=== PATIENT | female | born 1955 | race Hispanic/Latino ===

== ENCOUNTER 2017-05-17 13:32 | Inpatient (IN) | payer MEDICARE, MEDICAID ==
--- NOTE | 2017-05-17 15:26 | HP ---
DATE OF ADMISSION: 05/17/2017 PRIMARY CARE PHYSICIAN: Roman Melendez M.D. CODE STATUS: FULL CODE. PRIMARY RETANNER: Reinaldo Downey M.D. CHIEF COMPLAINT: Shortness of breath. HISTORY OF PRESENT ILLNESS: Patient is a 61-year-old female with morbid obesity , chronic respiratory failure, on home oxygen, status post tracheostomy, COPD, hypertension, obstructive sleep apnea, presented to the emergency room at [place] with worsening shortness of breath of 2 weeks' duration. Shortness of breath is worse on lying down. She also noticed worsening bilateral lower extremity swelling. She also had some cough that was productive of thick whitish phlegm. She also had intermittent wheezing. Due to her progressive worsening symptoms along with weight gain of 18 pounds over the last 2 weeks, she was sent to the emergency room for evaluation. In the emergency room, her initial vital signs showed temperature 98.3, respirations 18, pulse rate of 65 with blood pressure of 155/68. Her x-ray showed pulmonary vascular congestion with questionable infiltrate. Her EKG showed sinus rhythm without significant ST-T wave changes. She received Levaquin 750 mg along with 80 mg of Lasix and DuoNebs and was transferred to this facility. Blood cultures were drawn at [place]. PAST MEDICAL HISTORY: 1. Chronic respiratory failure, status post tracheostomy and home oxygen. 2. Diabetes mellitus type 2. 3. Dyslipidemia. 4. Hypertension. 5. Chronic lymphedema. 6. Morbid obesity. 7. Obstructive sleep apnea. 8. Restless leg syndrome. 9. Anxiety and depression. 10. GERD. 11. Degenerative joint disease. 12. Chronic pain syndrome. 13. Chronic venous insufficiency. PAST SURGICAL HISTORY: Tracheostomy, cholecystectomy in 1995, hysterectomy in 1990. ALLERGIES: The patient is allergic to TYLENOL, IODINE, PENICILLIN-G, and IBUPROFEN. CURRENT MEDICATIONS AT [facility]F: According to the list provided from the retirement, ferrous sulfate 325 mg daily; simvastatin 10 mg daily; Zaroxolyn 5 mg on Tuesday, Tuesday and Tuesday; Xanax as needed; carvedilol 3.125 mg twice a day; Lasix 40 mg b.i.d.; Mucinex 600 mg b.i.d.; Protonix 40 mg twice a day; potassium chloride 40 mEq 3 times a day; DuoNebs as needed. Oxygen through trach mask; Nystatin powder as needed, tramadol as needed. SOCIAL HISTORY: Patient currently lives at [facility] under the care of Dr. Melendez. She is more or less wheelchair bound. Denies current use of smoking, alcohol or drug use. FAMILY HISTORY: Significant for diabetes and coronary artery disease in her mother. REVIEW OF SYSTEMS: The following complete review of systems was negative, unless otherwise mentioned in the HPI or below: Constitutional: Weight loss or gain, ability to conduct usual activities. Skin: Rash, itching. Eyes: Double vision, pain. ENT/Mouth: Nose bleeding, neck stiffness, pain, tenderness. Cardiovascular: Palpitations, dyspnea on exertion, orthopnea. Respiratory: Shortness of breath, wheezing, cough, hemoptysis, fever or night sweats. Gastrointestinal: Poor appetite, abdominal pain, heartburn, nausea, vomiting, constipation, or diarrhea. Genitourinary: Urgency, frequency, dysuria, nocturia. Musculoskeletal: Pain, swelling. Neurologic/Psychiatric: Anxiety, depression. Allergy/Immunologic: Skin rash, bleeding tendency. PHYSICAL EXAMINATION: VITAL SIGNS: As discussed above. Her O2 sat here was 90% on room air. Improved with O2 supplementation. HEENT: Head is atraumatic, normocephalic. Sclerae are anicteric. Moist mucous membranes. No oral lesion. Trach mask in place. NECK: Supple, no JVD, no carotid bruit. LUNGS: Showed bibasilar crackles with scattered rhonchi and wheezing. Lungs were symmetrical. HEART: S1 and S2 present. Regular rate and rhythm. No significant murmur, rubs or gallops are appreciated. ABDOMEN: Soft, obese, bowel sounds present. EXTREMITIES: Bilateral lower extremity swelling. There was 2+ edema, no calf tenderness. SKIN: Warm and dry. LYMPH NODES: No palpable lymph nodes in the neck. PERIPHERAL VASCULAR: Radial pulses palpable bilaterally. MUSCULOSKELETAL: No joint swelling or tenderness. SKIN: Warm and dry. LYMPH NODES: No palpable lymph nodes in the neck. PERIPHERAL VASCULAR: Radial pulses palpable bilaterally. LABORATORY DATA AND IMAGIN. CBC showed WBC 6.9 with hemoglobin 12.2, hematocrit 37.2, and platelet of 228. 2. D-dimer was 0.97. 3. PT, INR, PTT normal range. 4. BNP was 57.7. 5. Cardiac enzymes were negative. Lactic acid was 2.2. Potassium was 3.4. Sodium was 141 with chloride of 99 and bicarbonate of 29. 6. EKG and chest x-ray by my review as discussed above. IMPRESSION: 1. Acute on chronic diastolic heart failure exacerbation. 2. Acute on chronic hypoxic respiratory failure. 3. Obstructive sleep apnea. 4. Morbid obesity. 5. Chronic obstructive pulmonary disease. 6. Chronic lymphedema with chronic venous stasis. 7. Hypertension. 8. Hypokalemia. 9. Gastroesophageal reflux disease. 10. Chronic pain syndrome. 11. Hyperlipidemia. PLAN: The patient will be monitored on the telemetry unit. We will continue O2 supplementation through tracheostomy mask. Pulmonary will be consulted in a.m. We will continue gentle diuretics. Nebulizer treatments will be added. We will hold steroids for now. We will resume selected home medications. We will replace potassium. Plan of care was discussed with the patient. She stated understanding. The patient was extensively counseled on heart failure. Plan of care was discussed with the patient. She stated understanding. The patient will require 2-3 days for stabilization. MTDD
[2017-05-17] MEDS ORDERED: Ondansetron HCl/PF 4 MG/2 ML Vial IVP PRN ×2 (17:26→17:42)
[2017-05-17] MEDS ORDERED: Ondansetron ODT 4 MG TAB SL PRN (17:26)
[2017-05-17] MEDS ORDERED: hydrALAZINE 20 MG/ML VIAL SLOW IVP PRN (17:42)
[2017-05-17] MEDS ORDERED: Ondansetron ODT 4 MG TAB PO PRN (17:42)
[2017-05-17] MEDS ORDERED: Calcium Carbonate 500 MG ChewTAB PO PRN (17:42)
[2017-05-17] MEDS ORDERED: Nitroglycerin 0.4 MG TAB (25 Tab Bottle) PO PRN (17:42)
[2017-05-17] MEDS ORDERED: Senokot 8.6 MG TAB PO PRN (17:42)
[2017-05-17] MEDS ORDERED: Acetaminophen 325 MG TAB PO PRN (17:42)
[2017-05-17] MEDS ORDERED: Potassium Chloride 20 MEQ TAB PO SCH (18:45)
[2017-05-17] MEDS ORDERED: Furosemide 100 MG in Sodium Chloride 0.9% 100 ML IVPB SCH (19:00)
[2017-05-17] MEDS: traMADol HCl 50 MG TAB PO PRN (21:11)
[2017-05-17] MEDS: Carvedilol 3.125 MG TAB PO SCH (21:29)
[2017-05-17] MEDS: Simvastatin 5 MG TAB PO SCH (21:29)
[2017-05-17] MEDS: Enoxaparin Sodium 40 MG/0.4 ML SYRINGE SC SCH (21:29)
[2017-05-17] MEDS: Docusate 100 MG CAP PO SCH (21:29)
[2017-05-17] MEDS: Nystatin Powder 15 GM BOT TOP SCH (21:30)
[2017-05-17] MEDS: Famotidine 20 MG TAB PO SCH (21:52)
[2017-05-18 05:33] LABS: #Basophils 0.1 thou/uL (0.0-0.2); #Eosinphils 0.2 thou/uL (0.0-0.7); #Lymphocytes 1.8 thou/uL (1.20-3.40); #Monocytes 0.6 thou/uL (0.11-0.59); #Neutrophils 3.2 thou/uL (1.40-6.50); %Basophils 0.9 % (0.0-1.0); %Eosinophils 2.7 % (0.0-10.0); %Lymphocytes 31.6 % (21.0-51.0); %Monocytes 9.9 % (0.0-10.0); Hematocrit 34.2 % (36.0-47.0); Mean Platelet Volume 6.6 fL (7.4-10.4); Red Blood Cell (RBC) Count 3.72 mill/uL (4.20-5.40); White Blood Cell (WBC) Count 5.8 thou/uL (4.8-10.8)
[2017-05-18 06:03] LABS: Anion Gap 13 mmol/L (10-20); BUN (Urea Nitrogen) 14 mg/dL (9.8-20.1); Calc. Creatinine Clearance 229 mL/min (70-130); Calcium 8.9 mg/dL (7.8-10.44); Carbon Dioxide 29 mmol/L (23-31); Chloride 100 mmol/L (98-107); Estimated GFR-MDRD 74; Magnesium 1.7 mg/dL (1.6-2.6); Phosphorus 3.1 mg/dL (2.3-4.7)
[2017-05-18 06:04] LABS: Bilirubin Negative (Negative); Blood, Urine Trace (Negative); Glucose, Urine (Dipstick) Negative (Negative); Ketone, Urine Negative (Negative); Nitrite Negative (Negative); Protein, Urine (Dipstick) Negative (Neg-Trace); Urobilinogen 0.2 mg/dL (0.2-1.0)
[2017-05-18 06:07] LABS: Bacteria/HPF 4+ HPF (None Seen); Hyaline Casts/LPF 0-3 HYALINE CAST LPF (0-3 Hyaline); Squamous Epithelial None Seen HPF (0-3)
[2017-05-18] MEDS ORDERED: Potassium Chloride 20 MEQ TAB PO SCH (08:30)
[2017-05-18] MEDS ORDERED: FLU VACC QS2017-18 36 mo. & older 0.5 ML SYRINGE IM ONE (09:00)
[2017-05-18] MEDS: Carvedilol 3.125 MG TAB PO SCH ×2 (09:36→20:56)
[2017-05-18] MEDS: Famotidine 20 MG TAB PO SCH ×2 (09:36→20:57)
[2017-05-18] MEDS: Potassium Chloride 20 MEQ TAB PO SCH ×3 (09:36→16:17)
[2017-05-18] MEDS: Docusate 100 MG CAP PO SCH ×2 (09:36→20:58)
[2017-05-18] MEDS: Nystatin Powder 15 GM BOT TOP SCH ×2 (09:37→21:00)
--- NOTE | 2017-05-18 09:41 | ULT ---
BILATERAL LOWER EXTREMITY VENOUS ULTRASOUND WITH DOPPLER: History: Elevated D-Dimer. Comparison: 12-05-16 Technique: Grayscale, color flow, doppler imaging, and spectral waveform analysis performed of the ri ght and left lower extremity venous system. FINDINGS: Bilaterally, there is compressibility, presence of flow and augmentation in the common femoral vein, femoral vein, and popliteal veins. There is flow in bilateral greater saphenous veins, profunda veins , and posterior tibial veins. IMPRESSION: No evidence of thrombus in the bilateral lower extremity venous system. POS: DAVE
--- NOTE | 2017-05-18 10:01 | RAD ---
"PORTABLE UPRIGHT FRONTAL CHEST RADIOGRAPH: Date: 05-18-17 Comparison: 05-17-17 History: Shortness of breath. FINDINGS: | There is a tracheostomy tube in place. There is no pneumothorax. Cardiac silhouette is enlarged. Ther e is pulmonary vascular prominence and interstitial prominence in the perihilar regions in both lung bases, stable. No lobar consolidation or alveolar edema. IMPRESSION: Stable prominence of the cardiac silhouette is pulmonary vascular congestion and perihilar interstiti al prominence. No alveolar edema or focal consolidation. POS: DAVE"
--- NOTE | 2017-05-18 14:12 | PDOC.PN ---
- Subjective Encounter Start Date: 05/18/17 Encounter Start Time: 14:11 Patient seen and examined. No new complaints. No overnight events. SOB improving. Some cough - mostly dry. - Objective Resuscitation Status: Resuscitation Status FULL:Full Resuscitation MAR Reviewed: Yes Vital Signs & Weight: Vital Signs (12 hours) Temp Pulse Resp BP BP Pulse Ox 05/18/17 11:08 97.7 F 70 24 H 141/84 H 94 L 05/18/17 10:45 83 16 98 05/18/17 09:32 98.4 F 95 20 145/80 H 92 L 05/18/17 07:21 97 05/18/17 07:17 82 16 97 05/18/17 07:08 98.6 F 68 20 05/18/17 03:09 98.6 F 68 20 167/74 H 98 05/18/17 03:08 71 16 99 Weight Weight 437 lb 4 oz I&O: 05/17/17 05/18/17 05/19/17 06:59 06:59 06:59 Intake Total 750 Output Total 500 Balance 250 Result Diagrams: 05/19/17 05:30 05/19/17 06:16 EKG Reviewed by me: Yes (Tele SR) Phys Exam - Physical Examination Constitutional: NAD Neck: no nodes, no JVD Trach + Respiratory: no wheezing, no rhonchi Scat rales at bases, Symmetrical Cardiovascular: RRR, no significant murmur, no rub no heaves/pulsations Gastrointestinal: soft, non-tender, no distention, positive bowel sounds Musculoskeletal: edema present Neurological: non-focal, normal sensation, moves all 4 limbs Psychiatric: normal affect, A&O x 3 Dx/Plan - Plan cont current plan of care, continue antibiotics, PT/OT, family welfare social work professor, respiratory therapy, DVT proph w/SCDs IMPRESSION: 1. Acute on chronic diastolic heart failure exacerbation. 2. Acute on chronic hypoxic respiratory failure. 3. Obstructive sleep apnea. 4. Morbid obesity. 5. Chronic obstructive pulmonary disease. 6. Chronic lymphedema with chronic venous stasis. 7. Hypertension. 8. Hypokalemia. 9. Gastroesophageal reflux disease. 10. Chronic pain syndrome. 11. Hyperlipidemia. PLAN: * Change Lasix drip to 3 mg/hr * Cont fluid restriction * Counselled on heart failure * Cont current meds as below * AM labs * Replace Potassium * Monitor electrolytes closely Review of Systems - Review of Systems Constitutional: negative: Fever, Chills, Sweats, Weakness, Malaise Cardiovascular: negative: Chest Pain, Palpitations, Orthopnea, Paroxysmal Noc. Dyspnea, Edema, Light Headedness Gastrointestinal: negative: Nausea, Vomiting, Abdominal Pain, Diarrhea, Constipation, Melena, Hematochezia - Medications/Allergies Allergies/Adverse Reactions: Allergies Allergy/AdvReac Type Severity Reaction Status Date / Time acetaminophen [From Tylenol] Allergy Verified 12/06/16 01:19 alprazolam Allergy Verified 12/06/16 01:19 hydrocodone Allergy Verified 12/06/16 01:19 iodine Allergy Verified 12/06/16 01:19 latex Allergy Verified 12/06/16 01:19 NSAIDS (Non-Steroidal Allergy Verified 12/06/16 01:19 Anti-Inflamma Penicillins Allergy Verified 12/06/16 01:19 promethazine HCl Allergy Verified 12/06/16 01:19 [From Phenergan] ropinirole Allergy Verified 12/06/16 01:19 Medications: Current Medications Acetaminophen (Tylenol) 650 mg PO Q4H PRN PRN Reason: Headache/Fever or Pain Albuterol/Ipratropium (Duoneb) 3 ml NEB [id number] [facility] Last Admin: 05/18/17 10:45 Dose: 3 ml Albuterol/Ipratropium (Duoneb) 3 ml NEB [id number] PRN PRN Reason: SOB &/or Wheezing Calcium Carbonate (Tums) 1,000 mg PO Q4H PRN PRN Reason: Heartburn or Indigestion Carvedilol (Coreg) 3.125 mg PO BID [facility] Last Admin: 05/18/17 09:36 Dose: 3.125 mg Docusate Sodium (Colace) 100 mg PO BID [facility] Last Admin: 05/18/17 09:36 Dose: Not Given Enoxaparin Sodium (Lovenox) 40 mg SC 2100 [facility] Last Admin: 05/17/17 21:29 Dose: 40 mg Famotidine (Pepcid) 20 mg PO BID [facility] Last Admin: 05/18/17 09:36 Dose: 20 mg Hydralazine HCl (Apresoline) 10 mg SLOW IVP Q4H PRN PRN Reason: SBP Greater Than 180 Furosemide 100 mg/ Sodium (Chloride) 110 mls @ 5.5 mls/hr IVPB INF [facility] PRN Reason: 5 MG/HR Last Admin: 05/17/17 21:52 Dose: 110 mls Levofloxacin 500 mg/ Device 100 mls @ 100 mls/hr IVPB Q24HR [facility] Last Admin: 05/18/17 09:36 Dose: 100 mls Nitroglycerin (Nitrostat) 0.4 mg PO Q5MIN PRN PRN Reason: Chest Pain Nystatin (Mycostatin Powder) 0 gm TOP BID [facility] Last Admin: 05/18/17 09:37 Dose: 1 applic Ondansetron HCl (Zofran Odt) 4 mg PO Q6H PRN PRN Reason: Nausea/Vomiting Ondansetron HCl (Zofran) 4 mg IVP Q6H PRN PRN Reason: Nausea/Vomiting Potassium Chloride (K-Dur) 40 meq PO TID[facility] Last Admin: 05/18/17 12:29 Dose: 40 meq Senna (Senokot) 2 tab PO HSPRN PRN PRN Reason: Constipation Simvastatin (Zocor) 10 mg PO HS [facility] Last Admin: 05/17/17 21:29 Dose: 10 mg Sodium Chloride (Flush - Normal Saline) 10 ml IVF PRN PRN PRN Reason: Saline Flush Tramadol HCl (Ultram) 50 mg PO Q4H PRN PRN Reason: Moderate Pain (4-6) Last Admin: 05/17/17 21:11 Dose: 50 mg
[2017-05-18] MEDS ORDERED: Eucerin (Mineral Oil/Petrolatum,White) 30 gm Jar TOP PRN (14:28)
[2017-05-18] MEDS ORDERED: Polyethylene Glycol 3350 17 GM Packet PO PRN (14:28)
[2017-05-18 15:29] VITALS: BMI 85.3
[2017-05-18] MEDS: traMADol HCl 50 MG TAB PO PRN ×2 (16:15→20:57)
[2017-05-18] MEDS: Furosemide 100 MG in Sodium Chloride 0.9% 100 ML IVPB SCH (17:21)
[2017-05-18] MEDS: Simvastatin 5 MG TAB PO SCH (20:57)
[2017-05-18] MEDS: Enoxaparin Sodium 40 MG/0.4 ML SYRINGE SC SCH (20:58)
[2017-05-19 05:40] LABS: #Eosinphils 0.2 thou/uL (0.0-0.7); #Lymphocytes 2.2 thou/uL (1.20-3.40); #Monocytes 0.5 thou/uL (0.11-0.59); %Basophils 0.2 % (0.0-1.0); %Eosinophils 3.1 % (0.0-10.0); %Lymphocytes 37.8 % (21.0-51.0); %Monocytes 8.8 % (0.0-10.0); Hematocrit 34.1 % (36.0-47.0); Mean Platelet Volume 6.7 fL (7.4-10.4); Red Blood Cell (RBC) Count 3.69 mill/uL (4.20-5.40); White Blood Cell (WBC) Count 5.9 thou/uL (4.8-10.8)
[2017-05-19 06:46] LABS: Anion Gap 11 mmol/L (10-20); BUN (Urea Nitrogen) 14 mg/dL (9.8-20.1); Calc. Creatinine Clearance 188 mL/min (70-130); Calcium 8.9 mg/dL (7.8-10.44); Carbon Dioxide 30 mmol/L (23-31); Chloride 101 mmol/L (98-107); Estimated GFR-MDRD 59; Magnesium 1.7 mg/dL (1.6-2.6); Phosphorus 3.5 mg/dL (2.3-4.7)
[2017-05-19] MEDS: Carvedilol 3.125 MG TAB PO SCH ×2 (08:40→20:20)
[2017-05-19] MEDS: Potassium Chloride 20 MEQ TAB PO SCH ×3 (08:40→17:26)
[2017-05-19] MEDS: Docusate 100 MG CAP PO SCH ×2 (08:41→20:21)
[2017-05-19] MEDS: Nystatin Powder 15 GM BOT TOP SCH ×2 (08:41→20:25)
[2017-05-19] MEDS: Famotidine 20 MG TAB PO SCH ×2 (08:41→20:21)
[2017-05-19] MEDS: traMADol HCl 50 MG TAB PO PRN ×2 (15:12→20:23)
--- NOTE | 2017-05-19 15:12 | PDOC.PN ---
- Subjective Encounter Start Date: 05/19/17 Encounter Start Time: 11:30 Patient seen and examined. No new complaints. No overnight events. Some cough with scant production. No fever. - Objective Resuscitation Status: Resuscitation Status FULL:Full Resuscitation MAR Reviewed: Yes Vital Signs & Weight: Vital Signs (12 hours) Temp Pulse Pulse Pulse Resp BP BP 05/19/17 13:51 79 16 05/19/17 12:00 98.4 F 63 16 05/19/17 11:26 63 66 152/72 H 169/86 H 05/19/17 10:20 75 16 05/19/17 08:35 97.6 F 70 19 05/19/17 07:31 89 18 05/19/17 04:00 98.0 F 91 20 BP BP Pulse Ox Pulse Ox Pulse Ox 05/19/17 13:51 05/19/17 12:00 144/70 H 95 05/19/17 11:26 94 L 94 L 05/19/17 10:20 95 05/19/17 08:35 144/81 H 94 L 05/19/17 07:31 93 L 05/19/17 04:00 146/70 H 94 L Weight Admit Weight 438 lb 1.6 oz Weight 433 lb I&O: 05/18/17 05/19/17 05/20/17 06:59 06:59 06:59 Intake Total 750 1126 Output Total 500 2250 Balance 250 -1124 Result Diagrams: 05/19/17 05:30 05/19/17 06:16 EKG Reviewed by me: Yes (Tele SR) Phys Exam - Physical Examination Constitutional: NAD Respiratory: no wheezing, no rhonchi Scat rales at bases Cardiovascular: RRR, no rub Gastrointestinal: soft, non-tender, positive bowel sounds Neurological: non-focal, moves all 4 limbs Dx/Plan - Plan cont current plan of care, continue antibiotics, PT/OT, respiratory therapy, DVT proph w/lovenox, DVT proph w/SCDs IMPRESSION: 1. Acute on chronic diastolic heart failure exacerbation. on Lasix drip 2. Acute on chronic hypoxic respiratory failure. s/p trach 3. Obstructive sleep apnea. 4. Morbid obesity. 5. Chronic obstructive pulmonary disease. 6. Chronic lymphedema with chronic venous stasis. 7. Hypertension. 8. Hypokalemia. 9. Gastroesophageal reflux disease. 10. Chronic pain syndrome. 11. Hyperlipidemia. 12. UTI - GNR PLAN: * Cont Lasix drip @ 3 mg/hr * Potassium chloride 40 meq extra today * Cont fluid restriction * Cont current meds as below * AM labs * Monitor electrolytes closely * DC planning Review of Systems - Review of Systems Cardiovascular: negative: Chest Pain, Palpitations, Orthopnea, Paroxysmal Noc. Dyspnea, Edema, Light Headedness Gastrointestinal: negative: Nausea, Vomiting, Abdominal Pain, Diarrhea, Constipation, Melena, Hematochezia - Medications/Allergies Allergies/Adverse Reactions: Allergies Allergy/AdvReac Type Severity Reaction Status Date / Time acetaminophen [From Tylenol] Allergy Verified 12/06/16 01:19 alprazolam Allergy Verified 12/06/16 01:19 hydrocodone Allergy Verified 12/06/16 01:19 iodine Allergy Verified 12/06/16 01:19 latex Allergy Verified 12/06/16 01:19 NSAIDS (Non-Steroidal Allergy Verified 12/06/16 01:19 Anti-Inflamma Penicillins Allergy Verified 12/06/16 01:19 promethazine HCl Allergy Verified 12/06/16 01:19 [From Phenergan] ropinirole Allergy Verified 12/06/16 01:19 Medications: Current Medications Acetaminophen (Tylenol) 650 mg PO Q4H PRN PRN Reason: Headache/Fever or Pain Albuterol/Ipratropium (Duoneb) 3 ml NEB [id number] [facility] Last Admin: 05/19/17 13:51 Dose: 3 ml Albuterol/Ipratropium (Duoneb) 3 ml NEB [id number] PRN PRN Reason: SOB &/or Wheezing Calcium Carbonate (Tums) 1,000 mg PO Q4H PRN PRN Reason: Heartburn or Indigestion Carvedilol (Coreg) 3.125 mg PO BID [facility] Last Admin: 05/19/17 08:40 Dose: 3.125 mg Docusate Sodium (Colace) 100 mg PO BID [facility] Last Admin: 05/19/17 08:41 Dose: Not Given Enoxaparin Sodium (Lovenox) 40 mg SC 2100 [facility] Last Admin: 05/18/17 20:58 Dose: 40 mg Famotidine (Pepcid) 20 mg PO BID [facility] Last Admin: 05/19/17 08:41 Dose: 20 mg Guaifenesin (Mucinex) 600 mg PO Q12HR [facility] Hydralazine HCl (Apresoline) 10 mg SLOW IVP Q4H PRN PRN Reason: SBP Greater Than 180 Furosemide 100 mg/ Sodium (Chloride) 110 mls @ 3.3 mls/hr IVPB INF [facility] PRN Reason: 3 MG/HR Last Admin: 05/18/17 17:21 Dose: 110 mls Levofloxacin (Levaquin) 500 mg PO 0600 [facility] Mineral Oil/White Petrolatum (Eucerin Cream) 0 gm TOP BIDPRN PRN PRN Reason: Dry Skin Nitroglycerin (Nitrostat) 0.4 mg PO Q5MIN PRN PRN Reason: Chest Pain Nystatin (Mycostatin Powder) 0 gm TOP BID [facility] Last Admin: 05/19/17 08:41 Dose: 1 applic Ondansetron HCl (Zofran Odt) 4 mg PO Q6H PRN PRN Reason: Nausea/Vomiting Ondansetron HCl (Zofran) 4 mg IVP Q6H PRN PRN Reason: Nausea/Vomiting Polyethylene Glycol (Miralax) 17 gm PO DAILY PRN PRN Reason: Constipation Potassium Chloride (K-Dur) 40 meq PO TID-WM [facility] Last Admin: 05/19/17 12:43 Dose: 40 meq Potassium Chloride (K-Dur) 40 meq PO 2100 [facility] Stop: 05/19/17 21:01 Senna (Senokot) 2 tab PO HSPRN PRN PRN Reason: Constipation Simvastatin (Zocor) 10 mg PO HS [facility] Last Admin: 05/18/17 20:57 Dose: 10 mg Sodium Chloride (Flush - Normal Saline) 10 ml IVF PRN PRN PRN Reason: Saline Flush Tramadol HCl (Ultram) 50 mg PO Q4H PRN PRN Reason: Moderate Pain (4-6) Last Admin: 05/19/17 15:12 Dose: 50 mg
[2017-05-19] MEDS: Enoxaparin Sodium 40 MG/0.4 ML SYRINGE SC SCH (20:23)
[2017-05-19] MEDS: Simvastatin 5 MG TAB PO SCH (20:23)
[2017-05-19] MEDS: guaiFENesin ER 600 MG TAB PO SCH (20:24)
[2017-05-19] MEDS ORDERED: Potassium Chloride 20 MEQ TAB PO SCH (21:00)
[2017-05-20] MEDS: traMADol HCl 50 MG TAB PO PRN ×2 (05:31→20:49)
[2017-05-20] MEDS: Furosemide 100 MG in Sodium Chloride 0.9% 100 ML IVPB SCH (05:32)
[2017-05-20 06:02] LABS: Anion Gap 12 mmol/L (10-20); BUN (Urea Nitrogen) 19 mg/dL (9.8-20.1); Calc. Creatinine Clearance 167 mL/min (70-130); Calcium 9.1 mg/dL (7.8-10.44); Carbon Dioxide 26 mmol/L (23-31); Chloride 105 mmol/L (98-107); Estimated GFR-MDRD 52
[2017-05-20] MEDS: guaiFENesin ER 600 MG TAB PO SCH ×2 (08:20→20:49)
[2017-05-20] MEDS: Carvedilol 3.125 MG TAB PO SCH ×2 (08:20→20:49)
[2017-05-20] MEDS: Potassium Chloride 20 MEQ TAB PO SCH ×3 (08:20→17:51)
[2017-05-20] MEDS: Docusate 100 MG CAP PO SCH ×2 (08:20→20:49)
[2017-05-20] MEDS: Famotidine 20 MG TAB PO SCH ×2 (08:20→20:48)
[2017-05-20] MEDS: Nystatin Powder 15 GM BOT TOP SCH ×2 (08:20→20:47)
--- NOTE | 2017-05-20 12:08 | PRG ---
DATE OF SERVICE: 05/20/2017 SUBJECTIVE: The patient was seen and examined at the bedside. She is able to answer all my question s. She feels somewhat better. OBJECTIVE: VITAL SIGNS: Blood pressure is 158/79, pulse is 63, respiratory rate is 16, O2 saturation is 93%, an d temperature is 97.7. GENERAL: She is a very obese lady with a BMI calculated at 83.8. HEENT: Eyes; PERRLA. Sclerae nonicteric. Conjunctivae pinkish. Oral mucosa is moist. She has a tr acheostomy in place. LUNGS: Clear, although breath sounds, somewhat diminished at both bases. HEART: S1, S2 normal, no S3, no S4, no murmur. ABDOMEN: Very obese. Bowel sounds are present, no organomegaly. EXTREMITIES: Lymphedema present bilaterally, approximately 3-4+ similar bilaterally. NEUROLOGIC: She is alert and oriented x4. There is not any motor deficits. Cranial nerves are inta ct. LABORATORY DATA: Showed a normal BMP with creatinine of 1.06. Microbiology; urinalysis showed E. co li resistant to levofloxacin, sensitive to nitrofurantoin and cephalosporins. IMPRESSION: 1. Acute on chronic diastolic heart failure exacerbation. Lasix drip will be stopped. She will be started on 80 mg of Lasix IV push given twice a day. 2. Acute on chronic hypoxic respiratory failure, status post tracheostomy, which is functioning well . 3. Obstructive sleep apnea. 4. Morbid obesity. 5. Chronic obstructive pulmonary disease. 6. Chronic lymphedema with chronic venous stasis. 7. Morbid obesity with very high BMI. 8. Hypertension. 9. Gastroesophageal reflux disease. 10. Hyperlipidemia. 11. Urinary tract infection with Escherichia coli which is resistant to Levaquin. PLAN: Switch her to Lasix IV push 80 mg twice a day, stop levofloxacin, start Macrodantin 50 mg 4 ti mes a day for her urinary tract infection. Follow up with a.m. labs tomorrow and continue fluid rest riction and most likely she would be able to go back to [facility] tomorrow.
[2017-05-20] MEDS: Nitrofurantoin Macrocrystal 50 MG CAP PO SCH ×3 (13:42→20:48)
[2017-05-20] MEDS: Furosemide 100 MG/10 ML VIAL SLOW IVP SCH (13:42)
[2017-05-20] MEDS: Simvastatin 5 MG TAB PO SCH (20:48)
[2017-05-20] MEDS: Enoxaparin Sodium 40 MG/0.4 ML SYRINGE SC SCH (20:50)
[2017-05-21] MEDS: Furosemide 100 MG/10 ML VIAL SLOW IVP SCH ×2 (05:45→14:12)
[2017-05-21 06:24] LABS: Anion Gap 10 mmol/L (10-20); BUN (Urea Nitrogen) 19 mg/dL (9.8-20.1); Calc. Creatinine Clearance 193 mL/min (70-130); Calcium 9.2 mg/dL (7.8-10.44); Carbon Dioxide 29 mmol/L (23-31); Chloride 106 mmol/L (98-107); Estimated GFR-MDRD 62
[2017-05-21] MEDS: Potassium Chloride 20 MEQ TAB PO SCH ×3 (07:52→17:59)
[2017-05-21] MEDS: Nystatin Powder 15 GM BOT TOP SCH ×2 (07:53→20:30)
[2017-05-21] MEDS: guaiFENesin ER 600 MG TAB PO SCH ×2 (07:53→20:26)
[2017-05-21] MEDS: Famotidine 20 MG TAB PO SCH ×2 (07:53→20:26)
[2017-05-21] MEDS: Nitrofurantoin Macrocrystal 50 MG CAP PO SCH ×4 (07:53→20:26)
[2017-05-21] MEDS: Docusate 100 MG CAP PO SCH ×2 (07:53→20:26)
[2017-05-21] MEDS: Carvedilol 3.125 MG TAB PO SCH ×2 (07:53→20:29)
[2017-05-21] MEDS ORDERED: Senokot 8.6 MG TAB PO PRN ×2 (12:44→12:50)
[2017-05-21] MEDS ORDERED: Bisacodyl 5 MG TAB PO PRN (12:44)
[2017-05-21] MEDS ORDERED: traMADol HCl 50 MG TAB PO PRN (12:44)
[2017-05-21] MEDS: traMADol HCl 50 MG TAB PO PRN ×2 (14:13→20:26)
--- NOTE | 2017-05-21 18:24 | PRG ---
DATE OF SERVICE: 05/21/2017 SUBJECTIVE: The patient seen and examined at the bedside. She is definitely feeling better. She is getting diuresed with IV Lasix. She is able to ambulate in the room with some assistance with a wal ker. Her weight is down to 430 pounds and 12 ounces. OBJECTIVE: VITAL SIGNS: Blood pressure is 141/76, pulse is 70, respiratory rate is 18, and O2 saturation is 95% . She is on 5 liters of O2 through her tracheostomy tube. HEENT: Eyes, PERRLA. Conjunctivae pinkish. Oral mucosa is moist. Tracheostomy tube is in place, f unctioning well. LUNGS: Breath sounds diminished at both bases. No rales or wheezing, no crackles. HEART: S1, S2 distant, no S3, no S4. ABDOMEN: Very obese. Bowel sounds are present, no organomegaly. EXTREMITIES: Lymphedema bilaterally on both lower extremities with some venous stasis above her both ankles. No ulcerations though. NEUROLOGIC: She is alert and oriented x4. There is no any memory or focal deficits. LABORATORY DATA: Showed a normal CMP. IMPRESSION: 1. Acute on chronic diastolic heart failure exacerbation. The patient was switched to Lasix 80 mg I V push q.12 hours. I's and O's showed balance of 1510 negative. 2. Morbid obesity. 3. Obstructive sleep apnea. 4. Acute on chronic respiratory failure, status post tracheostomy, which is functioning well. 5. Chronic obstructive pulmonary disease, stable. 6. Chronic lymphedema with chronic venous stasis, stable. 7. Hypertension. 8. Hyperlipidemia. 9. Urinary tract infection with E. coli. The patient was started on Macrodantin yesterday since the E. coli was resistant to levofloxacin, the previous antibiotic she was getting. PLAN: My plan is to continue her diuretic and had Zaroxolyn and she should be able to go back to the [facility] tomorrow.
[2017-05-21] MEDS: Enoxaparin Sodium 40 MG/0.4 ML SYRINGE SC SCH (20:25)
[2017-05-21] MEDS ORDERED: Simvastatin 20 MG TAB PO SCH (21:00)
[2017-05-22] MEDS: traMADol HCl 50 MG TAB PO PRN ×2 (01:11→11:40)
[2017-05-22] MEDS: Furosemide 100 MG/10 ML VIAL SLOW IVP SCH ×2 (07:35→14:19)
[2017-05-22] MEDS: Nitrofurantoin Macrocrystal 50 MG CAP PO SCH ×2 (08:56→11:41)
[2017-05-22] MEDS: Potassium Chloride 20 MEQ TAB PO SCH ×2 (08:56→11:41)
[2017-05-22] MEDS: Famotidine 20 MG TAB PO SCH (08:57)
[2017-05-22] MEDS: Nystatin Powder 15 GM BOT TOP SCH (08:57)
[2017-05-22] MEDS: guaiFENesin ER 600 MG TAB PO SCH (08:57)
[2017-05-22] MEDS: Carvedilol 3.125 MG TAB PO SCH (08:58)
[2017-05-22] MEDS: Docusate 100 MG CAP PO SCH (08:58)
[2017-05-22] MEDS ORDERED: Metolazone 5 MG TAB PO SCH (09:00)
[2017-05-22 13:32] VITALS: BP 168/80; TEMP 97.4
--- NOTE | 2017-05-22 17:36 | DIS ---
DATE OF SERVICE: 05/22/2017 DIAGNOSES AT THE TIME OF DISCHARGE: 1. Acute on chronic diastolic heart failure exacerbation. 2. Chronic obstructive pulmonary disease, stable. 3. Acute on chronic respiratory failure, status post tracheostomy in the past. 4. Morbid obesity. 5. Obstructive sleep apnea. 6. Hypertension. 7. Chronic lymphedema with chronic venous stasis, stable. 8. Hyperlipidemia. 9. Urinary tract infection with Escherichia coli. HOSPITAL COURSE: The patient is a 61-year-old morbidly obese patient with history of chronic respira tory failure on home oxygen, status post tracheostomy, COPD, hypertension, obstructive sleep apnea wh o presented to the emergency room at [facility] with worsening shortness of breath of 2 weeks' dura tion. She has shortness of breath which was going on for approximately 2 weeks prior to this emergen cy room visit, it was worse on lying down. She also noticed more bilateral lower extremity swelling. Also, she complained about some cough that was productive of thick whitish phlegm. She gained appr oximately 18 pounds over the last 2 weeks prior to this hospitalization, so she was sent to the emerg ency room for further evaluation. The chest x-ray showed pulmonary vascular congestion with question able infiltrate. Electrocardiogram shows sinus rhythm with no significant ST-T wave changes. She re ceived 1 dose of levofloxacin 750 mg IV piggyback along with 80 mg of Lasix IV push and DuoNebs and w as transferred to [facility] for further hospitalization. The patient got admitted to the ospital. During this admission, her white count was 6.9, hemoglobin 12.2, hematocrit 37.2, and plate let count was 228. D-dimers were 0.97. BNP was 57.7. Cardiac enzymes were negative. Lactic acid w as 2.2, potassium was 3.4, sodium 141, chloride 99, and bicarbonate of 29. The patient got admitted to telemetry unit. Pulmonary was consulted and she was placed on Lasix drip on fluid restriction. S he was counseled on heart failure. Her potassium was replaced because she had some hypokalemia with the level of 3.1 at the time of admission. Subsequently, she was switched to 80 of Lasix q.12h. She started putting out more urine. She diuresed average around 1500 mL per 24 hours and her weight chase t down from 437 to 421, so she lost approximately 16 pounds. She feels better and her urine culture came back positive for E. coli. Originally she was on levofloxacin antibiotic, then she was switched to nitrofurantoin since levofloxacin was resistant. The patient is doing well. She is able to ambu late with some assistance with PT. Her blood pressure is 138/67, pulse is 72, temperature is 98.2, r espiratory rate is 16, and O2 saturation is 96% and she has been using her tracheostomy tube with add itional O2 supplementation. Her blood cultures /2 was growing micrococcus which is most likely cont amination, so she is seen and examined before she is discharged back to the assisted. She is fro [facility]. She will stay on low salt diet. I consulted her about limiting fluids. She said that she drinks not more than 2 jars a day, which is adequate what we wanted to be. Her m edications at the time of discharge, nitrofurantoin 50 mg 4 times a day for the next 7 days along wit h her other home medications which are potassium 20 mEq 3 times a day, pantoprazole 40 mg twice a day , nystatin powder twice a day, Zaroxolyn she would take 1 tablet every Tuesday, Tuesday, Tuesday, , and Tuesday and she will skip Saturdays and Sundays. Also, she will take DuoNebs 4 times a da y, furosemide 40 mg twice a day, tramadol 50 mg 1 tablet every 4 hours p.r.n. as needed, simvastatin 10 mg at bedtime, sennosides which is Senokot 8.6 mg 2 tablets p.r.n., carvedilol 3.125 mg twice a da y, and guaifenesin 600 mg q.12 h. She will need weekly BMP with magnesium levels until she gets stab ilized on this new regimen. She will need to follow up with her primary care physician in 1 week and the time spent on this discharge is more than 30 minutes.
== END 2017-05-22 16:22 | DRG 291 ==
LOC: ERS 13:32 → 2NO 14:49
PROVIDERS: ADMIT Internal Medicine; ATTEND Internal Medicine
DX: I11.0 Hypertensive heart disease with heart failure (principal); J96.21 Acute and chronic respiratory failure with hypoxia; Z93.0 Tracheostomy status; Z99.81 Dependence on supplemental oxygen; Z68.45 Body mass index [BMI] 70 or greater, adult; N39.0 Urinary tract infection, site not specified; I50.33 Acute on chronic diastolic (congestive) heart failure; J44.9 Chronic obstructive pulmonary disease, unspecified; E66.01 Morbid (severe) obesity due to excess calories; Z99.3 Dependence on wheelchair; E87.6 Hypokalemia; B96.20 Unspecified Escherichia coli [E. coli] as the cause of diseases classified elsewhere; E78.5 Hyperlipidemia, unspecified; G25.81 Restless legs syndrome; G47.33 Obstructive sleep apnea (adult) (pediatric); K21.9 Gastro-esophageal reflux disease without esophagitis; M19.90 Unspecified osteoarthritis, unspecified site; G89.4 Chronic pain syndrome; I87.8 Other specified disorders of veins; I89.0 Lymphedema, not elsewhere classified; F41.9 Anxiety disorder, unspecified; F32.9 Major depressive disorder, single episode, unspecified; Z16.29 Resistance to other single specified antibiotic; Z88.0 Allergy status to penicillin; Z88.8 Allergy status to other drugs, medicaments and biological substances; Z91.041 Radiographic dye allergy status; Z91.040 Latex allergy status
CPT/HCPCS: 36415; 71010; 80048; 81003; 81015; 83735; 84100; 85025; 87077; 87086; 87186; 93970; 94640; 94760; G8978-GP-CJ; G8979-GP-CI; G8987-GO-CL; G8988-GO-CJ; J1650; J1940; J1956; J7050; J7620

== ENCOUNTER 2019-04-30 21:24 | Inpatient (IN) | payer MEDICARE, MEDICAID ==
--- NOTE | 2019-04-30 22:11 | RAD ---
EXAM: Single view of the chest HISTORY: Shortness of breath COMPARISON: 05/18/2017 FINDINGS: Single view of the chest shows an enlarged but stable cardiomediastinal silhouette. The tr acheostomy is unchanged in position. There may be airspace opacity in the right lung base. The bones are unremarkable. IMPRESSION: Possible right lower lobe infiltrate.
[2019-04-30 22:20] LABS: Hemoglobin 12.5 g/dL (12.0-16.0); Mean Corpuscular HGB CONC 32.1 g/dL (32.0-36.0); Mean Corpuscular Hemoglobin 28.8 pg (27.0-31.0); Mean Corpuscular Volume 89.9 fL (78.0-98.0); Mean Platelet Volume 7.4 fL (7.4-10.4); Platelet Count 209 thou/uL (130-400); RBC Distribution Width 14.4 % (11.5-14.5); Red Blood Cell (RBC) Count 4.32 mill/uL (4.20-5.40); White Blood Cell (WBC) Count 13.9 thou/uL (4.8-10.8)
[2019-04-30 22:41] LABS: Band 4 % (5-11); MDiff Complete? YES; Monocytes 3 % (0-10); Neutrophil 93 % (42-75); Platelet Morphology Comment Appears Adequate; RBC Morphology Normal
[2019-04-30 23:14] LABS: ALT (SGPT) 9 U/L (8-55); AST (SGOT) 10 U/L (5-34); Albumin 3.4 g/dL (3.4-4.8); Alkaline Phosphatase 91 U/L (40-110); Anion Gap 16 mmol/L (10-20); BUN (Urea Nitrogen) 16 mg/dL (9.8-20.1); Bilirubin, Total 0.7 mg/dL (0.2-1.2); CK (CPK) 87 U/L (29-168); Calc. Creatinine Clearance 0 mL/min (70-130); Calcium 8.2 mg/dL (7.8-10.44); Carbon Dioxide 25 mmol/L (23-31); Chloride 99 mmol/L (98-107); Estimated GFR-MDRD 64; Globulin 3.8 g/dL (2.4-3.5); Glucose 144 mg/dL (80-115); Potassium 3.9 mmol/L (3.5-5.1); Protein, Total 7.2 g/dL (6.0-8.3); Sodium 136 mmol/L (136-145)
[2019-05-01] MEDS ORDERED: Cefepime 2 GM VIAL ONE (00:44)
[2019-05-01] MEDS ORDERED: traMADol HCl 50 MG TAB ONE (00:55)
[2019-05-01] MEDS ORDERED: Sodium Chloride 0.9% 1,000 ML IV SCH (01:57)
[2019-05-01] MEDS ORDERED: Ondansetron PF 4 MG/2 ML Vial IVP PRN ×2 (01:57→04:45)
[2019-05-01] MEDS ORDERED: Ondansetron ODT 4 MG TAB SL PRN (01:57)
[2019-05-01 02:14] VITALS: BMI 78.0
[2019-05-01] MEDS ORDERED: Ondansetron ODT 4 MG TAB PO PRN (04:45)
[2019-05-01] MEDS ORDERED: hydrALAZINE 20 MG/ML VIAL SLOW IVP PRN (04:45)
[2019-05-01] MEDS ORDERED: Benzonatate 100 MG CAP PO PRN (04:45)
[2019-05-01] MEDS ORDERED: Senokot 8.6 MG TAB PO PRN (04:45)
[2019-05-01] MEDS ORDERED: Diabetic Tussin 200 MG/10 ML UDCUP PO PRN (04:45)
[2019-05-01 06:10] LABS: Band 1 % (5-11); Eosinophils 4 % (0-10); Hypochromia SLIGHT = 6-15 cells (100X) (0-5/hpf); Lymphocytes 12 % (21-51); MDiff Complete? YES; Mean Corpuscular HGB CONC 31.9 g/dL (32.0-36.0); Mean Corpuscular Hemoglobin 28.8 pg (27.0-31.0); Mean Corpuscular Volume 90.4 fL (78.0-98.0); Monocytes 2 % (0-10); Neutrophil 81 % (42-75); Platelet Count 200 thou/uL (130-400); Platelet Morphology Comment Appears Adequate; RBC Distribution Width 14.4 % (11.5-14.5); Red Blood Cell (RBC) Count 3.82 mill/uL (4.20-5.40); White Blood Cell (WBC) Count 11.3 thou/uL (4.8-10.8)
[2019-05-01 06:33] LABS: Bilirubin Negative (Negative); Blood, Urine Negative (Negative); Clarity Clear (Clear); Glucose, Urine (Dipstick) Normal (Negative); Leukocyte 500 Leu/uL (Negative); Nitrite 1+ (Negative); Protein, Urine (Dipstick) Negative (Neg-Trace); Squamous Epithelial None Seen HPF (0-3); Urobilinogen Normal mg/dL (Less than 2); WBC/HPF Greater than 50 HPF (0-3)
[2019-05-01 06:34] LABS: Bacteria/HPF 1+ HPF (None Seen)
--- NOTE | 2019-05-01 08:45 | HP ---
PRIMARY CARE PROVIDER: Roman Melendez MD CHIEF COMPLAINT: Shortness of breath and cough. HISTORY OF PRESENT ILLNESS: This is a 63-year-old female, who presented to [facility] Emergency Department in transfer from [facility], where the patient is a current resident x5 years. The patient admits to increasing cough and shortness of breath, mainly nonproductive in the context of chronic tracheostomy. The patient states she has noted several residence with cough, but states she has had one prior episode of pneumonia as far as she is aware of. The patient believes her immunizations are up to date including Pneumovax and influenza vaccines. The patient denied any documented fever, but states she has had a nonproductive cough with shortness of breath as stated previously. The patient states she uses nocturnal oxygen with a CPAP machine, but typically on no oxygen supplementation during the daytime. The patient denied any hemoptysis, change to bowel habits, but does admit to some mild dysuria. The patient continues to use DuoNeb 4 times daily. In the emergency room, the patient underwent general evaluation with chest imaging showing evidence of possible right lower lobe infiltrate. The patient received IV cefepime and Levaquin in addition to tramadol, DuoNeb, and intravenous normal saline x500 mL. PAST MEDICAL HISTORY: 1. Chronic hypoxic respiratory failure with tracheostomy. 2. Hyperlipidemia. 3. Chronic lymphedema. 4. History of CVA in 2001. 5. Morbid obesity. 6. Sleep apnea with current tracheostomy since 2011. 7. Restless legs syndrome. 8. Anxiety/depression. 9. Gastroesophageal reflux disease. 10. Candidal intertrigo. 11. Chronic neuropathic pain. PAST SURGICAL HISTORY: 1. Status post cholecystectomy. 2. Status post hernia repair. 3. Status post hysterectomy. 4. Status post left ankle repair. 5. Status post tracheostomy placement in 2011. CURRENT MEDICATIONS: 1. Coreg 3.125 mg p.o. b.i.d. 2. Feosol 325 mg p.o. daily. 3. Lasix 40 mg p.o. b.i.d. 4. Mucinex 600 mg 2 tablets p.o. q.12 hours p.r.n. 5. Nystatin powder one application topically b.i.d. 6. K-Dur 20 mEq p.o. t.i.d. 7. Senna 8.6 mg p.o. b.i.d. 8. Zocor 10 mg p.o. at bedtime. 9. Tramadol 50 mg p.o. q.8 hours p.r.n. 10. DuoNeb 3 mL nebulized q.i.d. 11. Zaroxolyn 5 mg p.o. Tuesday, Tuesday, Tuesday, and Fridays only. ALLERGIES: ACETAMINOPHEN, ALPRAZOLAM, HYDROCODONE, IODINE, AND LATEX. FAMILY HISTORY: Positive for diabetes mellitus and coronary artery disease in her mother. SOCIAL HISTORY: The patient resides at [facility] x5 years. Short-distance ambulation with rolling walker with standby assistance. Wheelchair for long-distance mobilization. No alcohol, tobacco, or illicit drug use. REVIEW OF SYSTEMS: CONSTITUTIONAL: Negative for weight loss or gain, ability to conduct usual activities. SKIN: Negative for rash, itching. EYES: Negative for double vision, pain. ENT/MOUTH: Negative for nose bleeding, neck stiffness, pain, tenderness. CARDIOVASCULAR: Negative for palpitations, dyspnea on exertion, orthopnea. RESPIRATORY: Negative for shortness of breath, wheezing, cough, hemoptysis, fever or night sweats. GASTROINTESTINAL: Negative for poor appetite, abdominal pain, heartburn, nausea, vomiting, constipation, or diarrhea. GENITOURINARY: Negative for urgency, frequency, dysuria, nocturia. MUSCULOSKELETAL: Negative for pain, swelling. NEUROLOGIC/PSYCHIATRIC: Negative for anxiety, depression. ALLERGY/IMMUNOLOGIC: Negative for skin rash, bleeding tendency. Otherwise negative except as stated per HPI. PHYSICAL EXAMINATION: VITAL SIGNS: On admission, blood pressure 100/74, pulse 96, respiratory rate 20, temperature 100.6 degrees Fahrenheit, and O2 saturation 92% on room air. GENERAL APPEARANCE: This is a 63-year-old female, alert and oriented x3, pleasant, smiling, in no acute distress. HEENT: Pupils are equal, round, and reactive to light and accommodation. Extraocular muscles are intact. No scleral icterus. No conjunctival injection. Nares patent. OP is clear. Teeth in good repair. NECK: Supple. No cervical adenopathy. No thyromegaly. No carotid bruits. No JVD appreciated. Cervical spine with full active and passive range of motion. No meningeal signs noted. Tracheostomy in place. CHEST: Diminished breath sounds in the bases bilaterally. Occasional coarse breath sound. CARDIOVASCULAR: S1 and S2 without noted murmur, rub, or gallop. Heart sounds are distant. ABDOMEN: Obese, soft, nontender, and nondistended. Bowel sounds are positive in all 4 quadrants. Landmarks are difficult to palpate due to the patient's body habitus. EXTREMITIES: Warm and dry with fair turgor. Positive bilateral lower extremity edema noted. Pulses are palpable distally at the dorsalis pedis, posterior tibial, and popliteal arteries bilaterally. Capillary refill less than 2 seconds. NEUROLOGIC: Cranial nerves II through XII are grossly intact. No focal or lateralizing signs appreciated. PERTINENT LABORATORY AND X-RAY FINDINGS: Sodium 136, potassium 3.9, chloride 99, CO2 of 25, BUN 16, creatinine 0.89, estimated GFR 64, glucose 144, lactic acid level 1.9, and calcium 8.2. LFTs within normal limits. BNP 43. Albumin 3.4. CBC showed a white blood cell count of 13.9, hemoglobin 12.5, hematocrit 39, and platelet count 209 with 93% neutrophils. Urinalysis dated 05/01/2019, positive nitrite and leukocyte esterase with 4 to 6 rbc's per high-power field and greater than 50 to [id number]-count wbc's per high-power field. Influenza A and B antigen dated 05/01/2019, negative. Portable chest x-ray dated 04/30/2019, showed right lower lobe infiltrate. EKG dated 05/01/2019, by my interpretation shows sinus mechanism with heart rates in the 90s. Normal R-wave progression noted in the precordial leads. Normal axis. No acute ST-T wave changes appreciated. ASSESSMENT AND PLAN: 1. Sepsis secondary to bacterial pneumonia. The patient will be admitted to the medical floor. We will continue broad-spectrum IV antibiotic coverage with cefepime 2 g IV q.12 hours with additional Levaquin 750 mg IV daily. Await final blood culture results. Continue DuoNeb q.4 hours. 2. Chronic hypoxic respiratory failure with tracheostomy. We will continue general tracheostomy care. Oxygen nocturnally and p.r.n. Consult Pulmonology Service in the a.m. for any further recommendations and management. 3. Urinary tract infection, suspected. Await final urine culture results. Continue cefepime 2 g IV q.12 hours. 4. Morbid obesity. Consider dietitian counseling and evaluation. Heart healthy diet. 5. Prophylaxis. SCDs while in bed. Pepcid 20 mg p.o. b.i.d. PT evaluation for functional assessment. 6. Code status is full. Surrogate medical decision maker is the patient's daughter. Job ID: [id number]
[2019-05-01] MEDS ORDERED: Prevnar 13-Val Conj/PF 0.5 ML SYRINGE IM ONE (09:00)
[2019-05-01] MEDS: Potassium Chloride 20 MEQ TAB PO SCH ×3 (09:22→17:55)
[2019-05-01] MEDS: Ferrous Sulfate 325 MG TAB PO SCH (09:22)
[2019-05-01] MEDS: Metolazone 5 MG TAB PO SCH (09:23)
[2019-05-01] MEDS: Carvedilol 3.125 MG TAB PO SCH ×2 (09:23→20:39)
[2019-05-01] MEDS: Furosemide 40 MG TAB PO SCH ×2 (09:23→14:59)
[2019-05-01] MEDS: Nitrofurantoin Macrocrystal 50 MG CAP PO SCH ×4 (09:23→20:48)
[2019-05-01] MEDS: guaiFENesin ER 600 MG TAB PO SCH ×2 (09:23→20:39)
[2019-05-01] MEDS: Pantoprazole 40 MG GRANULES PACKET PO SCH ×2 (09:24→20:43)
[2019-05-01] MEDS: Nystatin Powder 15 GM BOT TOP SCH ×2 (09:25→20:46)
[2019-05-01] MEDS: Famotidine 20 MG TAB PO SCH ×2 (09:26→20:39)
[2019-05-01] MEDS: traMADol HCl 50 MG TAB PO PRN ×2 (09:34→17:56)
[2019-05-01] MEDS ORDERED: predniSONE 20 MG TAB PO SCH (11:00)
[2019-05-01] MEDS: Cefepime 2 GM in Sodium Chloride 0.9% 100 ML IVPB SCH (11:20)
--- NOTE | 2019-05-01 12:38 | CON ---
DATE OF CONSULTATION: HISTORY OF PRESENT ILLNESS: Wilda Faith is a 63-year-old morbidly obese female, respiratory failure, permanent trach #6 Bivona the last [address] Downey in our office. She presented with increasing shortness of breath, cough, chills and sweats and apparently fever, though the sputum that she is coughing up appears to be relatively clear. She says she has gained weight. She is from [facility]. She has severe limitation to activities. She can barely walk on a good day, 50 feet without getting markedly dyspneic. PAST MEDICAL HISTORY: Respiratory failure, permanent trach, COPD, asthma, diabetes, morbid obesity, chronic stasis, hypertension previous CVA, sleep apnea, restless legs, depression, reflux. PAST SURGICAL HISTORY: Cholecystectomy, hysterectomy, left ankle, trach since 2011. SOCIAL HISTORY: long term. No alcohol and tobacco abuse. ALLERGIES: MULTIPLE, XANAX, HYDROCODONE, IODINE, LATEX, PENICILLIN, ROPINIROLE. MEDICATIONS: Home medicines 1. Tramadol. 2. Guaifenesin. 3. Zocor. 4. Senna. 5. Potassium. 6. Protonix. 7. Nystatin. 8. Macrodantin. 9. Zaroxolyn. 10. DuoNeb. 11. Lasix. She is now started on Maxipime, Lasix, DuoNeb, Levaquin. She says she is feeling better. REVIEW OF SYSTEMS: 10-point negative. PHYSICAL EXAMINATION: GENERAL: On examination, morbidly obese female. #[address] Saturations are 93% on room air, pulse 101, temperature 98, blood pressure . CHEST: Decreased breath sounds without any wheezing. CARDIAC: Normal S1, S2. No gallops. ABDOMEN: No masses. LABORATORY DATA: Lytes are normal. White count 11,000, H and H 11 and 34, platelet count is normal. Chest x-ray in the ER shows questionable right-sided infiltrate. IMPRESSION: 1. Sleep apnea, permanent trach, morbid obesity. 2. Febrile illness, possibly pneumonia, severe deconditioning, stasis, edema. I agree with antibiotics, start p.o. prednisone for a few days. We will follow. Consultation note, 70 minutes, with 50% direct patient care. Job ID: [id number]
--- NOTE | 2019-05-01 14:18 | PDOC.HOSPP ---
- Subjective Encounter Date: 05/01/19 Encounter Time: 14:17 Subjective: minimal SOB - Objective Vital Signs & Weight: Vital Signs (12 hours) Temp Pulse Resp BP Pulse Ox 05/01/19 12:22 98.3 F 75 20 124/70 93 L 05/01/19 10:25 101 H 18 93 L 05/01/19 08:00 95 05/01/19 07:28 98.5 F 84 22 H 111/69 95 05/01/19 07:01 92 18 97 05/01/19 04:45 98.2 F 85 20 105/61 95 Weight Admit Weight 413 lb 5.868 oz Weight 413 lb 5.868 oz I&O: 04/30/19 05/01/19 05/02/19 06:59 06:59 06:59 Intake Total 300 300 Output Total 600 Balance -300 300 Result Diagrams: 05/01/19 05:31 04/30/19 22:45 Additional Labs: Accuchecks 05/01/19 12:27 POC Glucose 122 H Hospitalist ROS - Medication Medications: Active Medications Generic Name Dose Route Start Last Admin Trade Name Freq PRN Reason Stop Dose Admin Albuterol/Ipratropium 3 ml 05/01/19 07:00 05/01/19 10:25 Duoneb NEB 3 ml [id number] ORALIA Administration Carvedilol 3.125 mg 05/01/19 09:00 05/01/19 09:23 Coreg PO 3.125 mg BID ORALIA Administration Famotidine 20 mg 05/01/19 09:00 05/01/19 09:26 Pepcid PO Not Given BID ORALIA Ferrous Sulfate 325 mg 05/01/19 08:00 05/01/19 09:22 Feosol PO 325 mg QAM-WM ORALIA Administration Furosemide 40 mg 05/01/19 09:00 05/01/19 09:23 Lasix PO 40 mg 0900,1400 ORALIA Administration Guaifenesin 1,200 mg 05/01/19 09:00 05/01/19 09:23 Mucinex PO 1,200 mg Q12HR ORALIA Administration Cefepime HCl 2 gm/ Sodium 100 mls @ 200 mls/hr 05/01/19 13:00 05/01/19 11:20 Chloride IVPB 100 mls 0100,1300 ORALIA Administration Metolazone 5 mg 05/01/19 08:30 05/01/19 09:23 Zaroxolyn PO 5 mg [id number] ORALIA Administration Nitrofurantoin Macrocrystals 50 mg 05/01/19 09:00 05/01/19 09:23 Macrodantin PO 50 mg QID ORALIA Administration Nystatin 0 gm 05/01/19 09:00 05/01/19 09:25 Mycostatin Powder TOP 1 applic BID ORALIA Administration Pantoprazole Sodium 40 mg 05/01/19 09:00 05/01/19 09:24 Protonix PO 40 mg BID ORALIA Administration Potassium Chloride 20 meq 05/01/19 08:00 05/01/19 11:20 K-Dur PO 20 meq TID-WM ORALIA Administration Sodium Chloride 10 ml 05/01/19 09:00 05/01/19 09:25 Flush - Normal Saline IVF 10 ml Q12HR ORALIA Administration Tramadol HCl 50 mg 05/01/19 04:45 05/01/19 09:34 Ultram PO 50 mg Q8H PRN Administration Pain - Exam General - other findings: morbidly obese ENT - other findings: tracheostomy Heart: RRR, no murmur Respiratory - other findings: distant BS, non-focal exam Gastrointestinal: soft, normal bowel sounds Extremities - other findings: lymphedema Hosp A/P (1) PNA (pneumonia) Code(s): J18.9 - PNEUMONIA, UNSPECIFIED ORGANISM Status: Acute Qualifiers: Pneumonia type: due to Pneumococcus Laterality: right Lung location: lower lobe of lung Qualified Code(s): J13 - Pneumonia due to Streptococcus pneumoniae (2) Chronic respiratory failure with hypoxia Code(s): J96.11 - CHRONIC RESPIRATORY FAILURE WITH HYPOXIA Status: Chronic (3) CHUCHO (obstructive sleep apnea) Code(s): G47.33 - OBSTRUCTIVE SLEEP APNEA (ADULT) (PEDIATRIC) Status: Chronic (4) Obesities, morbid Code(s): E66.01 - MORBID (SEVERE) OBESITY DUE TO EXCESS CALORIES Status: Chronic - Plan blood C&S pending cont.antibx, iv cont O2
[2019-05-01] MEDS: Simvastatin 5 MG TAB PO SCH (20:40)
[2019-05-02] MEDS: Cefepime 2 GM in Sodium Chloride 0.9% 100 ML IVPB SCH ×2 (01:20→11:57)
[2019-05-02 06:20] LABS: Band 1 % (5-11); Eosinophils 1 % (0-10); Hemoglobin 11.4 g/dL (12.0-16.0); Lymphocytes 22 % (21-51); MDiff Complete? YES; Mean Corpuscular HGB CONC 33.1 g/dL (32.0-36.0); Mean Corpuscular Hemoglobin 29.7 pg (27.0-31.0); Mean Corpuscular Volume 89.8 fL (78.0-98.0); Monocytes 9 % (0-10); Neutrophil 66 % (42-75); Platelet Count 201 thou/uL (130-400); Platelet Morphology Comment Appears Adequate; RBC Distribution Width 14.2 % (11.5-14.5); Red Blood Cell (RBC) Count 3.85 mill/uL (4.20-5.40); White Blood Cell (WBC) Count 9.7 thou/uL (4.8-10.8)
[2019-05-02 06:32] LABS: Anion Gap 13 mmol/L (10-20); BUN (Urea Nitrogen) 19 mg/dL (9.8-20.1); Calc. Creatinine Clearance 177 mL/min (70-130); Calcium 8.7 mg/dL (7.8-10.44); Carbon Dioxide 31 mmol/L (23-31); Chloride 97 mmol/L (98-107); Estimated GFR-MDRD 60; Glucose 99 mg/dL (80-115); Sodium 138 mmol/L (136-145)
[2019-05-02] MEDS: guaiFENesin ER 600 MG TAB PO SCH ×2 (08:00→21:05)
[2019-05-02] MEDS: Nitrofurantoin Macrocrystal 50 MG CAP PO SCH ×4 (08:00→21:05)
[2019-05-02] MEDS: Potassium Chloride 20 MEQ TAB PO SCH ×3 (08:00→16:22)
[2019-05-02] MEDS: Ferrous Sulfate 325 MG TAB PO SCH (08:00)
[2019-05-02] MEDS: Metolazone 5 MG TAB PO SCH (08:00)
[2019-05-02] MEDS: Pantoprazole 40 MG GRANULES PACKET PO SCH ×2 (08:00→21:05)
[2019-05-02] MEDS ORDERED: predniSONE 20 MG TAB PO SCH (08:00)
[2019-05-02] MEDS: Furosemide 40 MG TAB PO SCH ×2 (08:00→14:49)
[2019-05-02] MEDS: Famotidine 20 MG TAB PO SCH ×2 (08:01→21:05)
[2019-05-02] MEDS: predniSONE 20 MG TAB PO SCH (08:01)
[2019-05-02] MEDS: Carvedilol 3.125 MG TAB PO SCH ×2 (08:01→21:05)
[2019-05-02] MEDS: Nystatin Powder 15 GM BOT TOP SCH ×2 (08:01→21:06)
--- NOTE | 2019-05-02 09:58 | PDOC.HOSPP ---
- Subjective Encounter Date: 05/02/19 Encounter Time: 09:55 Subjective: still has cough, less sob - Objective Vital Signs & Weight: Vital Signs (12 hours) Temp Pulse Resp BP Pulse Ox 05/02/19 08:00 97 05/02/19 07:54 97.9 F 60 22 H 127/72 97 05/02/19 07:14 95 05/02/19 07:03 64 20 95 05/02/19 04:31 97.9 F 74 20 124/75 93 L 05/02/19 00:24 98.2 F 76 20 118/68 96 Weight Admit Weight 413 lb 5.868 oz Weight 413 lb 5.868 oz I&O: 05/01/19 05/02/19 05/03/19 06:59 06:59 06:59 Intake Total 300 600 240 Output Total 600 Balance -300 600 240 Result Diagrams: 05/02/19 05:32 05/02/19 05:32 Additional Labs: Accuchecks 05/01/19 12:27 POC Glucose 122 H Hospitalist ROS - Medication Medications: Active Medications Generic Name Dose Route Start Last Admin Trade Name Freq PRN Reason Stop Dose Admin Albuterol/Ipratropium 3 ml 05/01/19 07:00 05/02/19 07:03 Duoneb NEB 3 ml [id number] ORALIA Administration Carvedilol 3.125 mg 05/01/19 09:00 05/02/19 08:01 Coreg PO 3.125 mg BID ORALIA Administration Famotidine 20 mg 05/01/19 09:00 05/02/19 08:01 Pepcid PO 20 mg BID ORALIA Administration Ferrous Sulfate 325 mg 05/01/19 08:00 05/02/19 08:00 Feosol PO 325 mg QAM-WM ORALIA Administration Furosemide 40 mg 05/01/19 09:00 05/02/19 08:00 Lasix PO 40 mg 0900,1400 ORALIA Administration Guaifenesin 1,200 mg 05/01/19 09:00 05/02/19 08:00 Mucinex PO 1,200 mg Q12HR ORALIA Administration Cefepime HCl 2 gm/ Sodium 100 mls @ 200 mls/hr 05/01/19 13:00 05/02/19 01:20 Chloride IVPB 100 mls 0100,1300 ORALIA Administration Levofloxacin 750 mg/ Device 150 mls @ 100 mls/hr 05/01/19 23:00 05/01/19 23: 44 IVPB 150 mls Q24HR@2300 ORALIA Administration Metolazone 5 mg 05/01/19 08:30 05/02/19 08:00 Zaroxolyn PO 5 mg [id number] ORALIA Administration Nitrofurantoin Macrocrystals 50 mg 05/01/19 09:00 05/02/19 08:00 Macrodantin PO 50 mg QID ORALIA Administration Nystatin 0 gm 05/01/19 09:00 05/02/19 08:01 Mycostatin Powder TOP 1 applic BID ORALIA Administration Pantoprazole Sodium 40 mg 05/01/19 09:00 05/02/19 08:00 Protonix PO 40 mg BID ORALIA Administration Potassium Chloride 20 meq 05/01/19 08:00 05/02/19 08:00 K-Dur PO 20 meq TID-WM ORALIA Administration Prednisone 20 mg 05/02/19 08:00 05/02/19 08:01 Prednisone PO 20 mg QAM-WM ORALIA Administration Simvastatin 10 mg 05/01/19 21:00 05/01/19 20:40 Zocor PO 10 mg HS ORALIA Administration Sodium Chloride 10 ml 05/01/19 09:00 05/02/19 08:01 Flush - Normal Saline IVF 10 ml Q12HR ORALIA Administration Tramadol HCl 50 mg 05/01/19 04:45 05/01/19 17:56 Ultram PO 50 mg Q8H PRN Administration Pain - Exam General Appearance: NAD ENT - other findings: tracheostomy Heart: RRR, no murmur Respiratory: CTAB, no wheezes Gastrointestinal: soft, normal bowel sounds Extremities - other findings: lymphedema Hosp A/P (1) PNA (pneumonia) Code(s): J18.9 - PNEUMONIA, UNSPECIFIED ORGANISM Status: Acute Qualifiers: Pneumonia type: due to Pneumococcus Laterality: right Lung location: lower lobe of lung Qualified Code(s): J13 - Pneumonia due to Streptococcus pneumoniae (2) Chronic respiratory failure with hypoxia Code(s): J96.11 - CHRONIC RESPIRATORY FAILURE WITH HYPOXIA Status: Chronic (3) CHUCHO (obstructive sleep apnea) Code(s): G47.33 - OBSTRUCTIVE SLEEP APNEA (ADULT) (PEDIATRIC) Status: Chronic (4) Obesities, morbid Code(s): E66.01 - MORBID (SEVERE) OBESITY DUE TO EXCESS CALORIES Status: Chronic - Plan blood C&S 1/2 coag neg staph- considered contaminant cont IV antibx 72 hrs, then home on po antibx if doing well
--- NOTE | 2019-05-02 10:16 | PRG ---
DATE OF SERVICE: 05/02/2019 SUBJECTIVE: Wilda Faith is a morbidly obese patient with a trach. Her sleep apnea is better. OBJECTIVE: VITAL SIGNS: Saturations are 97% on trach collar, temperature 97, pulse 60, respiratory rate 22, blood pressure 122/72. CHEST: No wheezing or crackles. CARDIAC: Normal S1 and S2. No gallops. ABDOMEN: No masses. LABORATORY DATA: Blood culture negative. White count 9,000, no left shift. X-ray shows a questionable right-sided pneumonia. ASSESSMENT AND PLAN: Sleep apnea, diastolic dysfunction, morbid obesity, chronic obstructive pulmonary disease, questionable pneumonia. She is better. I will switch over to oral antibiotics. Disposition is to home in the next several days if she remains afebrile. Job ID: [id number]
[2019-05-02] MEDS: traMADol HCl 50 MG TAB PO PRN ×2 (13:05→21:10)
[2019-05-02] MEDS: Simvastatin 5 MG TAB PO SCH (21:05)
[2019-05-03] MEDS: Cefepime 2 GM in Sodium Chloride 0.9% 100 ML IVPB SCH (01:16)
[2019-05-03] MEDS: traMADol HCl 50 MG TAB PO PRN ×3 (04:29→20:51)
[2019-05-03] MEDS: guaiFENesin ER 600 MG TAB PO SCH ×2 (08:21→20:45)
[2019-05-03] MEDS: Metolazone 5 MG TAB PO SCH (08:21)
[2019-05-03] MEDS: Famotidine 20 MG TAB PO SCH ×2 (08:22→20:46)
[2019-05-03] MEDS: Potassium Chloride 20 MEQ TAB PO SCH ×3 (08:22→16:30)
[2019-05-03] MEDS: Furosemide 40 MG TAB PO SCH ×2 (08:22→14:42)
[2019-05-03] MEDS: Nitrofurantoin Macrocrystal 50 MG CAP PO SCH ×4 (08:22→20:46)
[2019-05-03] MEDS: Carvedilol 3.125 MG TAB PO SCH ×2 (08:22→20:46)
[2019-05-03] MEDS: Pantoprazole 40 MG GRANULES PACKET PO SCH ×2 (08:22→20:46)
[2019-05-03] MEDS: Ferrous Sulfate 325 MG TAB PO SCH (08:22)
[2019-05-03] MEDS: Nystatin Powder 15 GM BOT TOP SCH ×2 (08:23→20:49)
[2019-05-03] MEDS: predniSONE 20 MG TAB PO SCH (08:29)
--- NOTE | 2019-05-03 09:42 | PRG ---
DATE OF SERVICE: 05/03/2019 SUBJECTIVE: This morning, she is better, less short of breath. OBJECTIVE: VITAL SIGNS: Temperature 98.6, pulse 89, and blood pressure 130/85. CHEST: Mild crackles. CARDIAC: Normal S1 and S2. No gallops. ABDOMEN: No masses. LABORATORY DATA: White count 14,000, H and H 7 and 24, and platelet count is normal. Lytes are normal. ASSESSMENT AND PLAN: Bilateral bronchopneumonia probably atypical, switch over to oral antibiotics. PT and supportive care. Hopefully, home in the next 24 to 48 hours, if all cultures are negative. Job ID: [id number]
--- NOTE | 2019-05-03 10:28 | PDOC.HOSPP ---
- Subjective Encounter Date: 05/03/19 Encounter Time: 10:27 Subjective: nocturnal leg cramps is only complaint - Objective Vital Signs & Weight: Vital Signs (12 hours) Temp Pulse Resp BP BP Pulse Ox 05/03/19 10:05 56 L 18 94 L 05/03/19 08:00 98.4 F 56 L 22 H 117/67 94 L 05/03/19 07:22 97 05/03/19 07:20 61 20 98 05/03/19 05:00 98.1 F 81 16 164/92 H 92 L 05/03/19 00:43 98.4 F 61 16 128/75 96 Weight Admit Weight 413 lb 5.868 oz Weight 413 lb 5.868 oz I&O: 05/02/19 05/03/19 05/04/19 06:59 06:59 06:59 Intake Total 600 840 240 Balance 600 840 240 Result Diagrams: 05/02/19 05:32 05/02/19 05:32 Hospitalist ROS - Medication Medications: Active Medications Generic Name Dose Route Start Last Admin Trade Name Julio PRN Reason Stop Dose Admin Albuterol/Ipratropium 3 ml 05/01/19 07:00 05/03/19 10:05 Duoneb NEB 3 ml [id number] ORALIA Administration Carvedilol 3.125 mg 05/01/19 09:00 05/03/19 08:22 Coreg PO 3.125 mg BID ORALIA Administration Famotidine 20 mg 05/01/19 09:00 05/03/19 08:22 Pepcid PO 20 mg BID ORALIA Administration Ferrous Sulfate 325 mg 05/01/19 08:00 05/03/19 08:22 Feosol PO 325 mg QAM-WM ORALIA Administration Furosemide 40 mg 05/01/19 09:00 05/03/19 08:22 Lasix PO 40 mg 0900,1400 ORALIA Administration Guaifenesin 1,200 mg 05/01/19 09:00 05/03/19 08:21 Mucinex PO 1,200 mg Q12HR ORALIA Administration Metolazone 5 mg 05/01/19 08:30 05/03/19 08:21 Zaroxolyn PO 5 mg [id number] ORALIA Administration Nitrofurantoin Macrocrystals 50 mg 05/01/19 09:00 05/03/19 08:22 Macrodantin PO 50 mg QID ORALIA Administration Nystatin 0 gm 05/01/19 09:00 05/03/19 08:23 Mycostatin Powder TOP 1 applic BID ORALIA Administration Pantoprazole Sodium 40 mg 05/01/19 09:00 05/03/19 08:22 Protonix PO 40 mg BID ORALIA Administration Potassium Chloride 20 meq 05/01/19 08:00 05/03/19 08:22 K-Dur PO 20 meq TID-WM ORALIA Administration Prednisone 20 mg 05/02/19 08:00 05/03/19 08:29 Prednisone PO 20 mg QAM-WM ORALIA Administration Simvastatin 10 mg 05/01/19 21:00 05/02/19 21:05 Zocor PO 10 mg HS ORALIA Administration Sodium Chloride 10 ml 05/01/19 09:00 05/03/19 08:29 Flush - Normal Saline IVF 10 ml Q12HR ORALIA Administration Tramadol HCl 50 mg 05/01/19 04:45 05/03/19 04:29 Ultram PO 50 mg Q8H PRN Administration Pain - Exam Neck: no JVD Heart: RRR Respiratory - other findings: scant post rales, OW clear BS Gastrointestinal: soft, non-tender, normal bowel sounds Extremities - other findings: lymphedema Hosp A/P (1) PNA (pneumonia) Code(s): J18.9 - PNEUMONIA, UNSPECIFIED ORGANISM Status: Acute Qualifiers: Pneumonia type: due to Pneumococcus Laterality: right Lung location: lower lobe of lung Qualified Code(s): J13 - Pneumonia due to Streptococcus pneumoniae (2) Chronic respiratory failure with hypoxia Code(s): J96.11 - CHRONIC RESPIRATORY FAILURE WITH HYPOXIA Status: Chronic (3) CHUCHO (obstructive sleep apnea) Code(s): G47.33 - OBSTRUCTIVE SLEEP APNEA (ADULT) (PEDIATRIC) Status: Chronic (4) Obesities, morbid Code(s): E66.01 - MORBID (SEVERE) OBESITY DUE TO EXCESS CALORIES Status: Chronic - Plan blood C&S 1/2 coag neg staph- considered contaminant cont IV antibx 72 hrs, then home on po antibx if doing well
--- NOTE | 2019-05-03 11:15 | RAD ---
EXAM: Chest one view: HISTORY: Pneumonia COMPARISON: 04/30/2019 FINDINGS: Less inspiration. Tracheostomy tube in place. Stable appearing vascular congestion. Heart size: Stable cardiomegaly. Lungs: Clear of acute process. No evidence for confluent pneumonia, pleural effusion, acute edema, or pneumothorax, or other signifi cant acute process. IMPRESSION: Stable cardiomegaly and vascular congestion with less inspiratory effort. No significant new process.
[2019-05-03] MEDS: Simvastatin 5 MG TAB PO SCH (20:46)
[2019-05-04] MEDS: traMADol HCl 50 MG TAB PO PRN (05:47)
--- NOTE | 2019-05-04 09:06 | PRG ---
DATE OF SERVICE: 05/04/2019 SUBJECTIVE: Wilda Faith doing better, less cough, less shortness of breath. OBJECTIVE: VITAL SIGNS: Saturations are 97% on trach collar, pulse 54, temperature 97, blood pressure 120/66. CHEST: No wheezing or crackles. CARDIAC: Normal S1 and S2. No gallops. ABDOMEN: No masses. ASSESSMENT: Morbid obesity, trach, stasis edema, severe deconditioning, questionable right-sided pneumonia. PLAN: She is much improved. She can be discharged back to the long term. She can follow up with Dr. Downey at a later time for trach related issues. Job ID: [id number]
[2019-05-04] MEDS: Metolazone 5 MG TAB PO SCH (09:40)
[2019-05-04] MEDS: Potassium Chloride 20 MEQ TAB PO SCH ×2 (09:40→11:49)
[2019-05-04] MEDS: Nitrofurantoin Macrocrystal 50 MG CAP PO SCH ×2 (09:40→11:49)
[2019-05-04] MEDS: Furosemide 40 MG TAB PO SCH (09:41)
[2019-05-04] MEDS: Ferrous Sulfate 325 MG TAB PO SCH (09:41)
[2019-05-04] MEDS: Famotidine 20 MG TAB PO SCH (09:41)
[2019-05-04] MEDS: Carvedilol 3.125 MG TAB PO SCH (09:42)
[2019-05-04] MEDS: guaiFENesin ER 600 MG TAB PO SCH (09:42)
[2019-05-04] MEDS: predniSONE 20 MG TAB PO SCH (09:42)
[2019-05-04] MEDS: Nystatin Powder 15 GM BOT TOP SCH (09:43)
[2019-05-04] MEDS: Pantoprazole 40 MG GRANULES PACKET PO SCH (09:44)
[2019-05-04 12:30] VITALS: BP 115/69; TEMP 97.5
--- NOTE | 2019-05-05 03:05 | DIS ---
DATE OF ADMISSION: 05/01/2019 DATE OF DISCHARGE: 05/04/2019 REASON FOR HOSPITALIZATION: Shortness of breath. SIGNIFICANT FINDINGS: The patient diagnosed with sepsis with pulmonary source. The patient was placed on appropriate medical therapy per Pulmonology and Internal Medicine physician-please see full consultation and history and physical in addition to progress notes for details. PROCEDURES PERFORMED AND TREATMENTS RENDERED: The patient was admitted to medical unit for close management. The patient was seen and evaluated by Pulmonology-please see full consultation and progress notes for details. The patient initially placed on broad-spectrum antibiotic coverage and IV steroids. The patient was later deescalated on antibiotics to an oral regimen and also the patient was transitioned from IV steroids to oral steroids. The patient was recommended safe for discharge by Pulmonology with close followup in the outpatient setting with Pulmonology, Shayan Feliciano. CONDITION ON DISCHARGE: Stable. SPECIFIC INSTRUCTIONS FOR THE PATIENT/FAMILY: 1. The patient is recommended to complete a full course of oral antibiotics for resolution of pulmonary infection. 2. The patient is recommended to complete oral steroids with a tapering dose. 3. The patient is recommended to follow up with Pulmonology in the next 1 to 2 weeks. 4. The patient is recommended to have all other medications adjusted appropriately by admitting physician at [facility], where she is a chronic resident. 5. The patient is recommended to return to acute care hospital immediately if signs or symptoms return, worsen, or any other new symptoms occur. DISCHARGE MEDICATIONS: 1. Ferrous sulfate 325 one tablet p.o. daily. 2. Mucinex 2 tabs q.12 hours. 3. Tramadol 1 tablet p.o. q.8 hours p.r.n. pain. 4. Simvastatin 10 mg one tablet p.o. at bedtime. 5. Senna 8.6 mg one tablet p.o. b.i.d. p.r.n. constipation. 6. Potassium chloride 20 mEq one tablet p.o. t.i.d. 7. Protonix 40 mg one tablet p.o. b.i.d. 8. Nystatin powder apply topically b.i.d. 9. Metolazone 5 mg p.o. as directed for edema. 10. DuoNeb q.3 hours p.r.n. shortness of breath. 11. Furosemide 40 mg one tablet p.o. b.i.d. 12. Carvedilol 3.125 mg one tablet p.o. b.i.d. 13. Prednisone 20 mg one tablet p.o. daily, with tapering dose. 14. Levofloxacin 500 mg one tablet p.o. daily for an additional 5 days. 15. Tessalon Perles 100 mg one tablet p.o. q.6 hours p.r.n. cough. HOSPITAL COURSE: Ms. Faith is a very pleasant 63-year-old female, who presents to [facility] on 05/01/2019 with worsening shortness of breath. The patient was diagnosed with sepsis secondary to bacterial pneumonia and was started on broad-spectrum IV antibiotics. 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 Please see full consultation and progress notes from Pulmonology for full details. Please see full history and physical in addition to progress notes for full details on this patient. The patient also with urinary tract infection upon admission and antibiotics also will cover for urinary bugs. The patient had blood cultures, which were found to be negative for growth. Of significance, the patient did have a contaminate with coagulase-negative Staphylococcus aureus consistent with normal skin joe such as Staphylococcus epidermidis. The patient was transitioned to oral antibiotics and oral steroids by Pulmonology and recommended safe for discharge on 05/04/2019 with close followup in the outpatient setting. The patient recommended to complete a full course of oral antibiotics for resolution of symptoms. The patient recommended to complete a full tapering dose of steroids. The patient is recommended to follow up with Pulmonology in the outpatient setting in the next 1 to 2 weeks. The patient is recommended to have all other medications adjusted appropriately by admitting physician at subacute facility. The patient is recommended to return to acute care hospital immediately if signs or symptoms return, worsen, or any other new symptoms occur. Greater than 33 minutes spent coordinating care and discharge process for this patient. Job ID: [id number]
== END 2019-05-04 14:41 | DRG 871 ==
LOC: ERS 21:24 → T4-B 05-01 01:55
PROVIDERS: ADMIT Family Medicine; ATTEND Family Medicine
DX: A41.9 Sepsis, unspecified organism (principal); J13 Pneumonia due to Streptococcus pneumoniae; N39.0 Urinary tract infection, site not specified; J44.0 Chronic obstructive pulmonary disease with (acute) lower respiratory infection; J96.11 Chronic respiratory failure with hypoxia; E78.5 Hyperlipidemia, unspecified; I89.0 Lymphedema, not elsewhere classified; E66.01 Morbid (severe) obesity due to excess calories; G47.33 Obstructive sleep apnea (adult) (pediatric); G25.81 Restless legs syndrome; F41.9 Anxiety disorder, unspecified; F32.9 Major depressive disorder, single episode, unspecified; K21.9 Gastro-esophageal reflux disease without esophagitis; L30.4 Erythema intertrigo; Z93.0 Tracheostomy status; Z86.73 Personal history of transient ischemic attack (TIA), and cerebral infarction without residual deficits; Z90.49 Acquired absence of other specified parts of digestive tract; Z90.710 Acquired absence of both cervix and uterus; Z88.8 Allergy status to other drugs, medicaments and biological substances; Z91.040 Latex allergy status
CPT/HCPCS: 36415; 36416; 71045; 80048; 80053; 81001; 82550; 83605; 83880; 84484; 85007; 85025; 85027; 87040; 87149; 87804; 93005; 94640; 96361; 96365; 96366; 96375; A4353; J0692; J1956; J3490; J7512; J7620

== ENCOUNTER 2021-07-14 15:16 | Inpatient (IN) | payer MEDICARE, MEDICAID ==
[2021-07-14 16:14] LABS: #Eosinphils 0.1 thou/uL (0.0-0.7); #Lymphocytes 1.3 thou/uL (1.20-3.40); #Monocytes 0.7 thou/uL (0.11-0.59); #Neutrophils 2.9 thou/uL (1.40-6.50); %Basophils 0.2 % (0.0-1.0); %Eosinophils 1.1 % (0.0-10.0); %Lymphocytes 25.9 % (21.0-51.0); %Monocytes 14.4 % (0.0-10.0); %Neutrophils 58.5 % (42.0-75.0); Hemoglobin 11.5 g/dL (12.0-16.0); Mean Corpuscular HGB CONC 32.2 g/dL (32.0-36.0); Mean Corpuscular Hemoglobin 31.3 pg (27.0-31.0); Mean Corpuscular Volume 97.3 fL (78.0-98.0); Mean Platelet Volume 6.8 fL (7.4-10.4); Platelet Count 144 thou/uL (130-400); RBC Distribution Width 15.3 % (11.5-14.5); Red Blood Cell (RBC) Count 3.68 mill/uL (4.20-5.40)
[2021-07-14 16:34] LABS: ALT (SGPT) 10 U/L (8-55); AST (SGOT) 22 U/L (5-34); Albumin 3.4 g/dL (3.4-4.8); Alkaline Phosphatase 70 U/L (40-110); Anion Gap 16 mmol/L (10-20); BUN (Urea Nitrogen) 24 mg/dL (9.8-20.1); Bilirubin, Total 0.5 mg/dL (0.2-1.2); Calc. Creatinine Clearance 0 mL/min (70-130); Calcium 8.3 mg/dL (7.8-10.44); Carbon Dioxide 33 mmol/L (23-31); Chloride 93 mmol/L (98-107); Globulin 3.7 g/dL (2.4-3.5); Glucose 111 mg/dL (80-115); Potassium 3.4 mmol/L (3.5-5.1); Protein, Total 7.1 g/dL (5.8-8.1); Sodium 139 mmol/L (136-145)
[2021-07-14 16:57] LABS: CKMB 1.4 ng/mL (0-6.6)
[2021-07-14] MEDS ORDERED: Ondansetron ODT 4 MG TAB PO PRN (19:04)
[2021-07-14] MEDS ORDERED: Ondansetron PF 4 MG/2 ML Vial IVP PRN (19:04)
[2021-07-14] MEDS ORDERED: guaiFENesin 200 MG TAB PO PRN (19:11)
[2021-07-14] MEDS ORDERED: Pharmacy to Dose REMDESIVIR IVPB PRN (19:15)
[2021-07-14] MEDS ORDERED: Potassium Chloride 20 MEQ TAB PO SCH (19:30)
[2021-07-14 19:58] LABS: Magnesium 1.6 mg/dL (1.6-2.6)
[2021-07-14 20:04] LABS: Troponin I 0.103 ng/mL (< 0.028)
[2021-07-14] MEDS ORDERED: Albuterol 200 PUFF (6.7GM INHALER) INH PRN (20:19)
[2021-07-14] MEDS ORDERED: traMADol HCl 50 MG TAB PO PRN (22:34)
[2021-07-14] MEDS ORDERED: Dexamethasone 10 MG/ML VIAL SLOW IVP SCH (22:54)
[2021-07-14] MEDS ORDERED: Enoxaparin Sodium 40 MG/0.4 ML SYRINGE SC SCH (23:15)
[2021-07-15 01:21] LABS: Troponin I 0.076 ng/mL (< 0.028)
[2021-07-15 07:03] LABS: #Lymphocytes 0.6 thou/uL (1.20-3.40); #Monocytes 0.1 thou/uL (0.11-0.59); #Neutrophils 3.8 thou/uL (1.40-6.50); %Basophils 0.4 % (0.0-1.0); %Eosinophils 0.1 % (0.0-10.0); %Lymphocytes 13.5 % (21.0-51.0); %Monocytes 2.2 % (0.0-10.0); %Neutrophils 83.8 % (42.0-75.0); Hemoglobin 11.4 g/dL (12.0-16.0); Mean Corpuscular HGB CONC 31.8 g/dL (32.0-36.0); Mean Corpuscular Hemoglobin 31.3 pg (27.0-31.0); Mean Corpuscular Volume 98.2 fL (78.0-98.0); Mean Platelet Volume 6.9 fL (7.4-10.4); Platelet Count 136 thou/uL (130-400); Red Blood Cell (RBC) Count 3.64 mill/uL (4.20-5.40); White Blood Cell (WBC) Count 4.5 thou/uL (4.8-10.8)
[2021-07-15 07:20] LABS: Anion Gap 17 mmol/L (10-20); BUN (Urea Nitrogen) 26 mg/dL (9.8-20.1); Calc. Creatinine Clearance 116 mL/min (70-130); Calcium 8.7 mg/dL (7.8-10.44); Carbon Dioxide 33 mmol/L (23-31); Chloride 92 mmol/L (98-107); Glucose 157 mg/dL (80-115); Potassium 3.6 mmol/L (3.5-5.1); Sodium 138 mmol/L (136-145)
[2021-07-15] MEDS: Enoxaparin Sodium 40 MG/0.4 ML SYRINGE SC SCH ×2 (09:14→20:33)
[2021-07-15] MEDS: Ascorbic Acid 500 mg Chewable Tablet PO SCH (09:14)
[2021-07-15] MEDS: Zinc Sulfate 220 MG CAP PO SCH (09:14)
[2021-07-15] MEDS: Dexamethasone 10 MG/ML VIAL SLOW IVP SCH (09:14)
[2021-07-15] MEDS: Carvedilol 3.125 MG TAB PO SCH ×2 (09:14→16:33)
[2021-07-15] MEDS: Simvastatin 10 MG TAB PO SCH (20:33)
[2021-07-15] MEDS ORDERED: Enoxaparin Sodium 40 MG/0.4 ML SYRINGE SC SCH (21:00)
[2021-07-15] MEDS ORDERED: REMDESIVIR 200 MG in Sodium Chloride 0.9% 250 ML 210 ML IV SCH (21:00)
[2021-07-15] MEDS ORDERED: traMADol HCl 50 MG TAB PO SCH (23:45)
[2021-07-16 06:58] LABS: #Lymphocytes 0.7 thou/uL (1.20-3.40); #Monocytes 0.4 thou/uL (0.11-0.59); #Neutrophils 4.6 thou/uL (1.40-6.50); %Eosinophils 0.1 % (0.0-10.0); %Lymphocytes 11.9 % (21.0-51.0); %Monocytes 7.7 % (0.0-10.0); %Neutrophils 80.3 % (42.0-75.0); Hemoglobin 11.4 g/dL (12.0-16.0); Mean Corpuscular Hemoglobin 31.6 pg (27.0-31.0); Mean Corpuscular Volume 98.8 fL (78.0-98.0); Mean Platelet Volume 7.5 fL (7.4-10.4); Platelet Count 147 thou/uL (130-400); RBC Distribution Width 14.7 % (11.5-14.5); White Blood Cell (WBC) Count 5.7 thou/uL (4.8-10.8)
[2021-07-16 07:20] LABS: Anion Gap 17 mmol/L (10-20); BUN (Urea Nitrogen) 35 mg/dL (9.8-20.1); Calc. Creatinine Clearance 127 mL/min (70-130); Calcium 8.6 mg/dL (7.8-10.44); Carbon Dioxide 32 mmol/L (23-31); Chloride 93 mmol/L (98-107); Glucose 162 mg/dL (80-115); Potassium 3.2 mmol/L (3.5-5.1); Sodium 139 mmol/L (136-145)
[2021-07-16] MEDS: Carvedilol 3.125 MG TAB PO SCH ×2 (10:51→17:43)
[2021-07-16] MEDS: Ascorbic Acid 500 mg Chewable Tablet PO SCH (10:51)
[2021-07-16] MEDS: Zinc Sulfate 220 MG CAP PO SCH (10:52)
[2021-07-16] MEDS: Dexamethasone 10 MG/ML VIAL SLOW IVP SCH (10:52)
[2021-07-16] MEDS: Enoxaparin Sodium 40 MG/0.4 ML SYRINGE SC SCH ×2 (10:52→20:52)
[2021-07-16] MEDS: traMADol HCl 50 MG TAB PO PRN ×2 (14:40→22:05)
[2021-07-16] MEDS: REMDESIVIR 100 MG in Sodium Chloride 0.9% 250 ML 230 ML IV SCH (20:52)
[2021-07-16] MEDS: Simvastatin 10 MG TAB PO SCH (20:53)
[2021-07-17 07:51] LABS: #Lymphocytes 0.6 thou/uL (1.20-3.40); #Monocytes 0.4 thou/uL (0.11-0.59); #Neutrophils 7.3 thou/uL (1.40-6.50); %Eosinophils 0.1 % (0.0-10.0); %Lymphocytes 7.3 % (21.0-51.0); %Monocytes 4.7 % (0.0-10.0); %Neutrophils 87.9 % (42.0-75.0); Mean Corpuscular HGB CONC 32.6 g/dL (32.0-36.0); Mean Corpuscular Hemoglobin 31.9 pg (27.0-31.0); Mean Corpuscular Volume 97.8 fL (78.0-98.0); Mean Platelet Volume 7.6 fL (7.4-10.4); Platelet Count 149 thou/uL (130-400); RBC Distribution Width 14.8 % (11.5-14.5); Red Blood Cell (RBC) Count 3.75 mill/uL (4.20-5.40); White Blood Cell (WBC) Count 8.3 thou/uL (4.8-10.8)
[2021-07-17 08:10] LABS: ALT (SGPT) 10 U/L (8-55); AST (SGOT) 23 U/L (5-34); Albumin 3.2 g/dL (3.4-4.8); Alkaline Phosphatase 63 U/L (40-110); Anion Gap 14 mmol/L (10-20); BUN (Urea Nitrogen) 29 mg/dL (9.8-20.1); Bilirubin, Total 0.4 mg/dL (0.2-1.2); Calc. Creatinine Clearance 168 mL/min (70-130); Calcium 8.7 mg/dL (7.8-10.44); Carbon Dioxide 37 mmol/L (23-31); Chloride 93 mmol/L (98-107); Globulin 4.3 g/dL (2.4-3.5); Glucose 139 mg/dL (80-115); Protein, Total 7.5 g/dL (5.8-8.1); Sodium 141 mmol/L (136-145)
[2021-07-17] MEDS: Carvedilol 3.125 MG TAB PO SCH ×2 (09:43→16:39)
[2021-07-17] MEDS: Zinc Sulfate 220 MG CAP PO SCH (09:43)
[2021-07-17] MEDS: Ascorbic Acid 500 mg Chewable Tablet PO SCH (09:43)
[2021-07-17] MEDS: Dexamethasone 10 MG/ML VIAL SLOW IVP SCH ×2 (09:43→20:56)
[2021-07-17] MEDS: Enoxaparin Sodium 40 MG/0.4 ML SYRINGE SC SCH ×2 (09:43→20:56)
[2021-07-17] MEDS: traMADol HCl 50 MG TAB PO PRN ×2 (12:12→20:55)
[2021-07-17] MEDS: Potassium Chloride 20 MEQ TAB PO SCH (16:39)
[2021-07-17] MEDS: Furosemide 40 MG TAB PO SCH (20:54)
[2021-07-17] MEDS: Simvastatin 10 MG TAB PO SCH (20:54)
[2021-07-17] MEDS: REMDESIVIR 100 MG in Sodium Chloride 0.9% 250 ML 230 ML IV SCH (20:56)
[2021-07-18 01:46] LABS: Bilirubin Negative (Negative); Blood, Urine Negative (Negative); Clarity Clear (Clear); Glucose, Urine (Dipstick) Negative (Negative); Ketone, Urine Negative (Negative); Leukocyte Negative (Negative); Nitrite Negative (Negative); Protein, Urine (Dipstick) Negative (Neg-Trace); Urobilinogen 0.2 mg/dL (Less than 2)
[2021-07-18 01:48] LABS: Specific Gravity, Urine 1.011 (1.002-1.036)
[2021-07-18 01:49] LABS: Urine Culture Reflex No No
[2021-07-18] MEDS: traMADol HCl 50 MG TAB PO PRN ×2 (04:32→20:19)
[2021-07-18] MEDS: Enoxaparin Sodium 40 MG/0.4 ML SYRINGE SC SCH ×2 (10:46→20:19)
[2021-07-18] MEDS: Zinc Sulfate 220 MG CAP PO SCH (10:47)
[2021-07-18] MEDS: Furosemide 40 MG TAB PO SCH ×2 (10:47→20:20)
[2021-07-18] MEDS: Ascorbic Acid 500 mg Chewable Tablet PO SCH (10:47)
[2021-07-18] MEDS: Potassium Chloride 20 MEQ TAB PO SCH ×2 (10:47→17:17)
[2021-07-18] MEDS: Carvedilol 3.125 MG TAB PO SCH ×2 (10:47→17:17)
[2021-07-18] MEDS: Dexamethasone 10 MG/ML VIAL SLOW IVP SCH ×2 (10:47→20:19)
[2021-07-18 11:59] LABS: #Lymphocytes 0.7 thou/uL (1.20-3.40); #Monocytes 0.3 thou/uL (0.11-0.59); #Neutrophils 4.7 thou/uL (1.40-6.50); %Basophils 0.2 % (0.0-1.0); %Eosinophils 0.2 % (0.0-10.0); %Lymphocytes 12.7 % (21.0-51.0); %Monocytes 5.9 % (0.0-10.0); %Neutrophils 81.1 % (42.0-75.0); Hemoglobin 12.1 g/dL (12.0-16.0); Mean Corpuscular HGB CONC 30.8 g/dL (32.0-36.0); Mean Corpuscular Hemoglobin 30.6 pg (27.0-31.0); Mean Corpuscular Volume 99.3 fL (78.0-98.0); Platelet Count 157 thou/uL (130-400); Red Blood Cell (RBC) Count 3.96 mill/uL (4.20-5.40); White Blood Cell (WBC) Count 5.8 thou/uL (4.8-10.8)
[2021-07-18 12:08] LABS: ALT (SGPT) 10 U/L (8-55); AST (SGOT) 20 U/L (5-34); Albumin 3.3 g/dL (3.4-4.8); Alkaline Phosphatase 65 U/L (40-110); Bilirubin, Direct 0.2 mg/dL (0.1-0.3); Bilirubin, Total 0.4 mg/dL (0.2-1.2); Protein, Total 7.7 g/dL (5.8-8.1)
[2021-07-18 12:11] LABS: Anion Gap 15 mmol/L (10-20); BUN (Urea Nitrogen) 26 mg/dL (9.8-20.1); Calc. Creatinine Clearance 173 mL/min (70-130); Carbon Dioxide 36 mmol/L (23-31); Chloride 93 mmol/L (98-107); Glucose 145 mg/dL (80-115); Potassium 3.1 mmol/L (3.5-5.1); Sodium 141 mmol/L (136-145)
[2021-07-18] MEDS: Simvastatin 10 MG TAB PO SCH (20:19)
[2021-07-18] MEDS: REMDESIVIR 100 MG in Sodium Chloride 0.9% 250 ML 230 ML IV SCH (20:41)
[2021-07-19] MEDS ORDERED: Labetalol HCl 100 MG/20 ML VIAL SLOW IVP PRN (00:31)
[2021-07-19] MEDS: Melatonin 3 MG TAB PO PRN (00:40)
[2021-07-19] MEDS: hydrALAZINE 20 MG/ML VIAL SLOW IVP PRN ×3 (00:40→18:27)
[2021-07-19] MEDS: traMADol HCl 50 MG TAB PO PRN ×3 (04:33→21:43)
[2021-07-19] MEDS: Zinc Sulfate 220 MG CAP PO SCH (08:47)
[2021-07-19] MEDS: Ascorbic Acid 500 mg Chewable Tablet PO SCH (08:47)
[2021-07-19] MEDS ORDERED: Aquaphor 85 GM TUBE TOP PRN (08:47)
[2021-07-19] MEDS: Potassium Chloride 20 MEQ TAB PO SCH ×2 (08:47→18:20)
[2021-07-19] MEDS: Carvedilol 3.125 MG TAB PO SCH ×2 (08:47→18:21)
[2021-07-19] MEDS: Dexamethasone 10 MG/ML VIAL SLOW IVP SCH ×2 (08:48→20:22)
[2021-07-19] MEDS: Enoxaparin Sodium 40 MG/0.4 ML SYRINGE SC SCH ×2 (08:48→20:23)
[2021-07-19] MEDS: Furosemide 40 MG TAB PO SCH ×2 (08:48→20:22)
[2021-07-19 12:08] LABS: Albumin 3.1 g/dL (3.4-4.8)
[2021-07-19 12:10] LABS: Bilirubin, Total 0.5 mg/dL (0.2-1.2)
[2021-07-19 12:11] LABS: Protein, Total 7.5 g/dL (5.8-8.1)
[2021-07-19 12:13] LABS: Alkaline Phosphatase 64 U/L (40-110)
[2021-07-19 12:16] LABS: AST (SGOT) 23 U/L (5-34); Bilirubin, Direct 0.2 mg/dL (0.1-0.3)
[2021-07-19 12:17] LABS: ALT (SGPT) 14 U/L (8-55)
[2021-07-19] MEDS: hydrOXYzine Pamoate 25 mg Capsule PO PRN (14:14)
[2021-07-19] MEDS: REMDESIVIR 100 MG in Sodium Chloride 0.9% 250 ML 230 ML IV SCH (20:22)
[2021-07-19] MEDS: Simvastatin 10 MG TAB PO SCH (21:40)
[2021-07-20 04:31] LABS: ALT (SGPT) 16 U/L (8-55); AST (SGOT) 21 U/L (5-34); Albumin 3.1 g/dL (3.4-4.8); Alkaline Phosphatase 66 U/L (40-110); Bilirubin, Direct 0.2 mg/dL (0.1-0.3); Bilirubin, Total 0.4 mg/dL (0.2-1.2); Protein, Total 7.2 g/dL (5.8-8.1)
[2021-07-20] MEDS: Zinc Sulfate 220 MG CAP PO SCH (08:02)
[2021-07-20] MEDS: Carvedilol 3.125 MG TAB PO SCH ×2 (08:02→18:42)
[2021-07-20] MEDS: Ascorbic Acid 500 mg Chewable Tablet PO SCH (08:02)
[2021-07-20] MEDS: Potassium Chloride 20 MEQ TAB PO SCH ×2 (08:02→18:42)
[2021-07-20] MEDS: Furosemide 40 MG TAB PO SCH ×2 (08:02→19:53)
[2021-07-20] MEDS: Dexamethasone 10 MG/ML VIAL SLOW IVP SCH ×2 (08:03→19:52)
[2021-07-20] MEDS: Enoxaparin Sodium 40 MG/0.4 ML SYRINGE SC SCH ×2 (08:03→19:52)
[2021-07-20] MEDS: Albuterol 200 PUFF (6.7GM INHALER) INH SCH ×3 (13:21→18:54)
[2021-07-20] MEDS: Simvastatin 10 MG TAB PO SCH (19:53)
[2021-07-21 04:03] LABS: #Lymphocytes 0.8 thou/uL (1.20-3.40); #Monocytes 0.4 thou/uL (0.11-0.59); %Basophils 0.1 % (0.0-1.0); %Eosinophils 0.1 % (0.0-10.0); %Lymphocytes 7.3 % (21.0-51.0); %Monocytes 3.8 % (0.0-10.0); %Neutrophils 88.7 % (42.0-75.0); Hemoglobin 14.4 g/dL (12.0-16.0); Mean Corpuscular HGB CONC 30.8 g/dL (32.0-36.0); Mean Corpuscular Hemoglobin 30.2 pg (27.0-31.0); Mean Corpuscular Volume 98.1 fL (78.0-98.0); Platelet Count 210 thou/uL (130-400); RBC Distribution Width 15.7 % (11.5-14.5); Red Blood Cell (RBC) Count 4.78 mill/uL (4.20-5.40); White Blood Cell (WBC) Count 11.3 thou/uL (4.8-10.8)
[2021-07-21 04:25] LABS: ALT (SGPT) 19 U/L (8-55); AST (SGOT) 25 U/L (5-34); Albumin 3.3 g/dL (3.4-4.8); Alkaline Phosphatase 72 U/L (40-110); Anion Gap 17 mmol/L (10-20); BUN (Urea Nitrogen) 30 mg/dL (9.8-20.1); Bilirubin, Direct 0.4 mg/dL (0.1-0.3); Bilirubin, Total 0.6 mg/dL (0.2-1.2); Calc. Creatinine Clearance 147 mL/min (70-130); Calcium 9.4 mg/dL (7.8-10.44); Carbon Dioxide 33 mmol/L (23-31); Chloride 98 mmol/L (98-107); Glucose 181 mg/dL (80-115); Potassium 3.8 mmol/L (3.5-5.1); Protein, Total 7.8 g/dL (5.8-8.1); Sodium 144 mmol/L (136-145)
[2021-07-21] MEDS ORDERED: Sodium Chloride For Inhalation 0.9% 3 ML NEB ONE (05:24)
[2021-07-21] MEDS: Albuterol 200 PUFF (6.7GM INHALER) INH SCH ×3 (06:41→15:51)
[2021-07-21 06:44] LABS: Actual Bicarbonate (HCO3a) 37.5 mEq/L (22-28); Base Excess (BEa) 12.7 mEq/L (-2.0 to +3.0); CO2 Tension 47.5 mmHg (35.0-45.0); Carboxyhemoglobin (COHb) 0.5 gm% (0.0-3.0); Hemoglobin (Hb) 14.3 g/dL (12.0-16.0); Potassium - ABG Lab 3.23 mmol/L (3.70-5.30); pH, Arterial 7.52 (7.35-7.45)
[2021-07-21] MEDS: Ascorbic Acid 500 mg Chewable Tablet PO SCH (07:38)
[2021-07-21] MEDS: Carvedilol 3.125 MG TAB PO SCH ×2 (07:38→15:50)
[2021-07-21] MEDS: Enoxaparin Sodium 40 MG/0.4 ML SYRINGE SC SCH ×2 (07:38→22:37)
[2021-07-21] MEDS: Furosemide 40 MG TAB PO SCH (07:38)
[2021-07-21] MEDS: Potassium Chloride 20 MEQ TAB PO SCH ×2 (07:38→15:50)
[2021-07-21] MEDS: Dexamethasone 10 MG/ML VIAL SLOW IVP SCH ×2 (07:38→22:38)
[2021-07-21] MEDS: Zinc Sulfate 220 MG CAP PO SCH (07:38)
[2021-07-21 08:42] LABS: ALV-art Gradient 478.885 mmHg (0-20); O2 Tension (PaO2), arterial 46.4 mmHg (> 80.0); Puncture Site LRA
[2021-07-21] MEDS ORDERED: Furosemide 100 MG/10 ML VIAL SLOW IVP SCH (09:30)
[2021-07-21] MEDS ORDERED: ALPRAZolam 0.5 MG TAB PO SCH (11:15)
[2021-07-21] MEDS ORDERED: Pharmacy to Dose BARICITINIB IVPB PRN (14:34)
[2021-07-21] MEDS: ALPRAZolam 0.5 MG TAB PO SCH ×2 (15:51→22:38)
[2021-07-21] MEDS: Furosemide 100 MG/10 ML VIAL SLOW IVP SCH (22:38)
[2021-07-21] MEDS: Simvastatin 10 MG TAB PO SCH (22:39)
[2021-07-21] MEDS: traMADol HCl 50 MG TAB PO PRN (22:49)
[2021-07-21] MEDS: Melatonin 3 MG TAB PO PRN (22:49)
[2021-07-22] MEDS: Albuterol 200 PUFF (6.7GM INHALER) INH SCH ×5 (00:37→19:09)
[2021-07-22 04:23] LABS: BUN (Urea Nitrogen) 33 mg/dL (9.8-20.1); Calc. Creatinine Clearance 140 mL/min (70-130); Calcium 8.8 mg/dL (7.8-10.44); Glucose 191 mg/dL (80-115); Magnesium 1.4 mg/dL (1.6-2.6)
[2021-07-22 04:35] LABS: Anion Gap 16 mmol/L (10-20); Carbon Dioxide 34 mmol/L (23-31); Chloride 95 mmol/L (98-107); Potassium 3.4 mmol/L (3.5-5.1); Sodium 142 mmol/L (136-145)
[2021-07-22] MEDS: Enoxaparin Sodium 40 MG/0.4 ML SYRINGE SC SCH ×2 (07:57→21:10)
[2021-07-22] MEDS: Dexamethasone 10 MG/ML VIAL SLOW IVP SCH ×2 (07:58→21:11)
[2021-07-22] MEDS: Zinc Sulfate 220 MG CAP PO SCH (07:58)
[2021-07-22] MEDS: Furosemide 100 MG/10 ML VIAL SLOW IVP SCH (07:58)
[2021-07-22] MEDS: Ascorbic Acid 500 mg Chewable Tablet PO SCH (07:58)
[2021-07-22] MEDS: Carvedilol 3.125 MG TAB PO SCH ×2 (07:58→19:09)
[2021-07-22] MEDS: Potassium Chloride 20 MEQ TAB PO SCH ×2 (07:59→19:09)
[2021-07-22] MEDS: ALPRAZolam 0.5 MG TAB PO SCH ×3 (07:59→21:11)
[2021-07-22] MEDS ORDERED: Potassium Chloride 20 MEQ TAB PO SCH (09:15)
[2021-07-22] MEDS: Simvastatin 10 MG TAB PO SCH (21:11)
[2021-07-22] MEDS: traMADol HCl 50 MG TAB PO PRN (23:13)
[2021-07-23 04:05] LABS: BUN (Urea Nitrogen) 32 mg/dL (9.8-20.1); Calc. Creatinine Clearance 160 mL/min (70-130); Calcium 8.6 mg/dL (7.8-10.44); Glucose 163 mg/dL (80-115); Magnesium 1.5 mg/dL (1.6-2.6)
[2021-07-23 04:14] LABS: Anion Gap 19 mmol/L (10-20); Carbon Dioxide 35 mmol/L (23-31); Chloride 96 mmol/L (98-107); Potassium 3.5 mmol/L (3.5-5.1); Sodium 146 mmol/L (136-145)
[2021-07-23] MEDS: Carvedilol 3.125 MG TAB PO SCH ×2 (08:47→17:30)
[2021-07-23] MEDS: Ascorbic Acid 500 mg Chewable Tablet PO SCH (08:47)
[2021-07-23] MEDS: Dexamethasone 10 MG/ML VIAL SLOW IVP SCH ×2 (08:47→20:30)
[2021-07-23] MEDS: Potassium Chloride 20 MEQ TAB PO SCH ×2 (08:47→17:30)
[2021-07-23] MEDS: Zinc Sulfate 220 MG CAP PO SCH (08:47)
[2021-07-23] MEDS: ALPRAZolam 0.5 MG TAB PO SCH ×3 (08:48→20:30)
[2021-07-23] MEDS: Enoxaparin Sodium 40 MG/0.4 ML SYRINGE SC SCH ×2 (08:48→20:31)
[2021-07-23] MEDS: Albuterol 200 PUFF (6.7GM INHALER) INH SCH ×3 (08:48→15:45)
[2021-07-23] MEDS: traMADol HCl 50 MG TAB PO PRN ×2 (09:56→20:31)
[2021-07-24] MEDS: Simvastatin 10 MG TAB PO SCH ×2 (03:28→21:51)
[2021-07-24] MEDS: Albuterol 200 PUFF (6.7GM INHALER) INH SCH ×4 (07:26→14:22)
[2021-07-24] MEDS: Ascorbic Acid 500 mg Chewable Tablet PO SCH (08:43)
[2021-07-24] MEDS: Potassium Chloride 20 MEQ TAB PO SCH ×2 (08:43→16:36)
[2021-07-24] MEDS: Carvedilol 3.125 MG TAB PO SCH ×2 (08:43→16:36)
[2021-07-24] MEDS: Zinc Sulfate 220 MG CAP PO SCH (08:43)
[2021-07-24] MEDS: ALPRAZolam 0.5 MG TAB PO SCH ×3 (08:43→21:51)
[2021-07-24] MEDS: Dexamethasone 10 MG/ML VIAL SLOW IVP SCH ×2 (08:43→21:51)
[2021-07-24] MEDS: Enoxaparin Sodium 40 MG/0.4 ML SYRINGE SC SCH ×2 (08:43→21:15)
[2021-07-24] MEDS: traMADol HCl 50 MG TAB PO PRN (12:32)
[2021-07-24] MEDS: hydrOXYzine Pamoate 25 mg Capsule PO PRN (22:07)
[2021-07-25 04:12] LABS: BUN (Urea Nitrogen) 26 mg/dL (9.8-20.1); Calc. Creatinine Clearance 187 mL/min (70-130); Calcium 8.7 mg/dL (7.8-10.44); Glucose 179 mg/dL (80-115)
[2021-07-25 04:23] LABS: Anion Gap 13 mmol/L (10-20); Carbon Dioxide 38 mmol/L (23-31); Chloride 96 mmol/L (98-107); Potassium 4.6 mmol/L (3.5-5.1); Sodium 142 mmol/L (136-145)
[2021-07-25] MEDS: Zinc Sulfate 220 MG CAP PO SCH (09:15)
[2021-07-25] MEDS: Potassium Chloride 20 MEQ TAB PO SCH ×2 (09:15→16:54)
[2021-07-25] MEDS: Carvedilol 3.125 MG TAB PO SCH ×2 (09:15→16:54)
[2021-07-25] MEDS: Ascorbic Acid 500 mg Chewable Tablet PO SCH (09:15)
[2021-07-25] MEDS: Enoxaparin Sodium 40 MG/0.4 ML SYRINGE SC SCH ×2 (09:16→21:19)
[2021-07-25] MEDS: Albuterol 200 PUFF (6.7GM INHALER) INH SCH ×3 (09:16→16:54)
[2021-07-25] MEDS: ALPRAZolam 0.5 MG TAB PO SCH ×3 (09:16→21:19)
[2021-07-25] MEDS: Dexamethasone 10 MG/ML VIAL SLOW IVP SCH ×2 (09:16→21:19)
[2021-07-25] MEDS: traMADol HCl 50 MG TAB PO PRN ×2 (09:31→21:19)
[2021-07-25] MEDS ORDERED: Furosemide 40 MG/4 ML VIAL SLOW IVP SCH (10:00)
[2021-07-25] MEDS: Simvastatin 10 MG TAB PO SCH (21:19)
[2021-07-25] MEDS: hydrOXYzine Pamoate 25 mg Capsule PO PRN (23:43)
[2021-07-26] MEDS: Ascorbic Acid 500 mg Chewable Tablet PO SCH (09:23)
[2021-07-26] MEDS: Enoxaparin Sodium 40 MG/0.4 ML SYRINGE SC SCH ×2 (09:24→20:33)
[2021-07-26] MEDS: Potassium Chloride 20 MEQ TAB PO SCH ×2 (09:24→17:44)
[2021-07-26] MEDS: Dexamethasone 10 MG/ML VIAL SLOW IVP SCH ×2 (09:24→20:33)
[2021-07-26] MEDS: Zinc Sulfate 220 MG CAP PO SCH (09:24)
[2021-07-26] MEDS: Carvedilol 3.125 MG TAB PO SCH ×2 (09:24→17:44)
[2021-07-26] MEDS: ALPRAZolam 0.5 MG TAB PO SCH ×3 (10:54→20:33)
[2021-07-26] MEDS: traMADol HCl 50 MG TAB PO PRN ×2 (12:23→21:36)
[2021-07-26] MEDS: Albuterol 200 PUFF (6.7GM INHALER) INH SCH ×3 (19:59→20:32)
[2021-07-26] MEDS: Simvastatin 10 MG TAB PO SCH (20:33)
[2021-07-27 04:02] LABS: #Lymphocytes 0.4 thou/uL (1.20-3.40); #Monocytes 0.2 thou/uL (0.11-0.59); #Neutrophils 8.2 thou/uL (1.40-6.50); %Basophils 0.2 % (0.0-1.0); %Eosinophils 0.2 % (0.0-10.0); %Lymphocytes 4.2 % (21.0-51.0); %Monocytes 1.9 % (0.0-10.0); %Neutrophils 93.6 % (42.0-75.0); Hemoglobin 12.3 g/dL (12.0-16.0); Mean Corpuscular Hemoglobin 30.8 pg (27.0-31.0); Mean Corpuscular Volume 99.4 fL (78.0-98.0); Mean Platelet Volume 8.5 fL (7.4-10.4); Platelet Count 138 thou/uL (130-400); RBC Distribution Width 15.1 % (11.5-14.5); Red Blood Cell (RBC) Count 3.98 mill/uL (4.20-5.40); White Blood Cell (WBC) Count 8.8 thou/uL (4.8-10.8)
[2021-07-27 04:30] LABS: Anion Gap 11 mmol/L (10-20); BUN (Urea Nitrogen) 24 mg/dL (9.8-20.1); Calc. Creatinine Clearance 177 mL/min (70-130); Calcium 8.8 mg/dL (7.8-10.44); Carbon Dioxide 36 mmol/L (23-31); Chloride 94 mmol/L (98-107); Glucose 192 mg/dL (80-115); Potassium 5.3 mmol/L (3.5-5.1); Sodium 136 mmol/L (136-145)
[2021-07-27] MEDS: Albuterol 200 PUFF (6.7GM INHALER) INH SCH ×4 (06:34→20:18)
[2021-07-27] MEDS: Potassium Chloride 20 MEQ TAB PO SCH ×3 (08:00→16:34)
[2021-07-27] MEDS: Zinc Sulfate 220 MG CAP PO SCH (09:07)
[2021-07-27] MEDS: Dexamethasone 10 MG/ML VIAL SLOW IVP SCH (09:07)
[2021-07-27] MEDS: ALPRAZolam 0.5 MG TAB PO SCH ×3 (09:08→20:18)
[2021-07-27] MEDS: Ascorbic Acid 500 mg Chewable Tablet PO SCH (09:08)
[2021-07-27] MEDS: Carvedilol 3.125 MG TAB PO SCH ×2 (09:08→17:13)
[2021-07-27] MEDS: Enoxaparin Sodium 40 MG/0.4 ML SYRINGE SC SCH ×2 (09:08→20:18)
[2021-07-27] MEDS: traMADol HCl 50 MG TAB PO PRN (20:17)
[2021-07-27] MEDS: Simvastatin 10 MG TAB PO SCH (20:18)
[2021-07-28] MEDS: Albuterol 200 PUFF (6.7GM INHALER) INH SCH ×4 (06:11→20:18)
[2021-07-28] MEDS: Ascorbic Acid 500 mg Chewable Tablet PO SCH (08:20)
[2021-07-28] MEDS: Carvedilol 3.125 MG TAB PO SCH ×2 (08:20→16:47)
[2021-07-28] MEDS: Dexamethasone 10 MG/ML VIAL SLOW IVP SCH (08:20)
[2021-07-28] MEDS: Zinc Sulfate 220 MG CAP PO SCH (08:20)
[2021-07-28] MEDS: ALPRAZolam 0.5 MG TAB PO SCH ×3 (08:20→20:17)
[2021-07-28] MEDS: Enoxaparin Sodium 40 MG/0.4 ML SYRINGE SC SCH ×2 (08:21→20:17)
[2021-07-28] MEDS: Potassium Chloride 20 MEQ TAB PO SCH ×2 (08:22→16:48)
[2021-07-28] MEDS: traMADol HCl 50 MG TAB PO PRN ×2 (14:22→20:17)
[2021-07-28] MEDS: Senokot S 8.6-50 MG TAB PO SCH (20:17)
[2021-07-28] MEDS: Simvastatin 10 MG TAB PO SCH (20:17)
[2021-07-28] MEDS: Nystatin Powder 15 GM BOT TOP SCH (20:19)
[2021-07-28] MEDS ORDERED: Electrolyte Replacement Protocol 1 EACH FS SCH (23:30)
[2021-07-29 03:57] LABS: #Lymphocytes 0.6 thou/uL (1.20-3.40); #Monocytes 0.7 thou/uL (0.11-0.59); #Neutrophils 7.9 thou/uL (1.40-6.50); %Eosinophils 0.3 % (0.0-10.0); %Lymphocytes 6.7 % (21.0-51.0); %Monocytes 7.3 % (0.0-10.0); %Neutrophils 85.8 % (42.0-75.0); Hemoglobin 12.3 g/dL (12.0-16.0); Mean Corpuscular HGB CONC 31.5 g/dL (32.0-36.0); Mean Corpuscular Hemoglobin 31.3 pg (27.0-31.0); Mean Corpuscular Volume 99.4 fL (78.0-98.0); Mean Platelet Volume 9.1 fL (7.4-10.4); Platelet Count 123 thou/uL (130-400); RBC Distribution Width 15.3 % (11.5-14.5); Red Blood Cell (RBC) Count 3.93 mill/uL (4.20-5.40); White Blood Cell (WBC) Count 9.2 thou/uL (4.8-10.8)
[2021-07-29 04:12] LABS: Anion Gap 12 mmol/L (10-20); BUN (Urea Nitrogen) 22 mg/dL (9.8-20.1); Calc. Creatinine Clearance 188 mL/min (70-130); Calcium 8.9 mg/dL (7.8-10.44); Carbon Dioxide 36 mmol/L (23-31); Chloride 96 mmol/L (98-107); Glucose 103 mg/dL (80-115); Magnesium 2.1 mg/dL (1.6-2.6); Phosphorus 3.9 mg/dL (2.3-4.7); Potassium 4.5 mmol/L (3.5-5.1); Sodium 139 mmol/L (136-145)
[2021-07-29] MEDS: Albuterol 200 PUFF (6.7GM INHALER) INH SCH ×4 (08:17→18:43)
[2021-07-29] MEDS: Zinc Sulfate 220 MG CAP PO SCH (08:18)
[2021-07-29] MEDS: ALPRAZolam 0.5 MG TAB PO SCH ×3 (08:18→20:44)
[2021-07-29] MEDS: Polyethylene Glycol 3350 17 GM Packet PER TUBE SCH (08:18)
[2021-07-29] MEDS: Senokot S 8.6-50 MG TAB PO SCH ×2 (08:18→20:42)
[2021-07-29] MEDS: Ascorbic Acid 500 mg Chewable Tablet PO SCH (08:18)
[2021-07-29] MEDS: Carvedilol 3.125 MG TAB PO SCH ×2 (08:18→17:58)
[2021-07-29] MEDS: Dexamethasone 10 MG/ML VIAL SLOW IVP SCH (08:18)
[2021-07-29] MEDS: Potassium Chloride 20 MEQ TAB PO SCH (08:18)
[2021-07-29] MEDS: Nystatin Powder 15 GM BOT TOP SCH ×2 (08:19→20:45)
[2021-07-29] MEDS: Enoxaparin Sodium 40 MG/0.4 ML SYRINGE SC SCH ×2 (08:19→20:44)
[2021-07-29] MEDS: traMADol HCl 50 MG TAB PO PRN (20:43)
[2021-07-29] MEDS: Simvastatin 10 MG TAB PO SCH (20:43)
[2021-07-30 08:52] LABS: #Eosinphils 0.1 thou/uL (0.0-0.7); #Monocytes 0.5 thou/uL (0.11-0.59); #Neutrophils 7.2 thou/uL (1.40-6.50); %Basophils 0.1 % (0.0-1.0); %Eosinophils 0.8 % (0.0-10.0); %Monocytes 6.1 % (0.0-10.0); Hemoglobin 11.7 g/dL (12.0-16.0); Mean Corpuscular HGB CONC 31.4 g/dL (32.0-36.0); Mean Corpuscular Hemoglobin 31.4 pg (27.0-31.0); Mean Platelet Volume 8.9 fL (7.4-10.4); Platelet Count 119 thou/uL (130-400); RBC Distribution Width 15.1 % (11.5-14.5); Red Blood Cell (RBC) Count 3.73 mill/uL (4.20-5.40); White Blood Cell (WBC) Count 8.8 thou/uL (4.8-10.8)
[2021-07-30 09:05] LABS: Anion Gap 10 mmol/L (10-20); BUN (Urea Nitrogen) 19 mg/dL (9.8-20.1); CRP (Inflammatory) 0.54 mg/dL (= or < 0.5); Calc. Creatinine Clearance 203 mL/min (70-130); Calcium 8.9 mg/dL (7.8-10.44); Carbon Dioxide 36 mmol/L (23-31); Chloride 99 mmol/L (98-107); Glucose 84 mg/dL (80-115); Potassium 4.4 mmol/L (3.5-5.1); Sodium 141 mmol/L (136-145)
[2021-07-30] MEDS: Potassium Chloride 10 MEQ TAB PO SCH (10:05)
[2021-07-30] MEDS: Carvedilol 3.125 MG TAB PO SCH ×2 (10:05→16:31)
[2021-07-30] MEDS: Zinc Sulfate 220 MG CAP PO SCH (10:06)
[2021-07-30] MEDS: traMADol HCl 50 MG TAB PO PRN ×2 (10:06→21:01)
[2021-07-30] MEDS: Senokot S 8.6-50 MG TAB PO SCH ×2 (10:08→21:01)
[2021-07-30] MEDS: Dexamethasone 10 MG/ML VIAL SLOW IVP SCH (10:08)
[2021-07-30] MEDS: Ascorbic Acid 500 mg Chewable Tablet PO SCH (10:08)
[2021-07-30] MEDS: ALPRAZolam 0.5 MG TAB PO SCH ×3 (10:08→21:02)
[2021-07-30] MEDS: Polyethylene Glycol 3350 17 GM Packet PER TUBE SCH (10:10)
[2021-07-30] MEDS: Enoxaparin Sodium 40 MG/0.4 ML SYRINGE SC SCH ×2 (10:10→21:01)
[2021-07-30] MEDS: Albuterol 200 PUFF (6.7GM INHALER) INH SCH ×4 (10:11→19:17)
[2021-07-30] MEDS: Nystatin Powder 15 GM BOT TOP SCH ×2 (10:12→21:03)
[2021-07-30] MEDS: Simvastatin 10 MG TAB PO SCH (21:02)
[2021-07-31 04:20] LABS: #Basophils 0.1 thou/uL (0.0-0.2); #Lymphocytes 0.3 thou/uL (1.20-3.40); #Monocytes 0.3 thou/uL (0.11-0.59); #Neutrophils 7.5 thou/uL (1.40-6.50); %Basophils 1.7 % (0.0-1.0); %Eosinophils 0.5 % (0.0-10.0); %Lymphocytes 3.7 % (21.0-51.0); %Monocytes 3.6 % (0.0-10.0); %Neutrophils 90.6 % (42.0-75.0); Hemoglobin 12.1 g/dL (12.0-16.0); Mean Corpuscular HGB CONC 31.1 g/dL (32.0-36.0); Mean Corpuscular Hemoglobin 31.2 pg (27.0-31.0); Mean Platelet Volume 8.7 fL (7.4-10.4); Platelet Count 107 thou/uL (130-400); RBC Distribution Width 15.1 % (11.5-14.5); Red Blood Cell (RBC) Count 3.87 mill/uL (4.20-5.40); White Blood Cell (WBC) Count 8.3 thou/uL (4.8-10.8)
[2021-07-31 04:27] LABS: Anion Gap 10 mmol/L (10-20); BUN (Urea Nitrogen) 19 mg/dL (9.8-20.1); Calc. Creatinine Clearance 198 mL/min (70-130); Carbon Dioxide 36 mmol/L (23-31); Chloride 98 mmol/L (98-107); Glucose 143 mg/dL (80-115); Sodium 139 mmol/L (136-145)
[2021-07-31] MEDS: Senokot S 8.6-50 MG TAB PO SCH ×2 (08:28→21:09)
[2021-07-31] MEDS: Dexamethasone 10 MG/ML VIAL SLOW IVP SCH (08:28)
[2021-07-31] MEDS: Ascorbic Acid 500 mg Chewable Tablet PO SCH (08:28)
[2021-07-31] MEDS: Potassium Chloride 10 MEQ TAB PO SCH (08:28)
[2021-07-31] MEDS: Zinc Sulfate 220 MG CAP PO SCH (08:29)
[2021-07-31] MEDS: Enoxaparin Sodium 40 MG/0.4 ML SYRINGE SC SCH ×2 (08:29→21:09)
[2021-07-31] MEDS: Polyethylene Glycol 3350 17 GM Packet PER TUBE SCH (08:29)
[2021-07-31] MEDS: Carvedilol 3.125 MG TAB PO SCH ×2 (08:30→17:11)
[2021-07-31] MEDS: ALPRAZolam 0.5 MG TAB PO SCH ×3 (08:30→21:09)
[2021-07-31] MEDS: Albuterol 200 PUFF (6.7GM INHALER) INH SCH ×3 (08:30→15:31)
[2021-07-31] MEDS: Nystatin Powder 15 GM BOT TOP SCH ×2 (08:30→21:15)
[2021-07-31] MEDS: traMADol HCl 50 MG TAB PO PRN (15:30)
[2021-07-31] MEDS: Simvastatin 10 MG TAB PO SCH (21:09)
[2021-08-01 03:55] LABS: #Basophils 0.1 thou/uL (0.0-0.2); #Lymphocytes 1.1 thou/uL (1.20-3.40); #Monocytes 0.7 thou/uL (0.11-0.59); #Neutrophils 8.1 thou/uL (1.40-6.50); %Basophils 0.7 % (0.0-1.0); %Eosinophils 0.5 % (0.0-10.0); %Lymphocytes 10.6 % (21.0-51.0); %Monocytes 6.9 % (0.0-10.0); %Neutrophils 81.3 % (42.0-75.0); Hemoglobin 12.3 g/dL (12.0-16.0); Mean Corpuscular Hemoglobin 31.6 pg (27.0-31.0); Mean Corpuscular Volume 98.8 fL (78.0-98.0); Platelet Count 108 thou/uL (130-400); RBC Distribution Width 15.2 % (11.5-14.5); Red Blood Cell (RBC) Count 3.88 mill/uL (4.20-5.40)
[2021-08-01 04:17] LABS: Anion Gap 11 mmol/L (10-20); BUN (Urea Nitrogen) 21 mg/dL (9.8-20.1); Calc. Creatinine Clearance 203 mL/min (70-130); Calcium 9.3 mg/dL (7.8-10.44); Carbon Dioxide 34 mmol/L (23-31); Chloride 99 mmol/L (98-107); Glucose 106 mg/dL (80-115); Potassium 4.7 mmol/L (3.5-5.1); Sodium 139 mmol/L (136-145)
[2021-08-01] MEDS: Albuterol 200 PUFF (6.7GM INHALER) INH SCH ×5 (07:11→21:36)
[2021-08-01] MEDS: Carvedilol 3.125 MG TAB PO SCH ×2 (08:05→17:00)
[2021-08-01] MEDS: Polyethylene Glycol 3350 17 GM Packet PER TUBE SCH (08:05)
[2021-08-01] MEDS: Zinc Sulfate 220 MG CAP PO SCH (08:08)
[2021-08-01] MEDS: Enoxaparin Sodium 40 MG/0.4 ML SYRINGE SC SCH ×2 (08:08→21:27)
[2021-08-01] MEDS: Dexamethasone 10 MG/ML VIAL SLOW IVP SCH (08:09)
[2021-08-01] MEDS: Ascorbic Acid 500 mg Chewable Tablet PO SCH (08:09)
[2021-08-01] MEDS: Senokot S 8.6-50 MG TAB PO SCH ×2 (08:09→21:26)
[2021-08-01] MEDS: Nystatin Powder 15 GM BOT TOP SCH ×2 (08:09→21:35)
[2021-08-01] MEDS: traMADol HCl 50 MG TAB PO PRN ×2 (08:11→21:25)
[2021-08-01] MEDS: ALPRAZolam 0.25 MG TAB PO PRN (21:26)
[2021-08-01] MEDS: Simvastatin 10 MG TAB PO SCH (21:26)
[2021-08-02] MEDS: Polyethylene Glycol 3350 17 GM Packet PER TUBE SCH (08:43)
[2021-08-02] MEDS: Dexamethasone 10 MG/ML VIAL SLOW IVP SCH (08:53)
[2021-08-02] MEDS: Ascorbic Acid 500 mg Chewable Tablet PO SCH (08:55)
[2021-08-02] MEDS: Enoxaparin Sodium 40 MG/0.4 ML SYRINGE SC SCH ×2 (08:55→20:44)
[2021-08-02] MEDS: Carvedilol 3.125 MG TAB PO SCH ×2 (08:55→17:55)
[2021-08-02] MEDS: Senokot S 8.6-50 MG TAB PO SCH ×2 (08:55→20:42)
[2021-08-02] MEDS: Zinc Sulfate 220 MG CAP PO SCH (08:55)
[2021-08-02] MEDS: Nystatin Powder 15 GM BOT TOP SCH ×2 (08:57→20:44)
[2021-08-02] MEDS: Albuterol 200 PUFF (6.7GM INHALER) INH SCH ×3 (08:59→17:56)
[2021-08-02] MEDS: traMADol HCl 50 MG TAB PO PRN ×2 (12:15→20:43)
[2021-08-02] MEDS: ALPRAZolam 0.25 MG TAB PO PRN (20:44)
[2021-08-02] MEDS: Simvastatin 10 MG TAB PO SCH (20:45)
[2021-08-03] MEDS: Albuterol 200 PUFF (6.7GM INHALER) INH SCH ×5 (02:59→19:00)
[2021-08-03] MEDS: Zinc Sulfate 220 MG CAP PO SCH (11:47)
[2021-08-03] MEDS: Ascorbic Acid 500 mg Chewable Tablet PO SCH (11:47)
[2021-08-03] MEDS: Carvedilol 3.125 MG TAB PO SCH ×2 (11:47→17:30)
[2021-08-03] MEDS: Enoxaparin Sodium 40 MG/0.4 ML SYRINGE SC SCH ×2 (11:47→20:14)
[2021-08-03] MEDS: ALPRAZolam 0.25 MG TAB PO PRN ×2 (11:47→20:24)
[2021-08-03] MEDS: Dexamethasone 10 MG/ML VIAL SLOW IVP SCH (11:48)
[2021-08-03] MEDS: Polyethylene Glycol 3350 17 GM Packet PER TUBE SCH (11:49)
[2021-08-03] MEDS: Senokot S 8.6-50 MG TAB PO SCH ×2 (11:49→20:14)
[2021-08-03] MEDS: Nystatin Powder 15 GM BOT TOP SCH ×2 (11:52→22:51)
[2021-08-03] MEDS: Simvastatin 10 MG TAB PO SCH (22:50)
[2021-08-04] MEDS: Albuterol 200 PUFF (6.7GM INHALER) INH SCH ×4 (06:13→21:52)
[2021-08-04] MEDS: Dexamethasone 10 MG/ML VIAL SLOW IVP SCH (09:21)
[2021-08-04] MEDS: Senokot S 8.6-50 MG TAB PO SCH ×2 (09:22→21:47)
[2021-08-04] MEDS: Carvedilol 3.125 MG TAB PO SCH ×2 (09:22→18:05)
[2021-08-04] MEDS: Enoxaparin Sodium 40 MG/0.4 ML SYRINGE SC SCH ×2 (09:22→21:48)
[2021-08-04] MEDS: Zinc Sulfate 220 MG CAP PO SCH (09:22)
[2021-08-04] MEDS: Ascorbic Acid 500 mg Chewable Tablet PO SCH (09:22)
[2021-08-04] MEDS: Nystatin Powder 15 GM BOT TOP SCH ×2 (09:23→21:47)
[2021-08-04] MEDS: Polyethylene Glycol 3350 17 GM Packet PER TUBE SCH (09:24)
[2021-08-04 10:33] VITALS: BMI 69.2
[2021-08-04] MEDS: traMADol HCl 50 MG TAB PO PRN ×2 (11:52→23:18)
[2021-08-04 16:13] LABS: SARS-CoV-2 NAA Rapid Test DETECTED (NotDetected)
[2021-08-04] MEDS: Simvastatin 10 MG TAB PO SCH (21:47)
[2021-08-05 06:59] LABS: #Eosinphils 0.3 thou/uL (0.0-0.7); #Lymphocytes 1.4 thou/uL (1.20-3.40); #Monocytes 0.5 thou/uL (0.11-0.59); #Neutrophils 4.8 thou/uL (1.40-6.50); %Basophils 0.3 % (0.0-1.0); %Eosinophils 4.6 % (0.0-10.0); %Lymphocytes 20.4 % (21.0-51.0); %Neutrophils 67.8 % (42.0-75.0); Hemoglobin 12.1 g/dL (12.0-16.0); Mean Corpuscular HGB CONC 31.4 g/dL (32.0-36.0); Mean Corpuscular Hemoglobin 31.7 pg (27.0-31.0); Mean Platelet Volume 8.9 fL (7.4-10.4); Platelet Count 90 thou/uL (130-400); RBC Distribution Width 15.3 % (11.5-14.5); Red Blood Cell (RBC) Count 3.83 mill/uL (4.20-5.40); White Blood Cell (WBC) Count 7.1 thou/uL (4.8-10.8)
[2021-08-05 07:19] LABS: Anion Gap 11 mmol/L (10-20); BUN (Urea Nitrogen) 18 mg/dL (9.8-20.1); Calc. Creatinine Clearance 215 mL/min (70-130); Carbon Dioxide 30 mmol/L (23-31); Glucose 82 mg/dL (80-115); Potassium 4.4 mmol/L (3.5-5.1)
[2021-08-05] MEDS ORDERED: hydrALAZINE 20 MG/ML VIAL SLOW IVP PRN (07:20)
[2021-08-05 08:03] LABS: Chloride 103 mmol/L (98-107); Sodium 140 mmol/L (136-145)
[2021-08-05] MEDS: Dexamethasone 10 MG/ML VIAL SLOW IVP SCH (08:38)
[2021-08-05] MEDS: Albuterol 200 PUFF (6.7GM INHALER) INH SCH ×4 (08:38→21:01)
[2021-08-05] MEDS: Senokot S 8.6-50 MG TAB PO SCH ×2 (08:39→20:54)
[2021-08-05] MEDS: Ascorbic Acid 500 mg Chewable Tablet PO SCH (08:39)
[2021-08-05] MEDS: Carvedilol 3.125 MG TAB PO SCH ×3 (08:39→17:19)
[2021-08-05] MEDS: Enoxaparin Sodium 40 MG/0.4 ML SYRINGE SC SCH ×2 (08:39→20:55)
[2021-08-05] MEDS: Polyethylene Glycol 3350 17 GM Packet PER TUBE SCH (08:40)
[2021-08-05] MEDS: Nystatin Powder 15 GM BOT TOP SCH ×2 (08:40→20:55)
[2021-08-05] MEDS: Zinc Sulfate 220 MG CAP PO SCH (08:40)
[2021-08-05] MEDS: Simvastatin 10 MG TAB PO SCH (20:54)
[2021-08-05] MEDS: ALPRAZolam 0.25 MG TAB PO PRN (22:56)
[2021-08-06] MEDS: Albuterol 200 PUFF (6.7GM INHALER) INH SCH ×4 (07:07→20:27)
[2021-08-06] MEDS: traMADol HCl 50 MG TAB PO PRN (08:49)
[2021-08-06] MEDS: Zinc Sulfate 220 MG CAP PO SCH (08:52)
[2021-08-06] MEDS: Carvedilol 3.125 MG TAB PO SCH ×2 (08:52→17:36)
[2021-08-06] MEDS: predniSONE 20 MG TAB PO SCH (08:52)
[2021-08-06] MEDS: Ascorbic Acid 500 mg Chewable Tablet PO SCH (08:52)
[2021-08-06] MEDS: Enoxaparin Sodium 40 MG/0.4 ML SYRINGE SC SCH ×2 (08:52→20:24)
[2021-08-06] MEDS: Nystatin Powder 15 GM BOT TOP SCH ×2 (08:54→20:26)
[2021-08-06] MEDS: Senokot S 8.6-50 MG TAB PO SCH ×2 (13:50→20:26)
[2021-08-06] MEDS: Polyethylene Glycol 3350 17 GM Packet PER TUBE SCH (13:51)
[2021-08-06] MEDS: Simvastatin 10 MG TAB PO SCH (20:24)
[2021-08-06] MEDS: ALPRAZolam 0.25 MG TAB PO PRN (22:37)
[2021-08-07] MEDS: Albuterol 200 PUFF (6.7GM INHALER) INH SCH ×4 (07:09→19:12)
[2021-08-07] MEDS: traMADol HCl 50 MG TAB PO PRN ×2 (08:09→17:50)
[2021-08-07] MEDS: Ascorbic Acid 500 mg Chewable Tablet PO SCH (08:09)
[2021-08-07] MEDS: Senokot S 8.6-50 MG TAB PO SCH ×2 (08:10→19:34)
[2021-08-07] MEDS: Zinc Sulfate 220 MG CAP PO SCH (08:10)
[2021-08-07] MEDS: Carvedilol 3.125 MG TAB PO SCH ×2 (08:10→17:50)
[2021-08-07] MEDS: Polyethylene Glycol 3350 17 GM Packet PER TUBE SCH (08:10)
[2021-08-07] MEDS: Enoxaparin Sodium 40 MG/0.4 ML SYRINGE SC SCH ×2 (08:10→19:34)
[2021-08-07] MEDS: predniSONE 20 MG TAB PO SCH (08:10)
[2021-08-07] MEDS: Nystatin Powder 15 GM BOT TOP SCH (08:11)
[2021-08-07] MEDS: ALPRAZolam 0.25 MG TAB PO PRN (19:29)
[2021-08-07] MEDS: Simvastatin 10 MG TAB PO SCH (19:29)
[2021-08-07 22:13] VITALS: BP 146/81; TEMP 98.4
== END 2021-08-07 20:09 | DRG 177 ==
LOC: ERS 15:16 → ERHOLD 17:39 → 2SE 21:39 → 2SW 07-17 17:41 → IMCU/EMU 07-19 03:50 → T4-A 08-03 20:42
PROVIDERS: ADMIT Internal Medicine; ATTEND Internal Medicine
PROC: 8E0ZXY6 Isolation (ICD-10-PCS; principal; 2021-07-14)
PROC: XW033E5 Introduction of Remdesivir Anti-infective into Peripheral Vein, Percutaneous Approach, New Technology Group 5 (ICD-10-PCS; 2021-07-15)
DX: U07.1 COVID-19 (principal); J12.82 Pneumonia due to coronavirus disease 2019; J96.21 Acute and chronic respiratory failure with hypoxia; J44.0 Chronic obstructive pulmonary disease with (acute) lower respiratory infection; J44.1 Chronic obstructive pulmonary disease with (acute) exacerbation; N17.9 Acute kidney failure, unspecified; Z68.44 Body mass index [BMI] 60.0-69.9, adult; E87.0 Hyperosmolality and hypernatremia; I10 Essential (primary) hypertension; E66.01 Morbid (severe) obesity due to excess calories; G25.81 Restless legs syndrome; F32.A Depression, unspecified; F41.9 Anxiety disorder, unspecified; E78.00 Pure hypercholesterolemia, unspecified; E87.6 Hypokalemia; D64.9 Anemia, unspecified; K21.9 Gastro-esophageal reflux disease without esophagitis; L89.159 Pressure ulcer of sacral region, unspecified stage; G47.33 Obstructive sleep apnea (adult) (pediatric); E11.9 Type 2 diabetes mellitus without complications; Z91.041 Radiographic dye allergy status; Z88.0 Allergy status to penicillin; Z88.8 Allergy status to other drugs, medicaments and biological substances; Z86.73 Personal history of transient ischemic attack (TIA), and cerebral infarction without residual deficits; Z90.49 Acquired absence of other specified parts of digestive tract; Z90.710 Acquired absence of both cervix and uterus; Z87.440 Personal history of urinary (tract) infections; Z99.3 Dependence on wheelchair; Z93.0 Tracheostomy status; E87.5 Hyperkalemia; E83.42 Hypomagnesemia
CPT/HCPCS: 36415; 36416; 36600; 71045; 80048; 80053; 80076; 81001; 82553; 82728; 82805; 83605; 83615; 83735; 83880; 84100; 84145; 84484; 85025; 86140; 93005; 94640; J0248; J0360; J1100; J1650; J1940; J1956; J7050; J7512; Q0177; U0002

== ENCOUNTER 2021-11-23 15:22 | Emergency (ER) | payer OTHER, MEDICARE ==
[2021-11-23] MEDS ORDERED: Morphine 4 MG/ML VIAL ONE (16:34)
[2021-11-23] MEDS ORDERED: Albuterol Sulfate 1.25 MG/3 ML NEB ONE (17:19)
== END 2021-11-23 19:54 | disposition home or self-care (01) ==
LOC: ERS 15:22
DX: M19.012 Primary osteoarthritis, left shoulder (principal); E11.9 Type 2 diabetes mellitus without complications; I10 Essential (primary) hypertension; E78.5 Hyperlipidemia, unspecified; E66.9 Obesity, unspecified; Z79.899 Other long term (current) drug therapy; Z86.73 Personal history of transient ischemic attack (TIA), and cerebral infarction without residual deficits; X58.XXXA Exposure to other specified factors, initial encounter
CPT/HCPCS: 96372; J2270

== ENCOUNTER 2021-11-25 15:53 | Emergency (ER) | payer OTHER, MEDICARE ==
[2021-11-25 17:28] LABS: #Eosinphils 0.4 thou/uL (0.0-0.7); #Lymphocytes 1.3 thou/uL (1.20-3.40); #Monocytes 0.6 thou/uL (0.11-0.59); #Neutrophils 6.5 thou/uL (1.40-6.50); %Basophils 0.1 % (0.0-1.0); %Eosinophils 4.1 % (0.0-10.0); %Lymphocytes 14.9 % (21.0-51.0); %Monocytes 6.7 % (0.0-10.0); %Neutrophils 74.2 % (42.0-75.0); Hemoglobin 10.8 g/dL (12.0-16.0); Mean Corpuscular HGB CONC 30.2 g/dL (32.0-36.0); Mean Corpuscular Hemoglobin 31.1 pg (27.0-31.0); Mean Platelet Volume 7.4 fL (7.4-10.4); Platelet Count 162 thou/uL (130-400); RBC Distribution Width 13.9 % (11.5-14.5); Red Blood Cell (RBC) Count 3.46 mill/uL (4.20-5.40); White Blood Cell (WBC) Count 8.8 thou/uL (4.8-10.8)
[2021-11-25 17:53] LABS: ALT (SGPT) 14 U/L (8-55); AST (SGOT) 16 U/L (5-34); Albumin 3.2 g/dL (3.4-4.8); Alkaline Phosphatase 80 U/L (40-110); Anion Gap 13 mmol/L (10-20); BUN (Urea Nitrogen) 14 mg/dL (9.8-20.1); Bilirubin, Total 0.8 mg/dL (0.2-1.2); Calc. Creatinine Clearance 0 mL/min (70-130); Calcium 9.1 mg/dL (7.8-10.44); Carbon Dioxide 35 mmol/L (23-31); Chloride 94 mmol/L (98-107); Globulin 4.5 g/dL (2.4-3.5); Glucose 101 mg/dL (80-115); Potassium 4.2 mmol/L (3.5-5.1); Protein, Total 7.7 g/dL (5.8-8.1); Sodium 138 mmol/L (136-145)
[2021-11-25] MEDS ORDERED: Furosemide 40 MG/4 ML VIAL ONE (20:48)
== END 2021-11-25 22:50 ==
LOC: ERS 15:53
DX: R06.00 Dyspnea, unspecified (principal); M79.602 Pain in left arm; E78.5 Hyperlipidemia, unspecified; Z86.73 Personal history of transient ischemic attack (TIA), and cerebral infarction without residual deficits; G47.30 Sleep apnea, unspecified; E66.9 Obesity, unspecified; K21.9 Gastro-esophageal reflux disease without esophagitis; E11.9 Type 2 diabetes mellitus without complications; I10 Essential (primary) hypertension; Z79.899 Other long term (current) drug therapy; Z79.52 Long term (current) use of systemic steroids
CPT/HCPCS: 36415; 71045; 80053; 84484; 85025; 93005; 96374; J1940; J7620

== ENCOUNTER 2022-05-16 06:11 | Emergency (ER) | payer MEDICARE, OTHER ==
[2022-05-16] MEDS ORDERED: Magnesium 2 GM/50 ML BAG (IN WATER) ONE (06:51)
[2022-05-16 08:36] LABS: SARS-CoV-2 NAA Rapid Test Not Detected (NotDetected)
[2022-05-16 08:43] LABS: #Eosinphils 0.2 thou/uL (0.0-0.7); #Monocytes 0.2 thou/uL (0.11-0.59); #Neutrophils 7.2 thou/uL (1.40-6.50); %Basophils 0.1 % (0.0-1.0); %Eosinophils 1.9 % (0.0-10.0); %Lymphocytes 11.2 % (21.0-51.0); %Monocytes 2.2 % (0.0-10.0); %Neutrophils 84.7 % (42.0-75.0); Hemoglobin 9.6 g/dL (12.0-16.0); Mean Corpuscular HGB CONC 30.5 g/dL (32.0-36.0); Mean Corpuscular Hemoglobin 29.6 pg (27.0-31.0); Mean Platelet Volume 6.6 fL (7.4-10.4); Platelet Count 187 10x3/uL (130-400); RBC Distribution Width 14.2 % (11.5-14.5); Red Blood Cell (RBC) Count 3.23 mill/uL (4.20-5.40); White Blood Cell (WBC) Count 8.5 10x3/uL (4.8-10.8)
[2022-05-16 09:04] LABS: ALT (SGPT) 7 U/L (8-55); AST (SGOT) 12 U/L (5-34); Albumin 3.5 g/dL (3.4-4.8); Alkaline Phosphatase 79 U/L (40-110); BUN (Urea Nitrogen) 11 mg/dL (9.8-20.1); Bilirubin, Total 0.6 mg/dL (0.2-1.2); Calc. Creatinine Clearance 0 mL/min (70-130); Estimated GFR 76; Globulin 4.4 g/dL (2.4-3.5); Glucose 117 mg/dL (80-115); Protein, Total 7.9 g/dL (5.8-8.1)
[2022-05-16 09:15] LABS: Anion Gap 16 mmol/L (10-20); Carbon Dioxide 38 mmol/L (23-31); Chloride 92 mmol/L (98-107); Potassium 3.9 mmol/L (3.5-5.1); Sodium 142 mmol/L (136-145)
== END 2022-05-16 10:25 ==
LOC: ERS 06:11
DX: J45.901 Unspecified asthma with (acute) exacerbation (principal); E11.9 Type 2 diabetes mellitus without complications; I11.0 Hypertensive heart disease with heart failure; I50.9 Heart failure, unspecified; Z79.899 Other long term (current) drug therapy; Z20.822 Contact with and (suspected) exposure to COVID-19
CPT/HCPCS: 0240U; 71045; 80053; 83735; 83880; 84484; 85025; 93005; 94640; 36415; 96374; J3475; J7620

== ENCOUNTER 2022-06-13 23:22 | Emergency (ER) | payer MEDICARE, OTHER ==
[2022-06-14 00:25] LABS: #Eosinphils 0.3 thou/uL (0.0-0.7); #Lymphocytes 1.6 thou/uL (1.20-3.40); #Monocytes 0.4 thou/uL (0.11-0.59); #Neutrophils 4.2 thou/uL (1.40-6.50); %Basophils 0.6 % (0.0-1.0); %Eosinophils 4.9 % (0.0-10.0); %Lymphocytes 23.5 % (21.0-51.0); %Monocytes 6.6 % (0.0-10.0); %Neutrophils 64.4 % (42.0-75.0); Hemoglobin 8.8 g/dL (12.0-16.0); Mean Corpuscular Volume 93.5 fl (78.0-98.0); Mean Platelet Volume 6.9 fL (7.4-10.4); Platelet Count 165 10x3/uL (130-400); RBC Distribution Width 14.3 % (11.5-14.5); Red Blood Cell (RBC) Count 3.04 mill/uL (4.20-5.40); White Blood Cell (WBC) Count 6.6 10x3/uL (4.8-10.8)
[2022-06-14 00:52] LABS: ALT (SGPT) Less than 7 U/L (8-55); AST (SGOT) 9 U/L (5-34); Albumin 3.2 g/dL (3.4-4.8); Alkaline Phosphatase 76 U/L (40-110); BUN (Urea Nitrogen) 12 mg/dL (9.8-20.1); Bilirubin, Total 0.3 mg/dL (0.2-1.2); Calc. Creatinine Clearance 0 mL/min (70-130); Calcium 8.8 mg/dL (7.8-10.44); Estimated GFR 88; Globulin 3.7 g/dL (2.4-3.5); Glucose 107 mg/dL (80-115); Protein, Total 6.9 g/dL (5.8-8.1)
[2022-06-14 01:17] LABS: Carbon Dioxide 32 mmol/L (23-31); Chloride 97 mmol/L (98-107); Potassium 3.6 mmol/L (3.5-5.1); Sodium 142 mmol/L (136-145)
[2022-06-14 02:26] LABS: Anion Gap 17 mmol/L (10-20)
== END 2022-06-14 02:40 | disposition home or self-care (01) ==
LOC: ERS 23:22
DX: N93.9 Abnormal uterine and vaginal bleeding, unspecified (principal); K43.9 Ventral hernia without obstruction or gangrene; D64.9 Anemia, unspecified; I10 Essential (primary) hypertension
CPT/HCPCS: 36415; 51702; 80053; 85025; 86850; 86900; 86901; 93005

== ENCOUNTER 2022-09-19 04:46 | Emergency (ER) | payer MEDICARE, MEDICAID ==
[2022-09-19 05:37] LABS: #Eosinphils 0.4 thou/uL (0.0-0.7); #Lymphocytes 1.5 thou/uL (1.20-3.40); #Monocytes 0.6 thou/uL (0.11-0.59); #Neutrophils 5.5 thou/uL (1.40-6.50); %Basophils 0.4 % (0.0-1.0); %Eosinophils 5.4 % (0.0-10.0); %Lymphocytes 18.9 % (21.0-51.0); %Neutrophils 67.4 % (42.0-75.0); Mean Corpuscular HGB CONC 30.9 g/dL (32.0-36.0); Mean Corpuscular Hemoglobin 27.6 pg (27.0-31.0); Mean Corpuscular Volume 89.4 fl (78.0-98.0); Platelet Count 171 10x3/uL (130-400); Red Blood Cell (RBC) Count 2.88 mill/uL (4.20-5.40); White Blood Cell (WBC) Count 8.1 10x3/uL (4.8-10.8)
[2022-09-19 06:01] LABS: ALT (SGPT) Less than 7 U/L (8-55); AST (SGOT) 9 U/L (5-34); Albumin 3.2 g/dL (3.4-4.8); Alkaline Phosphatase 78 U/L (40-110); BUN (Urea Nitrogen) 18 mg/dL (9.8-20.1); Bilirubin, Total 0.4 mg/dL (0.2-1.2); Calc. Creatinine Clearance 0 mL/min (70-130); Calcium 8.7 mg/dL (7.8-10.44); Estimated GFR 64; Globulin 4.9 g/dL (2.4-3.5); Glucose 102 mg/dL (80-115); Protein, Total 8.1 g/dL (5.8-8.1)
[2022-09-19 06:14] LABS: Anion Gap 14 mmol/L (10-20); Carbon Dioxide 34 mmol/L (23-31); Chloride 94 mmol/L (98-107); Sodium 138 mmol/L (136-145)
== END 2022-09-19 09:43 | disposition home or self-care (01) ==
LOC: ERS 04:46
DX: R06.00 Dyspnea, unspecified (principal); E11.9 Type 2 diabetes mellitus without complications; E78.5 Hyperlipidemia, unspecified; I10 Essential (primary) hypertension; K21.9 Gastro-esophageal reflux disease without esophagitis
CPT/HCPCS: 36415; 71045; 80053; 83880; 84484; 85025; 93005

== ENCOUNTER 2022-09-23 08:14 | Inpatient (IN) | payer MEDICARE, OTHER, MEDICAID ==
[2022-09-23 11:26] VITALS: BMI 79.2
[2022-09-23] MEDS ORDERED: Bisacodyl 10 MG SUPP PR PRN (13:36)
[2022-09-23] MEDS ORDERED: Nystatin Powder 15 GM BOT TOP PRN (13:46)
[2022-09-23] MEDS ORDERED: Furosemide 40 MG/4 ML VIAL SLOW IVP SCH (14:00)
[2022-09-23] MEDS ORDERED: HumaLOG 300 UNITS/3 ML VIAL SC PRN (14:06)
[2022-09-23] MEDS ORDERED: Dextrose 50% Abboject 50 ML SYRINGE SLOW IVP PRN (14:06)
[2022-09-23] MEDS ORDERED: Dextrose 5% in Water 1,000 ML IV PRN (14:06)
[2022-09-23] MEDS: cefTRIAXone\\ROCEPHIN 1 GM in Sodium Chloride 0.9% 100 ML IVPB SCH (14:30)
[2022-09-23 14:47] LABS: Troponin I 0.018 ng/mL (< 0.028)
[2022-09-23 14:57] LABS: Actual Bicarbonate (HCO3v) 39 mEq/L (22-28); Base Excess 12.1 mEq/L (-2.0 to +3.0); Chloride (VBG) 93 mmol/L (98-106); Hemoglobin (Hb) 9.2 g/dL (11.7-16.1); Potassium (VBG) 3.76 mmol/L (3.70-5.30); pH (venous) 7.37 (7.32-7.43)
[2022-09-23] MEDS: Ipratropium 200 Puff Oral Inhaler INH SCH ×2 (15:00→19:24)
[2022-09-23] MEDS: Azithromycin 500 MG in Sodium Chloride 0.9% 250 ML 250 ML IVPB SCH (15:29)
[2022-09-23 16:23] LABS: Actual Bicarbonate (HCO3a) 42.2 mEq/L (22-28); Base Excess (BEa) 15.1 mEq/L (-2.0 to +3.0); Calcium, Ionized (arterial) 1.09 mmol/L (1.12-1.30); Carboxyhemoglobin (COHb) 1.4 gm% (0.0-3.0); Hemoglobin (Hb) 8.8 g/dL (12.0-16.0); Potassium - ABG Lab 3.58 mmol/L (3.70-5.30); pH, Arterial 7.39 (7.35-7.45)
[2022-09-23] MEDS: Albuterol HFA (OR) 200 PUFF INH INH SCH ×2 (17:33→19:23)
[2022-09-23 18:06] LABS: Legionella Urinary Ag Negative (Negative); Strep pneumo Urine Ag NEGATIVE (NEGATIVE)
[2022-09-23] MEDS ORDERED: Ondansetron PF 4 MG/2 ML Vial IVP SCH (18:45)
[2022-09-23] MEDS: Mometasone 100 MCG/Formoterol 5 MCG 120 PUFF INHALER INH SCH (19:26)
[2022-09-23] MEDS ORDERED: Ipratropium/Albuterol 3 ML NEB NEB PRN (19:42)
[2022-09-23] MEDS: traMADol HCl 50 MG TAB PO PRN (20:23)
[2022-09-23 20:31] LABS: Troponin I 0.016 ng/mL (< 0.028)
[2022-09-23] MEDS ORDERED: Ondansetron PF 4 MG/2 ML Vial IVP PRN (23:59)
[2022-09-24 03:53] LABS: #Lymphocytes 0.9 thou/uL (1.20-3.40); #Monocytes 0.4 thou/uL (0.11-0.59); #Neutrophils 13.7 thou/uL (1.40-6.50); %Basophils 0.1 % (0.0-1.0); %Lymphocytes 6.2 % (21.0-51.0); %Monocytes 2.4 % (0.0-10.0); %Neutrophils 91.4 % (42.0-75.0); Hemoglobin 7.5 g/dL (12.0-16.0); Mean Corpuscular Hemoglobin 27.2 pg (27.0-31.0); Mean Corpuscular Volume 90.7 fl (78.0-98.0); Mean Platelet Volume 7.1 fL (7.4-10.4); Platelet Count 162 10x3/uL (130-400); RBC Distribution Width 15.9 % (11.5-14.5); Red Blood Cell (RBC) Count 2.76 mill/uL (4.20-5.40)
[2022-09-24 03:57] LABS: Hemoglobin A1c 5.3 % (4.0-6.0)
[2022-09-24 04:10] LABS: ALT (SGPT) 8 U/L (8-55); AST (SGOT) 14 U/L (5-34); Albumin 3.1 g/dL (3.4-4.8); Alkaline Phosphatase 75 U/L (40-110); BUN (Urea Nitrogen) 16 mg/dL (9.8-20.1); Bilirubin, Direct 0.1 mg/dL (0.1-0.3); Bilirubin, Total 0.2 mg/dL (0.2-1.2); Calc. Creatinine Clearance 178 mL/min (70-130); Calcium 8.7 mg/dL (7.8-10.44); Cardiac Risk 2.4 (Less than 4.5); Cholesterol 134 mg/dl (< 200 Desired); Estimated GFR 72; Glucose 127 mg/dL (80-115); HDL Cholesterol 57 mg/dL (>60 Neg Risk); LDL Cholesterol, Calculated 67 mg/dL; Magnesium 2.1 mg/dL (1.6-2.6); Triglycerides 49 mg/dL (Less than 150)
[2022-09-24 04:19] LABS: Anion Gap 13 mmol/L (10-20); Carbon Dioxide 37 mmol/L (23-31); Chloride 94 mmol/L (98-107); Potassium 3.8 mmol/L (3.5-5.1); Sodium 140 mmol/L (136-145)
[2022-09-24] MEDS ORDERED: Furosemide 40 MG/4 ML VIAL SLOW IVP SCH (06:00)
[2022-09-24] MEDS: Ipratropium 200 Puff Oral Inhaler INH SCH ×4 (07:43→18:28)
[2022-09-24] MEDS: Albuterol HFA (OR) 200 PUFF INH INH SCH ×4 (07:44→18:28)
[2022-09-24] MEDS: Mometasone 100 MCG/Formoterol 5 MCG 120 PUFF INHALER INH SCH ×2 (07:56→18:29)
[2022-09-24] MEDS: methylPREDNISolone Sod Succ 40 MG VIAL IVP SCH (08:10)
[2022-09-24] MEDS: guaiFENesin ER 600 MG TAB PO SCH ×2 (08:10→20:04)
[2022-09-24 12:39] LABS: Hemoglobin 8.3 g/dL (12.0-16.0)
[2022-09-24] MEDS: cefTRIAXone\\ROCEPHIN 1 GM in Sodium Chloride 0.9% 100 ML IVPB SCH (13:29)
[2022-09-24] MEDS: Azithromycin 500 MG in Sodium Chloride 0.9% 250 ML 250 ML IVPB SCH (14:43)
[2022-09-24] MEDS: traMADol HCl 50 MG TAB PO PRN (17:38)
[2022-09-24] MEDS: Famotidine 20 MG TAB PER TUBE SCH (20:04)
[2022-09-25 04:35] LABS: BUN (Urea Nitrogen) 23 mg/dL (9.8-20.1); Calc. Creatinine Clearance 176 mL/min (70-130); Calcium 9.1 mg/dL (7.8-10.44); Estimated GFR 71; Glucose 88 mg/dL (80-115); Magnesium 2.4 mg/dL (1.6-2.6)
[2022-09-25 04:43] LABS: Anion Gap 16 mmol/L (10-20); Carbon Dioxide 35 mmol/L (23-31); Chloride 95 mmol/L (98-107); Sodium 142 mmol/L (136-145)
[2022-09-25 05:06] LABS: Anisocytosis SLIGHT = 6-15 cells (100X) (0-5/hpf); Band 10 % (5-11); Hemoglobin 8.4 g/dL (12.0-16.0); Hypochromia SLIGHT = 6-15 cells (100X) (0-5/hpf); Lymphocytes 5 % (21-51); MDiff Complete? YES; Mean Corpuscular HGB CONC 29.7 g/dL (32.0-36.0); Mean Corpuscular Hemoglobin 27.1 pg (27.0-31.0); Mean Corpuscular Volume 91.1 fl (78.0-98.0); Mean Platelet Volume 7.4 fL (7.4-10.4); Monocytes 3 % (0-10); Neutrophil 82 % (42-75); Platelet Count 162 10x3/uL (130-400); Platelet Morphology Comment Appears Adequate; Polychromasia SLIGHT = 2-3 cells (100X) (0-2/hpf); RBC Distribution Width 15.6 % (11.5-14.5); Red Blood Cell (RBC) Count 3.09 mill/uL (4.20-5.40); Reflex for Review?? NO; Tear Drops SLIGHT = 2-5 cells (100X) (0-1/hpf); White Blood Cell (WBC) Count 13.3 10x3/uL (4.8-10.8)
[2022-09-25] MEDS: traMADol HCl 50 MG TAB PO PRN ×3 (05:39→22:22)
[2022-09-25] MEDS: Levothyroxine Sodium 75 MCG TAB PER TUBE SCH (05:40)
[2022-09-25] MEDS: Ipratropium 200 Puff Oral Inhaler INH SCH ×4 (08:48→19:02)
[2022-09-25] MEDS: Albuterol HFA (OR) 200 PUFF INH INH SCH ×4 (08:48→19:02)
[2022-09-25] MEDS: Mometasone 100 MCG/Formoterol 5 MCG 120 PUFF INHALER INH SCH ×2 (08:48→19:04)
[2022-09-25] MEDS: methylPREDNISolone Sod Succ 40 MG VIAL IVP SCH (09:59)
[2022-09-25] MEDS: guaiFENesin ER 600 MG TAB PO SCH ×2 (10:02→20:01)
[2022-09-25] MEDS: Furosemide 40 MG/4 ML VIAL SLOW IVP SCH (10:02)
[2022-09-25] MEDS: Famotidine 20 MG TAB PER TUBE SCH ×2 (10:03→20:01)
[2022-09-25] MEDS ORDERED: methylPREDNISolone Sod Succ 40 MG VIAL IVP SCH (11:45)
[2022-09-25] MEDS: ALPRAZolam 0.25 MG TAB PO PRN (14:01)
[2022-09-25] MEDS ORDERED: Non-Formulary Item 1 EACH (Albuterol Sulfate [Albuterol Sulfate Neb] 0.63 MG/3 ML Vial.Ne NEB SCH (18:00)
[2022-09-25] MEDS: Carvedilol 3.125 MG TAB PO SCH (20:01)
[2022-09-25] MEDS ORDERED: VITE AC PO SCH (21:00)
[2022-09-25] MEDS ORDERED: Simvastatin 20 MG TAB PO SCH (21:00)
[2022-09-25] MEDS ORDERED: ASCORBATE SOD PO SCH (21:00)
[2022-09-25] MEDS ORDERED: ARGININE PO SCH (21:00)
[2022-09-25] MEDS ORDERED: Non-Formulary Item 1 EACH (Amino Acids/Protein Hydrolys [Pro-Stat Awc Liquid] 887 ML Bott PO SCH (21:00)
[2022-09-25] MEDS ORDERED: [UNRECOGNIZED DRUG - OTHER] PO SCH (21:00)
[2022-09-26] MEDS: Methyl Salicylate/Menthol 85 GM TUBE TOP PRN ×2 (04:14→20:25)
[2022-09-26] MEDS ORDERED: Non-Formulary Item 1 EACH (Levothyroxine Sodium [Levothyroxine] 75 MCG Capsule) PO SCH (06:00)
[2022-09-26] MEDS ORDERED: Cyclobenzaprine 10 MG TAB PO SCH (06:00)
[2022-09-26] MEDS: traMADol HCl 50 MG TAB PO PRN ×3 (06:06→20:26)
[2022-09-26] MEDS: Levothyroxine Sodium 75 MCG TAB PER TUBE SCH (06:10)
[2022-09-26] MEDS: Mometasone 100 MCG/Formoterol 5 MCG 120 PUFF INHALER INH SCH ×2 (07:04→20:03)
[2022-09-26] MEDS: Ipratropium 200 Puff Oral Inhaler INH SCH ×4 (07:10→20:03)
[2022-09-26] MEDS: Albuterol HFA (OR) 200 PUFF INH INH SCH ×4 (07:11→20:02)
[2022-09-26] MEDS: guaiFENesin ER 600 MG TAB PO SCH ×2 (08:46→20:25)
[2022-09-26] MEDS: Aspirin Chewable 81 MG TAB PO SCH (08:46)
[2022-09-26] MEDS: Ferrous Sulfate 325 MG TAB PO SCH (08:46)
[2022-09-26] MEDS: Carvedilol 3.125 MG TAB PO SCH ×2 (08:46→20:25)
[2022-09-26] MEDS: Potassium Chloride 20 MEQ TAB PO SCH (08:46)
[2022-09-26] MEDS: Famotidine 20 MG TAB PER TUBE SCH ×2 (08:46→20:26)
[2022-09-26] MEDS: Furosemide 40 MG/4 ML VIAL SLOW IVP SCH (08:47)
[2022-09-26] MEDS: Polyethylene Glycol 3350 17 GM Packet PO SCH (08:49)
[2022-09-26] MEDS ORDERED: methylPREDNISolone Sod Succ 40 MG VIAL IVP SCH (09:00)
[2022-09-26] MEDS ORDERED: Losartan 25 MG TAB PO SCH (10:45)
[2022-09-26 11:19] LABS: BUN (Urea Nitrogen) 30 mg/dL (9.8-20.1); Calc. Creatinine Clearance 173 mL/min (70-130); Calcium 9.1 mg/dL (7.8-10.44); Estimated GFR 70; Glucose 63 mg/dL (80-115); Magnesium 2.4 mg/dL (1.6-2.6)
[2022-09-26 11:28] LABS: Anion Gap 18 mmol/L (10-20); Carbon Dioxide 36 mmol/L (23-31); Chloride 93 mmol/L (98-107); Potassium 3.9 mmol/L (3.5-5.1); Sodium 143 mmol/L (136-145)
[2022-09-26 11:49] LABS: #Lymphocytes 1.5 thou/uL (1.20-3.40); #Monocytes 0.5 thou/uL (0.11-0.59); #Neutrophils 6.2 thou/uL (1.40-6.50); %Basophils 0.1 % (0.0-1.0); %Eosinophils 0.4 % (0.0-10.0); %Lymphocytes 18.2 % (21.0-51.0); %Monocytes 5.9 % (0.0-10.0); %Neutrophils 75.4 % (42.0-75.0); Hemoglobin 8.1 g/dL (12.0-16.0); Mean Corpuscular Hemoglobin 26.6 pg (27.0-31.0); Mean Corpuscular Volume 88.6 fl (78.0-98.0); Mean Platelet Volume 7.8 fL (7.4-10.4); Platelet Count 183 10x3/uL (130-400); RBC Distribution Width 15.9 % (11.5-14.5); Red Blood Cell (RBC) Count 3.05 mill/uL (4.20-5.40); White Blood Cell (WBC) Count 8.2 10x3/uL (4.8-10.8)
[2022-09-26] MEDS ORDERED: Simvastatin 10 MG TAB PO SCH (21:00)
[2022-09-27] MEDS: Levothyroxine Sodium 75 MCG TAB PER TUBE SCH (06:04)
[2022-09-27 06:55] LABS: BUN (Urea Nitrogen) 30 mg/dL (9.8-20.1); Calc. Creatinine Clearance 162 mL/min (70-130); Estimated GFR 65; Glucose 82 mg/dL (80-115); Magnesium 2.2 mg/dL (1.6-2.6)
[2022-09-27 07:00] LABS: #Monocytes 0.8 thou/uL (0.11-0.59); %Eosinophils 0.3 % (0.0-10.0); %Lymphocytes 22.4 % (21.0-51.0); %Neutrophils 68.2 % (42.0-75.0); Hemoglobin 8.5 g/dL (12.0-16.0); Mean Corpuscular Hemoglobin 26.8 pg (27.0-31.0); Mean Corpuscular Volume 89.4 fl (78.0-98.0); Mean Platelet Volume 7.4 fL (7.4-10.4); Platelet Count 192 10x3/uL (130-400); Red Blood Cell (RBC) Count 3.18 mill/uL (4.20-5.40); White Blood Cell (WBC) Count 9.4 10x3/uL (4.8-10.8)
[2022-09-27 07:05] LABS: Anion Gap 15 mmol/L (10-20); Carbon Dioxide 39 mmol/L (23-31); Chloride 93 mmol/L (98-107); Potassium 3.8 mmol/L (3.5-5.1); Sodium 143 mmol/L (136-145)
[2022-09-27] MEDS ORDERED: Furosemide 80 MG TAB PO SCH (07:30)
[2022-09-27] MEDS: traMADol HCl 50 MG TAB PO PRN ×2 (07:55→16:30)
[2022-09-27] MEDS: Potassium Chloride 20 MEQ TAB PO SCH (07:56)
[2022-09-27] MEDS: Famotidine 20 MG TAB PER TUBE SCH (07:56)
[2022-09-27] MEDS: guaiFENesin ER 600 MG TAB PO SCH (07:56)
[2022-09-27] MEDS: Aspirin Chewable 81 MG TAB PO SCH (07:56)
[2022-09-27] MEDS: Carvedilol 3.125 MG TAB PO SCH (07:57)
[2022-09-27] MEDS: Ferrous Sulfate 325 MG TAB PO SCH (07:57)
[2022-09-27] MEDS: Polyethylene Glycol 3350 17 GM Packet PO SCH (07:58)
[2022-09-27] MEDS: Methyl Salicylate/Menthol 85 GM TUBE TOP PRN (07:59)
[2022-09-27] MEDS ORDERED: predniSONE 20 MG TAB PO SCH (08:00)
[2022-09-27] MEDS: Ipratropium 200 Puff Oral Inhaler INH SCH ×3 (08:20→16:50)
[2022-09-27] MEDS: Mometasone 100 MCG/Formoterol 5 MCG 120 PUFF INHALER INH SCH (08:21)
[2022-09-27] MEDS: Albuterol HFA (OR) 200 PUFF INH INH SCH ×3 (08:21→16:50)
[2022-09-27] MEDS ORDERED: Losartan 25 MG TAB PO SCH (09:00)
[2022-09-27] MEDS: ALPRAZolam 0.25 MG TAB PO PRN (14:29)
[2022-09-27 16:24] VITALS: BP 186/76; TEMP 98.4
[2022-09-30 10:36] LABS: O2 Tension (PaO2), arterial 59.2 mmHg (> 80.0)
== END 2022-09-27 18:05 | DRG 177 ==
LOC: NEURO 09:41 → CCU 16:11 → T4-A 09-25 13:19
PROVIDERS: ADMIT Family Medicine; ATTEND Family Medicine
PROC: 4A033R1 Measurement of Arterial Saturation, Peripheral, Percutaneous Approach (ICD-10-PCS; principal; 2022-09-23)
DX: J69.0 Pneumonitis due to inhalation of food and vomit (principal); I50.33 Acute on chronic diastolic (congestive) heart failure; J96.21 Acute and chronic respiratory failure with hypoxia; J96.22 Acute and chronic respiratory failure with hypercapnia; J44.1 Chronic obstructive pulmonary disease with (acute) exacerbation; Z68.45 Body mass index [BMI] 70 or greater, adult; E66.2 Morbid (severe) obesity with alveolar hypoventilation; J44.0 Chronic obstructive pulmonary disease with (acute) lower respiratory infection; I11.0 Hypertensive heart disease with heart failure; G47.33 Obstructive sleep apnea (adult) (pediatric); F41.9 Anxiety disorder, unspecified; E11.65 Type 2 diabetes mellitus with hyperglycemia; F32.A Depression, unspecified; Z93.0 Tracheostomy status; Z86.73 Personal history of transient ischemic attack (TIA), and cerebral infarction without residual deficits; Z88.0 Allergy status to penicillin; Z88.8 Allergy status to other drugs, medicaments and biological substances; Z88.5 Allergy status to narcotic agent; Z79.51 Long term (current) use of inhaled steroids; Z79.82 Long term (current) use of aspirin; Z79.899 Other long term (current) drug therapy; Z90.49 Acquired absence of other specified parts of digestive tract; Z90.710 Acquired absence of both cervix and uterus
CPT/HCPCS: 36415; 36416; 71045; 80048; 80061; 80076; 82805; 83036; 83735; 83880; 84145; 85025; 87081; 87449; 87899; 93306; 94640; 97139; J0456; J0696; J1650; J1940; J2405; J2920; J3490; J7050; J7512; J7620

== ENCOUNTER 2023-02-12 16:14 | Emergency (ER) | payer MEDICARE, OTHER ==
[2023-02-12 17:05] LABS: #Basophils 0.1 thou/uL (0.0-0.2); #Eosinphils 0.4 thou/uL (0.0-0.7); #Monocytes 0.7 thou/uL (0.11-0.59); #Neutrophils 5.7 thou/uL (1.40-6.50); %Basophils 0.7 % (0.0-1.0); %Eosinophils 4.3 % (0.0-10.0); %Lymphocytes 25.1 % (21.0-51.0); %Monocytes 7.7 % (0.0-10.0); Hematocrit 30.2 % (36.0-47.0); Mean Corpuscular HGB CONC 29.8 g/dL (32.0-36.0); Mean Corpuscular Hemoglobin 26.8 pg (27.0-31.0); Mean Corpuscular Volume 89.9 fl (78.0-98.0); Mean Platelet Volume 9.4 fL (7.4-10.4); Platelet Count 209 10x3/uL (130-400); RBC Distribution Width 16.4 % (11.5-14.5); Red Blood Cell (RBC) Count 3.36 mill/uL (4.20-5.40); White Blood Cell (WBC) Count 9.2 10x3/uL (4.8-10.8)
[2023-02-12 17:27] LABS: ALT (SGPT) Less than 7 U/L (8-55); AST (SGOT) 8 U/L (5-34); Albumin 3.4 g/dL (3.4-4.8); Alkaline Phosphatase 95 U/L (40-110); Anion Gap 12 mmol/L (10-20); BUN (Urea Nitrogen) 19 mg/dL (9.8-20.1); Bilirubin, Total 0.5 mg/dL (0.2-1.2); Calc. Creatinine Clearance 0 mL/min (70-130); Calcium 9.2 mg/dL (7.8-10.44); Carbon Dioxide 30 mmol/L (23-31); Chloride 100 mmol/L (98-107); Estimated GFR 66; Globulin 4.5 g/dL (2.4-3.5); Glucose 87 mg/dL (80-115); Potassium 3.4 mmol/L (3.5-5.1); Protein, Total 7.9 g/dL (5.8-8.1); Sodium 139 mmol/L (136-145)
== END 2023-02-12 20:32 ==
LOC: ERS 16:14
DX: M25.562 Pain in left knee (principal); E11.9 Type 2 diabetes mellitus without complications; E78.5 Hyperlipidemia, unspecified; E66.9 Obesity, unspecified; K21.9 Gastro-esophageal reflux disease without esophagitis; Z79.82 Long term (current) use of aspirin
CPT/HCPCS: 36415; 85025; 85379

== ENCOUNTER 2023-02-19 17:10 | Emergency (ER) | payer MEDICARE, OTHER ==
[2023-02-19] MEDS ORDERED: fentaNYL 50 mcg/mL 1 mL Vial ONE ×2 (18:17→19:06)
[2023-02-19 18:22] LABS: #Basophils 0.1 thou/uL (0.0-0.2); #Eosinphils 0.4 thou/uL (0.0-0.7); #Monocytes 0.6 thou/uL (0.11-0.59); #Neutrophils 5.5 thou/uL (1.40-6.50); %Basophils 0.6 % (0.0-1.0); %Eosinophils 4.4 % (0.0-10.0); %Lymphocytes 24.5 % (21.0-51.0); %Monocytes 6.6 % (0.0-10.0); %Neutrophils 63.6 % (42.0-75.0); Hematocrit 29.6 % (36.0-47.0); Mean Corpuscular HGB CONC 30.4 g/dL (32.0-36.0); Mean Corpuscular Hemoglobin 26.7 pg (27.0-31.0); Mean Corpuscular Volume 87.8 fl (78.0-98.0); Mean Platelet Volume 9.2 fL (7.4-10.4); Platelet Count 218 10x3/uL (130-400); Red Blood Cell (RBC) Count 3.37 mill/uL (4.20-5.40); White Blood Cell (WBC) Count 8.7 10x3/uL (4.8-10.8)
[2023-02-19 18:46] LABS: Anion Gap 13 mmol/L (10-20); BUN (Urea Nitrogen) 23 mg/dL (9.8-20.1); Calc. Creatinine Clearance 0 mL/min (70-130); Calcium 9.3 mg/dL (7.8-10.44); Carbon Dioxide 30 mmol/L (23-31); Chloride 98 mmol/L (98-107); Estimated GFR 62; Glucose 98 mg/dL (80-115); Potassium 3.3 mmol/L (3.5-5.1); Sodium 138 mmol/L (136-145)
== END 2023-02-19 21:40 | disposition home or self-care (01) ==
LOC: ERS 17:10
DX: I82.401 Acute embolism and thrombosis of unspecified deep veins of right lower extremity (principal); E11.9 Type 2 diabetes mellitus without complications; E78.5 Hyperlipidemia, unspecified; I10 Essential (primary) hypertension; E66.9 Obesity, unspecified; K21.9 Gastro-esophageal reflux disease without esophagitis
CPT/HCPCS: 72170; 73502 ×2; 80048; 85025; 93970; J3010; 36415; 96374; 96376

== ENCOUNTER 2023-04-22 18:43 | Inpatient (IN) | payer MEDICARE, MEDICAID ==
[2023-04-22 19:19] LABS: Bilirubin Negative (Negative); Blood, Urine 3+ (Negative); CAUTI Indications for Culture Acute Hematuria; Clarity Turbid (Clear); Glucose, Urine (Dipstick) Normal (Negative); Ketone, Urine Negative (Negative); Leukocyte 500 Leu/uL (Negative); Nitrite Negative (Negative); Protein, Urine (Dipstick) 30 mg/dL (Neg-Trace); RBC/HPF Greater than 50 HPF (0-3); Renal Epithelial 0-3 HPF (None Seen); Specific Gravity, Urine 1.009 (1.002-1.036); Squamous Epithelial 0-3 HPF (0-3); Urobilinogen Normal mg/dL (Less than 2); WBC/HPF Greater than 50 HPF (0-3); pH, Urine 6.5 (5.0-9.0)
[2023-04-22 19:25] LABS: Bacteria/HPF Rare-Few HPF (None Seen)
[2023-04-22 19:27] LABS: Urine Culture Reflex Yes Yes
[2023-04-22 20:50] LABS: #Basophils 0.1 thou/uL (0.0-0.2); #Eosinphils 0.4 thou/uL (0.0-0.7); #Monocytes 0.7 thou/uL (0.11-0.59); %Basophils 0.6 % (0.0-1.0); %Eosinophils 4.9 % (0.0-10.0); %Lymphocytes 24.1 % (21.0-51.0); %Monocytes 8.6 % (0.0-10.0); %Neutrophils 61.6 % (42.0-75.0); Hematocrit 27.6 % (36.0-47.0); Hemoglobin 8.4 g/dL (12.0-16.0); Mean Corpuscular HGB CONC 30.4 g/dL (32.0-36.0); Mean Corpuscular Hemoglobin 26.8 pg (27.0-31.0); Mean Corpuscular Volume 88.2 fl (78.0-98.0); Mean Platelet Volume 9.1 fL (7.4-10.4); Platelet Count 157 10x3/uL (130-400); RBC Distribution Width 16.8 % (11.5-14.5); Red Blood Cell (RBC) Count 3.13 mill/uL (4.20-5.40); White Blood Cell (WBC) Count 8.1 10x3/uL (4.8-10.8)
[2023-04-22 21:18] LABS: ALT (SGPT) Less than 7 U/L (8-55); AST (SGOT) 18 U/L (5-34); Albumin 3.5 g/dL (3.4-4.8); Alkaline Phosphatase 93 U/L (40-110); Anion Gap 16 mmol/L (10-20); BUN (Urea Nitrogen) 18 mg/dL (9.8-20.1); Bilirubin, Total 0.2 mg/dL (0.2-1.2); Calc. Creatinine Clearance 0 mL/min (70-130); Calcium 9.2 mg/dL (7.8-10.44); Carbon Dioxide 31 mmol/L (23-31); Chloride 96 mmol/L (98-107); Estimated GFR 44; Globulin 4.2 g/dL (2.4-3.5); Glucose 100 mg/dL (80-115); Potassium 3.6 mmol/L (3.5-5.1); Protein, Total 7.7 g/dL (5.8-8.1); Sodium 139 mmol/L (136-145)
[2023-04-22] MEDS ORDERED: Ondansetron PF 4 MG/2 ML Vial IVP PRN (22:46)
[2023-04-22] MEDS ORDERED: Acetaminophen 325 MG TAB PO PRN (22:46)
[2023-04-22] MEDS ORDERED: Ondansetron ODT 4 MG TAB PO PRN (22:46)
[2023-04-22] MEDS ORDERED: Cefepime 2 GM VIAL ONE (23:27)
[2023-04-22] MEDS ORDERED: Sodium Chloride 0.9% 100 ML ONE (23:27)
[2023-04-22] MEDS ORDERED: Vancomycin (BATCH) 2 GM in Premix 1 BAG IVPB SCH (23:45)
[2023-04-23 01:17] VITALS: BMI 67.6
[2023-04-23 04:57] LABS: #Basophils 0.1 thou/uL (0.0-0.2); #Eosinphils 0.4 thou/uL (0.0-0.7); #Monocytes 0.7 thou/uL (0.11-0.59); %Basophils 0.7 % (0.0-1.0); %Eosinophils 5.7 % (0.0-10.0); %Lymphocytes 27.8 % (21.0-51.0); %Monocytes 9.1 % (0.0-10.0); %Neutrophils 56.3 % (42.0-75.0); Hematocrit 24.4 % (36.0-47.0); Hemoglobin 7.3 g/dL (12.0-16.0); Mean Corpuscular HGB CONC 29.9 g/dL (32.0-36.0); Mean Corpuscular Hemoglobin 26.4 pg (27.0-31.0); Mean Corpuscular Volume 88.1 fl (78.0-98.0); Mean Platelet Volume 9.4 fL (7.4-10.4); Platelet Count 144 10x3/uL (130-400); RBC Distribution Width 16.8 % (11.5-14.5); Red Blood Cell (RBC) Count 2.77 mill/uL (4.20-5.40); White Blood Cell (WBC) Count 7.2 10x3/uL (4.8-10.8)
[2023-04-23 05:21] LABS: Anion Gap 14 mmol/L (10-20); BUN (Urea Nitrogen) 18 mg/dL (9.8-20.1); Calc. Creatinine Clearance 112 mL/min (70-130); Calcium 8.4 mg/dL (7.8-10.44); Carbon Dioxide 32 mmol/L (23-31); Chloride 99 mmol/L (98-107); Estimated GFR 50; Glucose 85 mg/dL (80-115); Potassium 3.2 mmol/L (3.5-5.1); Sodium 142 mmol/L (136-145)
[2023-04-23] MEDS: Levothyroxine Sodium 75 MCG TAB PO SCH (05:58)
[2023-04-23] MEDS: Sodium Chloride 0.9% 1,000 ML IV SCH ×2 (05:59→17:04)
[2023-04-23] MEDS ORDERED: Electrolyte Replacement Protocol FS PRN (06:45)
[2023-04-23] MEDS ORDERED: Potassium Chloride 20 MEQ TAB PO SCH (08:00)
[2023-04-23] MEDS: Carvedilol 3.125 MG TAB PO SCH ×2 (09:02→20:52)
[2023-04-23] MEDS ORDERED: Ipratropium/Albuterol 3 ML NEB NEB SCH (09:26)
[2023-04-23] MEDS ORDERED: Ciprofloxacin 500 MG TAB PO SCH (10:00)
[2023-04-23 10:18] LABS: Iron 33 ug/dL (50-170); Iron Binding Capacity, Total 249 mcg/dL (265-497)
[2023-04-23] MEDS: Ipratropium/Albuterol 3 ML NEB NEB SCH ×3 (15:00→23:22)
[2023-04-23] MEDS ORDERED: Ferrous Sulfate 325 MG TAB PO SCH (15:15)
[2023-04-23] MEDS: Mometasone 100 MCG/Formoterol 5 MCG 120 PUFF INHALER INH SCH (18:45)
[2023-04-23] MEDS: Ciprofloxacin 500 MG TAB PO SCH (20:51)
[2023-04-23] MEDS: guaiFENesin ER 600 MG TAB PO SCH (20:51)
[2023-04-23] MEDS: Simvastatin 10 MG TAB PO SCH (20:51)
[2023-04-23] MEDS: Gabapentin 100 MG CAP PO SCH (20:51)
[2023-04-23] MEDS: Baclofen 10 MG TAB PO SCH (20:52)
[2023-04-23] MEDS: ALPRAZolam 0.25 MG TAB PO PRN (20:55)
[2023-04-23] MEDS ORDERED: Simvastatin 20 MG TAB PO SCH (21:00)
[2023-04-24] MEDS: Levothyroxine Sodium 75 MCG TAB PO SCH (05:53)
[2023-04-24] MEDS: Ciprofloxacin 500 MG TAB PO SCH ×2 (05:53→20:37)
[2023-04-24] MEDS: traMADol HCl 50 MG TAB PO PRN ×2 (06:02→20:43)
[2023-04-24] MEDS: Ipratropium/Albuterol 3 ML NEB NEB SCH ×3 (07:22→18:52)
[2023-04-24] MEDS: Mometasone 100 MCG/Formoterol 5 MCG 120 PUFF INHALER INH SCH ×2 (07:25→18:52)
[2023-04-24 07:32] LABS: #Basophils 0.1 thou/uL (0.0-0.2); #Eosinphils 0.4 thou/uL (0.0-0.7); #Monocytes 0.6 thou/uL (0.11-0.59); #Neutrophils 3.6 thou/uL (1.40-6.50); %Basophils 0.9 % (0.0-1.0); %Eosinophils 5.1 % (0.0-10.0); %Lymphocytes 33.3 % (21.0-51.0); %Monocytes 8.4 % (0.0-10.0); %Neutrophils 51.9 % (42.0-75.0); Hematocrit 24.5 % (36.0-47.0); Hemoglobin 7.2 g/dL (12.0-16.0); Mean Corpuscular HGB CONC 29.4 g/dL (32.0-36.0); Mean Corpuscular Hemoglobin 26.4 pg (27.0-31.0); Mean Corpuscular Volume 89.7 fl (78.0-98.0); Mean Platelet Volume 9.2 fL (7.4-10.4); Platelet Count 157 10x3/uL (130-400); RBC Distribution Width 17.1 % (11.5-14.5); Red Blood Cell (RBC) Count 2.73 mill/uL (4.20-5.40); White Blood Cell (WBC) Count 6.9 10x3/uL (4.8-10.8)
[2023-04-24 07:46] LABS: Anion Gap 15 mmol/L (10-20); BUN (Urea Nitrogen) 16 mg/dL (9.8-20.1); Calc. Creatinine Clearance 113 mL/min (70-130); Calcium 8.4 mg/dL (7.8-10.44); Carbon Dioxide 30 mmol/L (23-31); Chloride 101 mmol/L (98-107); Estimated GFR 51; Glucose 88 mg/dL (80-115); Potassium 3.7 mmol/L (3.5-5.1); Sodium 142 mmol/L (136-145)
[2023-04-24] MEDS: guaiFENesin ER 600 MG TAB PO SCH ×2 (09:00→20:37)
[2023-04-24] MEDS: Bisacodyl 5 MG TAB PO SCH (09:00)
[2023-04-24] MEDS: Ferrous Sulfate 325 MG TAB PO SCH (09:00)
[2023-04-24] MEDS ORDERED: Non-Formulary Item 1 EACH (Fluticasone/Vilanterol [Breo Ellipta] 100 MCG/25 MCG Blst.W.De INH SCH (09:00)
[2023-04-24] MEDS: Carvedilol 3.125 MG TAB PO SCH ×2 (09:00→20:37)
[2023-04-24] MEDS ORDERED: Iron, Sodium Ferric Gluconate 125 MG in Sodium Chloride 0.9% 100 ML IVPB SCH (09:45)
[2023-04-24] MEDS: Apixaban 5 MG TAB PO SCH ×2 (12:37→20:37)
[2023-04-24] MEDS: Gabapentin 100 MG CAP PO SCH (20:37)
[2023-04-24] MEDS: Simvastatin 10 MG TAB PO SCH (20:37)
[2023-04-24] MEDS: Baclofen 10 MG TAB PO SCH (20:37)
[2023-04-25] MEDS: Ipratropium/Albuterol 3 ML NEB NEB SCH ×4 (01:36→18:38)
[2023-04-25 04:43] LABS: #Basophils 0.1 thou/uL (0.0-0.2); #Eosinphils 0.4 thou/uL (0.0-0.7); #Monocytes 0.7 thou/uL (0.11-0.59); #Neutrophils 4.4 thou/uL (1.40-6.50); %Basophils 0.8 % (0.0-1.0); %Eosinophils 4.9 % (0.0-10.0); %Lymphocytes 27.3 % (21.0-51.0); %Neutrophils 57.6 % (42.0-75.0); Hematocrit 26.8 % (36.0-47.0); Hemoglobin 7.9 g/dL (12.0-16.0); Mean Corpuscular HGB CONC 29.5 g/dL (32.0-36.0); Mean Corpuscular Hemoglobin 26.4 pg (27.0-31.0); Mean Corpuscular Volume 89.6 fl (78.0-98.0); Mean Platelet Volume 9.7 fL (7.4-10.4); Platelet Count 162 10x3/uL (130-400); RBC Distribution Width 17.1 % (11.5-14.5); Red Blood Cell (RBC) Count 2.99 mill/uL (4.20-5.40); White Blood Cell (WBC) Count 7.6 10x3/uL (4.8-10.8)
[2023-04-25 05:09] LABS: Anion Gap 12 mmol/L (10-20); BUN (Urea Nitrogen) 17 mg/dL (9.8-20.1); Calc. Creatinine Clearance 123 mL/min (70-130); Calcium 8.9 mg/dL (7.8-10.44); Carbon Dioxide 31 mmol/L (23-31); Chloride 102 mmol/L (98-107); Estimated GFR 56; Glucose 82 mg/dL (80-115); Potassium 3.5 mmol/L (3.5-5.1); Sodium 141 mmol/L (136-145)
[2023-04-25] MEDS: Levothyroxine Sodium 75 MCG TAB PO SCH (05:28)
[2023-04-25] MEDS: Ciprofloxacin 500 MG TAB PO SCH ×2 (05:28→21:19)
[2023-04-25] MEDS: Mometasone 100 MCG/Formoterol 5 MCG 120 PUFF INHALER INH SCH ×2 (07:05→18:40)
[2023-04-25] MEDS ORDERED: Potassium Chloride 20 MEQ TAB PO SCH (09:00)
[2023-04-25] MEDS: guaiFENesin ER 600 MG TAB PO SCH ×2 (09:08→21:20)
[2023-04-25] MEDS: Bisacodyl 5 MG TAB PO SCH (09:08)
[2023-04-25] MEDS: Carvedilol 3.125 MG TAB PO SCH ×2 (09:09→21:22)
[2023-04-25] MEDS: Ferrous Sulfate 325 MG TAB PO SCH (09:09)
[2023-04-25] MEDS: Apixaban 5 MG TAB PO SCH ×2 (09:09→21:21)
[2023-04-25] MEDS: ALPRAZolam 0.25 MG TAB PO PRN (16:42)
[2023-04-25] MEDS: Baclofen 10 MG TAB PO SCH (21:20)
[2023-04-25] MEDS: Gabapentin 100 MG CAP PO SCH (21:20)
[2023-04-25] MEDS: Simvastatin 10 MG TAB PO SCH (21:22)
[2023-04-26] MEDS: traMADol HCl 50 MG TAB PO PRN (01:27)
[2023-04-26] MEDS: Ciprofloxacin 500 MG TAB PO SCH ×2 (05:38→21:10)
[2023-04-26] MEDS: Levothyroxine Sodium 75 MCG TAB PO SCH (05:39)
[2023-04-26 05:40] LABS: #Basophils 0.1 thou/uL (0.0-0.2); #Eosinphils 0.4 thou/uL (0.0-0.7); #Monocytes 0.7 thou/uL (0.11-0.59); #Neutrophils 4.6 thou/uL (1.40-6.50); %Basophils 0.6 % (0.0-1.0); %Eosinophils 5.3 % (0.0-10.0); %Lymphocytes 28.9 % (21.0-51.0); %Monocytes 8.7 % (0.0-10.0); %Neutrophils 56.1 % (42.0-75.0); Hematocrit 27.9 % (36.0-47.0); Hemoglobin 8.2 g/dL (12.0-16.0); Mean Corpuscular HGB CONC 29.4 g/dL (32.0-36.0); Mean Corpuscular Volume 88.6 fl (78.0-98.0); Mean Platelet Volume 9.5 fL (7.4-10.4); Platelet Count 171 10x3/uL (130-400); RBC Distribution Width 17.1 % (11.5-14.5); Red Blood Cell (RBC) Count 3.15 mill/uL (4.20-5.40); White Blood Cell (WBC) Count 8.1 10x3/uL (4.8-10.8)
[2023-04-26 06:09] LABS: Anion Gap 11 mmol/L (10-20); BUN (Urea Nitrogen) 14 mg/dL (9.8-20.1); Calc. Creatinine Clearance 128 mL/min (70-130); Carbon Dioxide 31 mmol/L (23-31); Chloride 104 mmol/L (98-107); Estimated GFR 59; Glucose 80 mg/dL (80-115); Potassium 3.8 mmol/L (3.5-5.1); Sodium 142 mmol/L (136-145)
[2023-04-26] MEDS: Ipratropium/Albuterol 3 ML NEB NEB SCH ×4 (07:27→18:48)
[2023-04-26] MEDS: Mometasone 100 MCG/Formoterol 5 MCG 120 PUFF INHALER INH SCH ×2 (07:29→18:49)
[2023-04-26] MEDS: Ferrous Sulfate 325 MG TAB PO SCH (10:49)
[2023-04-26] MEDS: guaiFENesin ER 600 MG TAB PO SCH ×2 (10:49→21:10)
[2023-04-26] MEDS: Apixaban 5 MG TAB PO SCH ×2 (10:49→21:11)
[2023-04-26] MEDS: Carvedilol 3.125 MG TAB PO SCH ×2 (10:49→21:10)
[2023-04-26] MEDS: Bisacodyl 5 MG TAB PO SCH (10:50)
[2023-04-26] MEDS: ALPRAZolam 0.25 MG TAB PO PRN (17:04)
[2023-04-26] MEDS ORDERED: Nystatin Powder 15 GM BOT TOP PRN (20:42)
[2023-04-26] MEDS: Baclofen 10 MG TAB PO SCH (21:10)
[2023-04-26] MEDS: Simvastatin 10 MG TAB PO SCH (21:10)
[2023-04-26] MEDS: Gabapentin 100 MG CAP PO SCH (21:10)
[2023-04-27] MEDS: Ipratropium/Albuterol 3 ML NEB NEB SCH ×4 (00:49→18:26)
[2023-04-27] MEDS: Levothyroxine Sodium 75 MCG TAB PO SCH (05:32)
[2023-04-27] MEDS: Ciprofloxacin 500 MG TAB PO SCH (05:32)
[2023-04-27] MEDS: traMADol HCl 50 MG TAB PO PRN (05:37)
[2023-04-27 05:48] LABS: #Eosinphils 0.4 thou/uL (0.0-0.7); #Monocytes 0.6 thou/uL (0.11-0.59); #Neutrophils 3.8 thou/uL (1.40-6.50); %Basophils 0.6 % (0.0-1.0); %Eosinophils 5.5 % (0.0-10.0); %Lymphocytes 29.4 % (21.0-51.0); %Monocytes 8.7 % (0.0-10.0); %Neutrophils 55.5 % (42.0-75.0); Hematocrit 26.4 % (36.0-47.0); Hemoglobin 7.8 g/dL (12.0-16.0); Mean Corpuscular HGB CONC 29.5 g/dL (32.0-36.0); Mean Corpuscular Hemoglobin 26.4 pg (27.0-31.0); Mean Corpuscular Volume 89.5 fl (78.0-98.0); Mean Platelet Volume 9.8 fL (7.4-10.4); Platelet Count 142 10x3/uL (130-400); RBC Distribution Width 17.2 % (11.5-14.5); Red Blood Cell (RBC) Count 2.95 mill/uL (4.20-5.40); White Blood Cell (WBC) Count 6.9 10x3/uL (4.8-10.8)
[2023-04-27 06:10] LABS: Anion Gap 12 mmol/L (10-20); BUN (Urea Nitrogen) 12 mg/dL (9.8-20.1); Calc. Creatinine Clearance 132 mL/min (70-130); Calcium 8.8 mg/dL (7.8-10.44); Carbon Dioxide 28 mmol/L (23-31); Chloride 102 mmol/L (98-107); Estimated GFR 61; Glucose 77 mg/dL (80-115); Potassium 3.9 mmol/L (3.5-5.1); Sodium 138 mmol/L (136-145)
[2023-04-27] MEDS: Mometasone 100 MCG/Formoterol 5 MCG 120 PUFF INHALER INH SCH ×2 (07:06→18:27)
[2023-04-27] MEDS: Apixaban 5 MG TAB PO SCH (09:16)
[2023-04-27] MEDS: Carvedilol 3.125 MG TAB PO SCH (09:16)
[2023-04-27] MEDS: guaiFENesin ER 600 MG TAB PO SCH (09:16)
[2023-04-27] MEDS: Ferrous Sulfate 325 MG TAB PO SCH (09:16)
[2023-04-27] MEDS: Bisacodyl 5 MG TAB PO SCH (09:18)
[2023-04-27] MEDS: ALPRAZolam 0.25 MG TAB PO PRN (14:29)
[2023-04-27 20:11] VITALS: BP 142/83; TEMP 98
== END 2023-04-27 20:15 | DRG 699 ==
LOC: ERS 18:43 → T4-B 22:46
PROVIDERS: ADMIT Student in an Organized Health Care Education/Training Program; ATTEND Hospitalist
PROC: 0T9B70Z Drainage of Bladder with Drainage Device, Via Natural or Artificial Opening (ICD-10-PCS; principal; 2023-04-22)
DX: T83.511A Infection and inflammatory reaction due to indwelling urethral catheter, initial encounter (principal); D62 Acute posthemorrhagic anemia; J96.10 Chronic respiratory failure, unspecified whether with hypoxia or hypercapnia; Z68.44 Body mass index [BMI] 60.0-69.9, adult; N17.9 Acute kidney failure, unspecified; N39.0 Urinary tract infection, site not specified; R31.9 Hematuria, unspecified; D64.9 Anemia, unspecified; E03.9 Hypothyroidism, unspecified; G47.33 Obstructive sleep apnea (adult) (pediatric); Z86.718 Personal history of other venous thrombosis and embolism; Z91.040 Latex allergy status; Z88.1 Allergy status to other antibiotic agents; Z79.899 Other long term (current) drug therapy; Z88.0 Allergy status to penicillin; Z90.49 Acquired absence of other specified parts of digestive tract; Z90.710 Acquired absence of both cervix and uterus; Z98.890 Other specified postprocedural states; E66.01 Morbid (severe) obesity due to excess calories; E87.6 Hypokalemia; D50.9 Iron deficiency anemia, unspecified
CPT/HCPCS: 36415; 74176; 80048; 80053; 81001; 82728; 83540; 83550; 83605; 83880; 85025; 87040; 87086; 93970; 94640; 96365; 97139; J0692; J2916; J3370; J3490; J7050; J7620

== ENCOUNTER 2023-07-29 17:53 | Inpatient (IN) | payer MEDICARE, MEDICAID ==
[2023-07-29 19:00] LABS: #Eosinphils 0.5 thou/uL (0.0-0.7); #Monocytes 0.4 thou/uL (0.11-0.59); #Neutrophils 4.1 thou/uL (1.40-6.50); %Basophils 0.4 % (0.0-1.0); %Eosinophils 6.8 % (0.0-10.0); %Monocytes 6.5 % (0.0-10.0); %Neutrophils 60.7 % (42.0-75.0); Hematocrit 23.9 % (36.0-47.0); Hemoglobin 6.8 g/dL (12.0-16.0); Mean Corpuscular HGB CONC 28.5 g/dL (32.0-36.0); Mean Corpuscular Hemoglobin 25.5 pg (27.0-31.0); Mean Corpuscular Volume 89.5 fl (78.0-98.0); Mean Platelet Volume 8.7 fL (7.4-10.4); Platelet Count 195 10x3/uL (130-400); RBC Distribution Width 18.7 % (11.5-14.5); Red Blood Cell (RBC) Count 2.67 mill/uL (4.20-5.40); White Blood Cell (WBC) Count 6.7 10x3/uL (4.8-10.8)
[2023-07-29 19:15] LABS: INR-International Normal Ratio 1.6; PTT 45.1 sec (22.9-36.1); Prothrombin Time 18.9 sec (12.0-14.7)
[2023-07-29 19:28] LABS: ALT (SGPT) Less than 7 U/L (8-55); AST (SGOT) 10 U/L (5-34); Albumin 2.8 g/dL (3.4-4.8); Alkaline Phosphatase 76 U/L (40-110); Anion Gap 9 mmol/L (10-20); BUN (Urea Nitrogen) 14 mg/dL (9.8-20.1); Bilirubin, Total 0.2 mg/dL (0.2-1.2); Calc. Creatinine Clearance 0 mL/min (70-130); Calcium 8.3 mg/dL (7.8-10.44); Carbon Dioxide 36 mmol/L (23-31); Chloride 98 mmol/L (98-107); Estimated GFR 54; Globulin 4.2 g/dL (2.4-3.5); Glucose 99 mg/dL (80-115); Potassium 3.6 mmol/L (3.5-5.1); Sodium 139 mmol/L (136-145)
[2023-07-30] MEDS ORDERED: ALPRAZolam 0.25 MG TAB PO PRN (01:11)
[2023-07-30] MEDS ORDERED: Ipratropium/Albuterol 3 ML NEB NEB PRN (01:11)
[2023-07-30] MEDS ORDERED: MENTHOL TOP PRN (01:11)
[2023-07-30] MEDS ORDERED: Calcium Carbonate 500 MG ChewTAB PO PRN (01:15)
[2023-07-30] MEDS ORDERED: Ondansetron ODT 4 MG TAB PO PRN (01:15)
[2023-07-30] MEDS ORDERED: Loperamide HCl 2 MG CAP PO PRN (01:28)
[2023-07-30 02:19] VITALS: BMI 68.1
[2023-07-30] MEDS: Apixaban 5 MG TAB PO SCH ×3 (02:49→13:10)
[2023-07-30] MEDS: traMADol HCl 50 MG TAB PO PRN ×3 (04:23→16:25)
[2023-07-30] MEDS ORDERED: Levothyroxine Sodium 75 MCG TAB PO SCH (06:00)
[2023-07-30 06:25] LABS: #Eosinphils 0.4 thou/uL (0.0-0.7); #Monocytes 0.4 thou/uL (0.11-0.59); #Neutrophils 4.4 thou/uL (1.40-6.50); %Basophils 0.4 % (0.0-1.0); %Eosinophils 6.3 % (0.0-10.0); %Lymphocytes 23.8 % (21.0-51.0); %Monocytes 6.2 % (0.0-10.0); Hematocrit 26.7 % (36.0-47.0); Hemoglobin 7.8 g/dL (12.0-16.0); Mean Corpuscular HGB CONC 29.2 g/dL (32.0-36.0); Mean Corpuscular Hemoglobin 26.3 pg (27.0-31.0); Mean Corpuscular Volume 89.9 fl (78.0-98.0); Platelet Count 198 10x3/uL (130-400); RBC Distribution Width 18.1 % (11.5-14.5); Red Blood Cell (RBC) Count 2.97 mill/uL (4.20-5.40); White Blood Cell (WBC) Count 6.9 10x3/uL (4.8-10.8)
[2023-07-30] MEDS ORDERED: Mometasone 100 MCG/Formoterol 5 MCG 120 PUFF INHALER INH SCH (06:30)
[2023-07-30] MEDS ORDERED: Famotidine 20 MG TAB PO SCH (09:00)
[2023-07-30] MEDS ORDERED: Baclofen 10 MG TAB PO SCH (09:00)
[2023-07-30] MEDS ORDERED: Carvedilol 3.125 MG TAB PO SCH (09:00)
[2023-07-30 16:33] VITALS: TEMP 98.4
[2023-07-30 18:41] VITALS: BP 136/73
[2023-07-30] MEDS ORDERED: Simvastatin 10 MG TAB PO SCH (21:00)
[2023-07-30] MEDS ORDERED: Gabapentin 100 MG CAP PO SCH (21:00)
== END 2023-07-30 18:05 | DRG 699 ==
LOC: ERS 17:53 → T4-A 07-30
PROVIDERS: ADMIT Student in an Organized Health Care Education/Training Program; ATTEND Internal Medicine
PROC: 30233N1 Transfusion of Nonautologous Red Blood Cells into Peripheral Vein, Percutaneous Approach (ICD-10-PCS; principal; 2023-07-29)
DX: T83.091A Other mechanical complication of indwelling urethral catheter, initial encounter (principal); I50.40 Unspecified combined systolic (congestive) and diastolic (congestive) heart failure; J96.10 Chronic respiratory failure, unspecified whether with hypoxia or hypercapnia; D64.9 Anemia, unspecified; E66.9 Obesity, unspecified; E11.9 Type 2 diabetes mellitus without complications; I10 Essential (primary) hypertension; E78.5 Hyperlipidemia, unspecified; R33.9 Retention of urine, unspecified; F41.9 Anxiety disorder, unspecified; F32.A Depression, unspecified; Z88.5 Allergy status to narcotic agent; Z88.8 Allergy status to other drugs, medicaments and biological substances; Z88.0 Allergy status to penicillin; Z79.82 Long term (current) use of aspirin; Z79.890 Hormone replacement therapy; Z79.2 Long term (current) use of antibiotics; Z79.899 Other long term (current) drug therapy; Z86.73 Personal history of transient ischemic attack (TIA), and cerebral infarction without residual deficits; Z90.49 Acquired absence of other specified parts of digestive tract; Z90.89 Acquired absence of other organs; Z90.710 Acquired absence of both cervix and uterus; Z98.890 Other specified postprocedural states; M10.09 Idiopathic gout, multiple sites
CPT/HCPCS: 36415; 36430; 80053; 80061; 83036; 84443; 84550; 85025; 85610; 85730; 86850; 86900; 86901; 93005; 94640; J7620; P9016

== ENCOUNTER 2023-11-14 18:30 | Inpatient (IN) | payer MEDICARE, MEDICAID ==
[2023-11-14 19:08] LABS: #Basophils 0.05 10x3/uL (0.0-0.2); %Basophils 0.2 % (0.0-1.0); %Eosinophils 0.9 % (0.0-10.0); %Lymphocytes 4.4 % (21.0-51.0); %Monocytes 4.4 % (0.0-10.0); %Neutrophils 89.3 % (42.0-75.0); Hematocrit 29.2 % (36.0-47.0); Hemoglobin 8.7 g/dL (12.0-16.0); Mean Corpuscular HGB CONC 29.8 g/dL (32.0-36.0); Mean Corpuscular Hemoglobin 27.1 pg (27.0-31.0); Mean Platelet Volume 9.2 fL (7.4-10.4); Platelet Count 178 10x3/uL (130-400); RBC Distribution Width 16.9 % (11.5-14.5); Red Blood Cell (RBC) Count 3.21 mill/uL (4.20-5.40)
[2023-11-14 19:22] LABS: Actual Bicarbonate (HCO3v) 26.3 mEq/L (22-28); Base Excess 2.1 mEq/L (-2.0 to +3.0); Calcium, Ionized (venous) 1.05 mmol/L (1.16-1.32); Chloride (VBG) 103 mmol/L (98-106); Hematocrit-VBG 29 % (36.0-47.0); Hemoglobin (Hb) 9.7 g/dL (11.7-16.1); Potassium (VBG) 4.08 mmol/L (3.70-5.30); Sodium 138 mmol/L (133-146); pH (venous) 7.443 (7.32-7.43)
[2023-11-14 19:27] LABS: ALT (SGPT) 7 U/L (8-55); AST (SGOT) 15 U/L (5-34); Albumin 2.3 g/dL (3.4-4.8); Alkaline Phosphatase 114 U/L (40-110); Anion Gap 10 mmol/L (10-20); BUN (Urea Nitrogen) 28 mg/dL (9.8-20.1); Bilirubin, Total 0.5 mg/dL (0.2-1.2); Calc. Creatinine Clearance 0 mL/min (70-130); Calcium 8.6 mg/dL (7.8-10.44); Carbon Dioxide 29 mmol/L (23-31); Chloride 104 mmol/L (98-107); Estimated GFR 31; Globulin 4.8 g/dL (2.4-3.5); Glucose 119 mg/dL (80-115); Potassium 4.2 mmol/L (3.5-5.1); Protein, Total 7.1 g/dL (5.8-8.1); Sodium 139 mmol/L (136-145)
[2023-11-14] MEDS ORDERED: LevoFLOXacin D5W 500 mg (100 mL) BAG ONE (20:37)
[2023-11-14 21:48] LABS: Influenza A by NAA Not Detected (NotDetected); Influenza B by NAA Not Detected (NotDetected); SARS-CoV-2 NAA Rapid Test Not Detected (NotDetected)
[2023-11-14 21:55] LABS: Bacteria/HPF None Seen HPF (None Seen); Bilirubin Negative (Negative); Blood, Urine 3+ (Negative); CAUTI Indications for Culture Alt mental st,lethar; Clarity Turbid (Clear); Glucose, Urine (Dipstick) Normal (Negative); Ketone, Urine Negative (Negative); Leukocyte 250 Leu/uL (Negative); Nitrite Negative (Negative); Protein, Urine (Dipstick) 30 mg/dL (Neg-Trace); RBC/HPF Greater than 50 HPF (0-3); Specific Gravity, Urine 1.018 (1.002-1.036); Squamous Epithelial 0-3 HPF (0-3); Urobilinogen Normal mg/dL (Less than 2)
[2023-11-14 21:56] LABS: Urine Culture Reflex No No
[2023-11-14] MEDS ORDERED: Vancomycin 1 GM/200 ML (FROZEN) BAG ONE (22:24)
[2023-11-15] MEDS ORDERED: Ondansetron ODT 4 MG TAB PO PRN (01:17)
[2023-11-15] MEDS ORDERED: Ondansetron PF 4 MG/2 ML Vial IVP PRN (01:17)
[2023-11-15 04:49] VITALS: BMI 66.4
[2023-11-15] MEDS: Meropenem 1 GM in Sodium Chloride 0.9% 100 ML IVPB SCH ×2 (05:08→14:09)
[2023-11-15] MEDS: Vancomycin (BATCH) 1.5 GM in Premix 1 BAG IVPB SCH (05:51)
[2023-11-15 07:12] LABS: #Basophils 0.03 10x3/uL (0.0-0.2); %Basophils 0.2 % (0.0-1.0); %Eosinophils 1.8 % (0.0-10.0); %Lymphocytes 15.1 % (21.0-51.0); %Monocytes 6.8 % (0.0-10.0); %Neutrophils 75.6 % (42.0-75.0); Hematocrit 28.4 % (36.0-47.0); Hemoglobin 8.3 g/dL (12.0-16.0); Mean Corpuscular HGB CONC 29.2 g/dL (32.0-36.0); Mean Corpuscular Hemoglobin 26.8 pg (27.0-31.0); Mean Corpuscular Volume 91.6 fL (78.0-98.0); Mean Platelet Volume 9.4 fL (7.4-10.4); Platelet Count 148 10x3/uL (130-400); RBC Distribution Width 17.1 % (11.5-14.5)
[2023-11-15 07:48] LABS: Anion Gap 12 mmol/L (10-20); BUN (Urea Nitrogen) 30 mg/dL (9.8-20.1); Calc. Creatinine Clearance 73 mL/min (70-130); Calcium 8.3 mg/dL (7.8-10.44); Carbon Dioxide 26 mmol/L (23-31); Chloride 106 mmol/L (98-107); Estimated GFR 31; Glucose 77 mg/dL (80-115); Potassium 4.2 mmol/L (3.5-5.1); Sodium 140 mmol/L (136-145)
[2023-11-15 08:19] LABS: Band 14 % (5-11); Eosinophils 2 % (0-10); Lymphocytes 5 % (21-51); Monocytes 1 % (0-10); Neutrophil 78 % (42-75); Platelet Adequacy Comment Platelets Normal; Polychromasia SLIGHT = 2-3 cells HPF (0-2)
[2023-11-15] MEDS ORDERED: Heparin 5,000 UNITS/ML VIAL ONE (11:38)
[2023-11-15] MEDS ORDERED: Meropenem 1 GM in Sodium Chloride 0.9% 100 ML IVPB SCH (13:00)
[2023-11-15] MEDS: Heparin 5,000 UNITS/ML VIAL SC SCH ×2 (13:22→14:20)
[2023-11-16 04:44] LABS: #Basophils Less than 0.03 10x3/uL (0.0-0.2); %Basophils 0.2 % (0.0-1.0); %Eosinophils 3.1 % (0.0-10.0); %Lymphocytes 14.7 % (21.0-51.0); %Monocytes 6.3 % (0.0-10.0); %Neutrophils 75.3 % (42.0-75.0); Hematocrit 27.4 % (36.0-47.0); Hemoglobin 8.2 g/dL (12.0-16.0); Mean Corpuscular HGB CONC 29.9 g/dL (32.0-36.0); Mean Corpuscular Hemoglobin 27.1 pg (27.0-31.0); Mean Corpuscular Volume 90.4 fL (78.0-98.0); Mean Platelet Volume 9.2 fL (7.4-10.4); Platelet Count 144 10x3/uL (130-400); RBC Distribution Width 16.7 % (11.5-14.5); Red Blood Cell (RBC) Count 3.03 mill/uL (4.20-5.40)
[2023-11-16 05:46] LABS: Anion Gap 12 mmol/L (10-20); BUN (Urea Nitrogen) 28 mg/dL (9.8-20.1); Calc. Creatinine Clearance 72 mL/min (70-130); Calcium 8.3 mg/dL (7.8-10.44); Carbon Dioxide 28 mmol/L (23-31); Chloride 102 mmol/L (98-107); Estimated GFR 31; Glucose 102 mg/dL (80-115); Potassium 4.3 mmol/L (3.5-5.1); Sodium 138 mmol/L (136-145)
[2023-11-16 05:47] LABS: Vancomycin, Random 20.2 ug/mL (See Comment)
[2023-11-16] MEDS: Vancomycin 1 GM in Premix 1 BAG IVPB SCH (09:39)
[2023-11-16] MEDS: Nystatin Powder 15 GM BOT TOP SCH (15:21)
[2023-11-17] MEDS: cefTRIAXone\\ROCEPHIN 1 GM in Sodium Chloride 0.9% 100 ML IVPB SCH (00:07)
[2023-11-17 04:38] LABS: #Basophils Less than 0.03 10x3/uL (0.0-0.2); %Basophils 0.2 % (0.0-1.0); %Eosinophils 3.9 % (0.0-10.0); %Monocytes 7.1 % (0.0-10.0); %Neutrophils 68.5 % (42.0-75.0); Hematocrit 30.1 % (36.0-47.0); Mean Corpuscular HGB CONC 29.9 g/dL (32.0-36.0); Mean Corpuscular Hemoglobin 26.4 pg (27.0-31.0); Mean Corpuscular Volume 88.3 fL (78.0-98.0); Mean Platelet Volume 9.5 fL (7.4-10.4); Platelet Count 154 10x3/uL (130-400); RBC Distribution Width 16.8 % (11.5-14.5); Red Blood Cell (RBC) Count 3.41 mill/uL (4.20-5.40)
[2023-11-17 05:24] LABS: Anion Gap 10 mmol/L (10-20); BUN (Urea Nitrogen) 27 mg/dL (9.8-20.1); Calc. Creatinine Clearance 67 mL/min (70-130); Calcium 8.3 mg/dL (7.8-10.44); Carbon Dioxide 28 mmol/L (23-31); Chloride 105 mmol/L (98-107); Estimated GFR 28; Glucose 86 mg/dL (80-115); Potassium 4.3 mmol/L (3.5-5.1); Sodium 139 mmol/L (136-145)
[2023-11-17 07:52] VITALS: BMI 66.4
[2023-11-17] MEDS: LevoFLOXacin 500 MG TAB PO SCH (09:27)
[2023-11-17] MEDS: Loratadine 10 MG TAB PO SCH (09:27)
[2023-11-17 17:30] VITALS: BP 146/70; TEMP 97.7
== END 2023-11-17 17:39 | DRG 871 ==
LOC: ERS 18:30 → ERHOLD 11-15 00:41 → 2NO 11-15 13:56
PROVIDERS: ADMIT Internal Medicine; ATTEND Internal Medicine
DX: A41.02 Sepsis due to Methicillin resistant Staphylococcus aureus (principal); I50.33 Acute on chronic diastolic (congestive) heart failure; N17.9 Acute kidney failure, unspecified; G93.40 Encephalopathy, unspecified; J96.10 Chronic respiratory failure, unspecified whether with hypoxia or hypercapnia; N39.0 Urinary tract infection, site not specified; Z68.44 Body mass index [BMI] 60.0-69.9, adult; L97.929 Non-pressure chronic ulcer of unspecified part of left lower leg with unspecified severity; L97.919 Non-pressure chronic ulcer of unspecified part of right lower leg with unspecified severity; G47.33 Obstructive sleep apnea (adult) (pediatric); J44.9 Chronic obstructive pulmonary disease, unspecified; E03.9 Hypothyroidism, unspecified; E78.5 Hyperlipidemia, unspecified; K21.9 Gastro-esophageal reflux disease without esophagitis; L98.499 Non-pressure chronic ulcer of skin of other sites with unspecified severity; E66.01 Morbid (severe) obesity due to excess calories; F41.9 Anxiety disorder, unspecified; F32.A Depression, unspecified; E11.622 Type 2 diabetes mellitus with other skin ulcer; Z98.890 Other specified postprocedural states
CPT/HCPCS: 36415; 70450; 71045; 80048; 80053; 80202; 81001; 82805; 83605; 85025; 87040; 87070; 87077; 87086; 87186; 87205; 93005; 94640; 97139; J0696; J1644; J1956; J2185; J3370; J3370-JW; J3490

== ENCOUNTER 2023-12-07 05:13 | Emergency (ER) | payer MEDICARE | END 2023-12-07 10:01 | LOC: ERS 05:13 | DX: M79.89 Other specified soft tissue disorders (principal); M79.604 Pain in right leg; M79.605 Pain in left leg | CPT/HCPCS: 93970 ==

== ENCOUNTER → 2024-05-24 | Emergency (ER) | payer MEDICARE, MEDICAID ==
[2024-05-25 15:20] LABS: #Basophils 0.05 10x3/uL (0.0-0.2); %Basophils 0.8 % (0.0-1.0); %Eosinophils 4.7 % (0.0-10.0); %Lymphocytes 33.1 % (21.0-51.0); %Neutrophils 52.8 % (42.0-75.0); Hematocrit 34.2 % (36.0-47.0); Hemoglobin 9.7 g/dL (12.0-16.0); Mean Corpuscular HGB CONC 28.4 g/dL (32.0-36.0); Mean Corpuscular Hemoglobin 28.3 pg (27.0-31.0); Mean Corpuscular Volume 99.7 fL (78.0-98.0); Mean Platelet Volume 9.2 fL (7.4-10.4); Platelet Count 207 10x3/uL (130-400); RBC Distribution Width 16.6 % (11.5-14.5); Red Blood Cell (RBC) Count 3.43 mill/uL (4.20-5.40)
[2024-05-25 15:21] LABS: Band 1 % (5-11); Eosinophils 7 % (0-10); Lymphocytes 31 % (21-51); Monocytes 7 % (0-10); Neutrophil 51 % (42-75); Plasma Cells 0 % (0-0); Platelet Adequacy Comment Appears Adequate; Stomatocytes SLIGHT = 2-5 cells (100X) (0-1/hpf); Total Cell Count 100
[2024-05-25 15:47] LABS: ALT (SGPT) 5 U/L (8-55); AST (SGOT) 16 U/L (5-34); Albumin 2.6 g/dL (3.4-4.8); Alkaline Phosphatase 106 U/L (40-110); Anion Gap 12 mmol/L (10-20); BUN (Urea Nitrogen) 12 mg/dL (9.8-20.1); Bilirubin, Total 0.2 mg/dL (0.2-1.2); Calc. Creatinine Clearance 0 mL/min (70-130); Calcium 8.7 mg/dL (7.8-10.44); Carbon Dioxide 45 mmol/L (23-31); Chloride 91 mmol/L (98-107); Estimated GFR 66; Globulin 4.6 g/dL (2.4-3.5); Glucose 94 mg/dL (80-115); Protein, Total 7.2 g/dL (5.8-8.1); Sodium 144 mmol/L (136-145)
[2024-05-25 15:50] LABS: Lactic Acid 1.07 mmol/L (0.5-2.2)
[2024-05-29 08:47] LABS: Bilirubin Negative (Negative); Blood, Urine Trace (Negative); Clarity Turbid (Clear); Glucose, Urine (Dipstick) Normal (Negative); Ketone, Urine Negative (Negative); Leukocyte 500 Leu/uL (Negative); Nitrite 2+ (Negative); Protein, Urine (Dipstick) 20 mg/dL (Neg-Trace); Specific Gravity, Urine 1.008 (1.002-1.036); Squamous Epithelial 0-3 HPF (0-3); Urobilinogen Normal mg/dL (Less than 2); WBC/HPF 21-50 HPF (0-3)
[2024-05-29 08:48] LABS: Bacteria/HPF 1+ HPF (None Seen)
== END ==
LOC: ERS 15:15
DX: T17.990A Other foreign object in respiratory tract, part unspecified in causing asphyxiation, initial encounter (principal); R06.02 Shortness of breath
CPT/HCPCS: 71045; 80053; 81003; 81015; 83605; 83880; 85025; 87040; 87077; 87086; 87186; 96374

== ENCOUNTER 2024-08-06 08:45 | Inpatient (IN) | payer MEDICARE, MEDICAID ==
[2024-08-06 09:21] LABS: Analyzer IN Cardio ER; Base Excess 9.3 mEq/L (-2.0 to +3.0); Calcium, Ionized (venous) 1.02 mmol/L (1.16-1.32); Chloride (VBG) 98 mmol/L (98-106); Hematocrit-VBG 29 % (36.0-47.0); Hemoglobin (Hb) 9.7 g/dL (11.7-16.1); Potassium (VBG) 3.68 mmol/L (3.70-5.30); Sodium 140 mmol/L (133-146); pH (venous) 7.473 (7.32-7.43)
[2024-08-06 09:36] LABS: #Basophils 0.05 10x3/uL (0.0-0.2); %Basophils 0.3 % (0.0-1.0); %Eosinophils 1.6 % (0.0-10.0); %Lymphocytes 8.5 % (21.0-51.0); %Monocytes 4.4 % (0.0-10.0); %Neutrophils 84.7 % (42.0-75.0); Hematocrit 32.3 % (36.0-47.0); Hemoglobin 9.5 g/dL (12.0-16.0); Mean Corpuscular HGB CONC 29.4 g/dL (32.0-36.0); Mean Corpuscular Hemoglobin 28.9 pg (27.0-31.0); Mean Corpuscular Volume 98.2 fL (78.0-98.0); Mean Platelet Volume 9.5 fL (7.4-10.4); Platelet Count 183 10x3/uL (130-400); RBC Distribution Width 15.4 % (11.5-14.5); Red Blood Cell (RBC) Count 3.29 mill/uL (4.20-5.40)
[2024-08-06 09:48] LABS: INR-International Normal Ratio 1.2; PTT 32.4 sec (22.9-36.1)
[2024-08-06] MEDS ORDERED: Furosemide 40 MG (4 mL) VIAL ONE (09:48)
[2024-08-06] MEDS ORDERED: methylPREDNISolone Sod Succ/PF 125 MG/2 ML VIAL ONE (09:48)
[2024-08-06] MEDS ORDERED: Sodium Chloride 0.9% 100 ML ONE (09:49)
[2024-08-06] MEDS ORDERED: Cefepime 2 GM VIAL ONE (09:49)
[2024-08-06 09:57] LABS: ALT (SGPT) Less than 7 U/L (Less than 34); AST (SGOT) 23 U/L (11-34); Albumin 2.5 g/dL (3.1-4.5); Alkaline Phosphatase 97 U/L (40-110); Anion Gap 14 mmol/L (10-20); BUN (Urea Nitrogen) 18 mg/dL (9.8-20.1); Bilirubin, Total 0.4 mg/dL (0.3-1.2); Calc. Creatinine Clearance 0 mL/min (70-130); Calcium 8.5 mg/dL (7.8-10.44); Carbon Dioxide 34 mmol/L (23-31); Chloride 99 mmol/L (98-107); Estimated GFR 53; Glucose 97 mg/dL (80-115); Lipase 7 U/L (8-78); Potassium 3.7 mmol/L (3.5-5.1); Protein, Total 7.5 g/dL (5.8-8.1); Sodium 143 mmol/L (136-145)
[2024-08-06] MEDS ORDERED: Albuterol 2.5 MG (0.5 mL) NEB ONE (10:03)
[2024-08-06] MEDS ORDERED: Albuterol 2.5 MG (3 mL) NEB ONE (10:03)
[2024-08-06 10:04] LABS: Troponin I 0.187 ng/mL (< 0.028)
[2024-08-06 10:56] LABS: Bacteria/HPF 4+ HPF (None Seen); Bilirubin Negative (Negative); Blood, Urine Negative (Negative); CAUTI Indications for Culture Fever or rigors; Clarity Turbid (Clear); Glucose, Urine (Dipstick) Normal (Negative); Ketone, Urine Negative (Negative); Leukocyte 500 Leu/uL (Negative); Nitrite 1+ (Negative); Protein, Urine (Dipstick) 20 mg/dL (Neg-Trace); RBC/HPF 0-3 HPF (0-3); Specific Gravity, Urine 1.009 (1.002-1.036); Squamous Epithelial 0-3 HPF (0-3); Urobilinogen Normal mg/dL (Less than 2)
[2024-08-06 10:57] LABS: Urine Culture Reflex Yes Yes
[2024-08-06] MEDS ORDERED: Ciprofloxacin Lactate D5W 400 mg (200 mL) BAG ONE (11:31)
[2024-08-06 12:08] LABS: Magnesium 2.2 mg/dL (1.6-2.6)
[2024-08-06] MEDS ORDERED: Ipratropium/Albuterol 3 ML NEB NEB PRN (14:01)
[2024-08-06] MEDS ORDERED: Ondansetron ODT 4 MG TAB PO PRN (14:02)
[2024-08-06] MEDS ORDERED: Senokot S 8.6-50 MG TAB PO PRN (14:02)
[2024-08-06] MEDS ORDERED: Ondansetron PF 4 MG/2 ML Vial IVP PRN (14:02)
[2024-08-06 14:23] LABS: Troponin I 0.315 ng/mL (< 0.028)
[2024-08-06] MEDS ORDERED: Insulin Regular, Human 100 UNIT/ML 10 ML VIAL SC PRN ×2 (14:30)
[2024-08-06] MEDS ORDERED: Glucagon 1 MG/ML KIT IM PRN (14:30)
[2024-08-06] MEDS ORDERED: Dextrose 5% in Water 1,000 ML IV PRN (14:30)
[2024-08-06] MEDS ORDERED: Dextrose 50% Abboject 50 ML SYRINGE SLOW IVP PRN (14:30)
[2024-08-06 17:12] VITALS: BMI 66.3
[2024-08-06] MEDS ORDERED: Electrolyte Replacement Protocol FS PRN (17:30)
[2024-08-06] MEDS: Azithromycin 500 MG in Sodium Chloride 0.9% 250 ML 250 ML IVPB SCH (17:43)
[2024-08-06] MEDS: Furosemide 40 MG (4 mL) VIAL SLOW IVP SCH (17:43)
[2024-08-06] MEDS: Electrolyte Replacement Protocol 1 EACH FS ONE (17:43)
[2024-08-06 17:50] LABS: Legionella Urinary Ag Negative (Negative); Strep pneumo Urine Ag NEGATIVE (NEGATIVE)
[2024-08-06 18:12] LABS: Critical Call Chem Troponin I RESULT DECREASING; Troponin I 0.213 ng/mL (< 0.028)
[2024-08-06] MEDS: Vancomycin (BATCH) 2.5 GM in Premix 1 BAG IVPB SCH (19:13)
[2024-08-06] MEDS: Ipratropium/Albuterol 3 ML NEB NEB SCH (19:20)
[2024-08-06] MEDS: guaiFENesin ER 600 MG TAB PO SCH (20:57)
[2024-08-06] MEDS: Cefepime 2 GM in Sodium Chloride 0.9% 100 ML IVPB SCH (20:57)
[2024-08-06] MEDS ORDERED: Vancomycin 1 GM in Sodium Chloride 0.9% 250 ML 250 ML IVPB SCH (21:00)
[2024-08-07 04:48] LABS: #Basophils 0.03 10x3/uL (0.0-0.2); #Eosinophils Less than 0.03 10x3/uL (0.0-0.7); %Basophils 0.1 % (0.0-1.0); %Lymphocytes 5.3 % (21.0-51.0); %Monocytes 3.4 % (0.0-10.0); %Neutrophils 90.6 % (42.0-75.0); Hematocrit 33.9 % (36.0-47.0); Hemoglobin 9.7 g/dL (12.0-16.0); Mean Corpuscular HGB CONC 28.6 g/dL (32.0-36.0); Mean Corpuscular Hemoglobin 28.2 pg (27.0-31.0); Mean Corpuscular Volume 98.5 fL (78.0-98.0); Mean Platelet Volume 9.3 fL (7.4-10.4); Platelet Count 170 10x3/uL (130-400); RBC Distribution Width 15.1 % (11.5-14.5); Red Blood Cell (RBC) Count 3.44 mill/uL (4.20-5.40)
[2024-08-07 05:04] LABS: Vancomycin, Random 24.2 ug/mL (See Comment)
[2024-08-07 05:08] LABS: Anion Gap 13 mmol/L (10-20); BUN (Urea Nitrogen) 20 mg/dL (9.8-20.1); Calc. Creatinine Clearance 117 mL/min (70-130); Calcium 8.6 mg/dL (7.8-10.44); Carbon Dioxide 33 mmol/L (23-31); Chloride 100 mmol/L (98-107); Estimated GFR 55; Glucose 152 mg/dL (80-115); Magnesium 2.3 mg/dL (1.6-2.6); Potassium 3.5 mmol/L (3.5-5.1); Sodium 142 mmol/L (136-145)
[2024-08-07] MEDS: Levothyroxine Sodium 100 MCG TAB PO SCH (06:30)
[2024-08-07] MEDS: Aspirin Chewable 81 MG TAB PO SCH (08:17)
[2024-08-07] MEDS: traMADol HCl 50 MG TAB PO SCH (08:17)
[2024-08-07] MEDS: Potassium Chloride 20 MEQ TAB PO SCH (08:17)
[2024-08-07] MEDS: Enoxaparin 40 MG (0.4 mL) SYRINGE SC SCH (08:18)
[2024-08-07] MEDS: Cyclobenzaprine 10 MG TAB PO SCH ×2 (16:08→20:23)
[2024-08-07] MEDS: Vancomycin (BATCH) 1.25 GM in Premix 1 BAG IVPB SCH (17:22)
[2024-08-07] MEDS ORDERED: Lactulose 20 GM (30 mL) UDCUP PO PRN (18:17)
[2024-08-07] MEDS: Magnesium Oxide 400 MG TAB PO SCH (20:23)
[2024-08-07] MEDS: Budesonide 0.5 MG/2 ML NEB NEB SCH (20:48)
[2024-08-07] MEDS ORDERED: guaiFENesin ER 600 MG TAB PO SCH (21:00)
[2024-08-08 04:50] LABS: #Basophils 0.05 10x3/uL (0.0-0.2); %Basophils 0.3 % (0.0-1.0); %Eosinophils 0.2 % (0.0-10.0); %Lymphocytes 9.4 % (21.0-51.0); %Monocytes 3.9 % (0.0-10.0); %Neutrophils 85.8 % (42.0-75.0); Hematocrit 32.6 % (36.0-47.0); Hemoglobin 9.8 g/dL (12.0-16.0); Mean Corpuscular HGB CONC 30.1 g/dL (32.0-36.0); Mean Corpuscular Hemoglobin 28.7 pg (27.0-31.0); Mean Corpuscular Volume 95.3 fL (78.0-98.0); Mean Platelet Volume 9.7 fL (7.4-10.4); Platelet Count 172 10x3/uL (130-400); RBC Distribution Width 15.3 % (11.5-14.5); Red Blood Cell (RBC) Count 3.42 mill/uL (4.20-5.40)
[2024-08-08 05:18] LABS: Vancomycin, Random 23.7 ug/mL (See Comment)
[2024-08-08 05:19] LABS: Anion Gap 13 mmol/L (10-20); BUN (Urea Nitrogen) 23 mg/dL (9.8-20.1); Calc. Creatinine Clearance 119 mL/min (70-130); Calcium 8.6 mg/dL (7.8-10.44); Carbon Dioxide 32 mmol/L (23-31); Chloride 102 mmol/L (98-107); Estimated GFR 55; Glucose 97 mg/dL (80-115); Potassium 3.8 mmol/L (3.5-5.1); Sodium 143 mmol/L (136-145)
[2024-08-08] MEDS: Furosemide 40 MG (4 mL) VIAL SLOW IVP SCH (05:25)
[2024-08-08] MEDS: Pregabalin 25 MG CAP PO SCH (08:41)
[2024-08-08] MEDS: Enoxaparin 40 MG (0.4 mL) SYRINGE SC SCH (22:04)
[2024-08-09 05:56] LABS: #Basophils 0.05 10x3/uL (0.0-0.2); %Basophils 0.5 % (0.0-1.0); %Eosinophils 4.7 % (0.0-10.0); %Lymphocytes 23.3 % (21.0-51.0); %Monocytes 6.1 % (0.0-10.0); %Neutrophils 65.1 % (42.0-75.0); Hematocrit 30.9 % (36.0-47.0); Hemoglobin 9.1 g/dL (12.0-16.0); Mean Corpuscular HGB CONC 29.4 g/dL (32.0-36.0); Mean Corpuscular Hemoglobin 28.4 pg (27.0-31.0); Mean Corpuscular Volume 96.6 fL (78.0-98.0); Mean Platelet Volume 9.5 fL (7.4-10.4); Platelet Count 179 10x3/uL (130-400); RBC Distribution Width 15.7 % (11.5-14.5)
[2024-08-09 06:32] LABS: Anion Gap 12 mmol/L (10-20); BUN (Urea Nitrogen) 21 mg/dL (9.8-20.1); Calc. Creatinine Clearance 137 mL/min (70-130); Calcium 8.4 mg/dL (7.8-10.44); Carbon Dioxide 36 mmol/L (23-31); Chloride 100 mmol/L (98-107); Estimated GFR 65; Glucose 83 mg/dL (80-115); Potassium 3.7 mmol/L (3.5-5.1); Sodium 144 mmol/L (136-145)
[2024-08-10 05:30] LABS: #Basophils 0.06 10x3/uL (0.0-0.2); %Basophils 0.7 % (0.0-1.0); %Eosinophils 6.8 % (0.0-10.0); %Lymphocytes 23.9 % (21.0-51.0); %Monocytes 6.7 % (0.0-10.0); %Neutrophils 61.4 % (42.0-75.0); Hemoglobin 8.8 g/dL (12.0-16.0); Mean Corpuscular HGB CONC 29.3 g/dL (32.0-36.0); Mean Corpuscular Hemoglobin 28.5 pg (27.0-31.0); Mean Corpuscular Volume 97.1 fL (78.0-98.0); Mean Platelet Volume 9.4 fL (7.4-10.4); Platelet Count 180 10x3/uL (130-400); RBC Distribution Width 15.8 % (11.5-14.5); Red Blood Cell (RBC) Count 3.09 mill/uL (4.20-5.40)
[2024-08-10 05:49] LABS: Anion Gap 12 mmol/L (10-20); BUN (Urea Nitrogen) 18 mg/dL (9.8-20.1); Calc. Creatinine Clearance 137 mL/min (70-130); Calcium 8.6 mg/dL (7.8-10.44); Carbon Dioxide 35 mmol/L (23-31); Chloride 101 mmol/L (98-107); Estimated GFR 65; Glucose 89 mg/dL (80-115); Potassium 3.7 mmol/L (3.5-5.1); Sodium 144 mmol/L (136-145)
[2024-08-10] MEDS: Bisacodyl 5 MG TAB PO PRN (08:08)
[2024-08-11] MEDS: traMADol HCl 50 MG TAB PO SCH (02:18)
[2024-08-11 10:20] LABS: Vancomycin, Random 26.9 ug/mL (See Comment)
[2024-08-11] MEDS: guaiFENesin ER 600 MG TAB PO SCH (21:46)
[2024-08-11] MEDS: Vancomycin 1 GM in Premix 1 BAG IVPB SCH (21:46)
[2024-08-12 08:54] LABS: #Basophils 0.05 10x3/uL (0.0-0.2); %Basophils 0.6 % (0.0-1.0); %Eosinophils 6.6 % (0.0-10.0); %Lymphocytes 21.7 % (21.0-51.0); %Monocytes 7.1 % (0.0-10.0); %Neutrophils 63.5 % (42.0-75.0); Hematocrit 32.9 % (36.0-47.0); Hemoglobin 9.6 g/dL (12.0-16.0); Mean Corpuscular HGB CONC 29.2 g/dL (32.0-36.0); Mean Corpuscular Volume 99.4 fL (78.0-98.0); Mean Platelet Volume 9.1 fL (7.4-10.4); Platelet Count 181 10x3/uL (130-400); RBC Distribution Width 15.8 % (11.5-14.5); Red Blood Cell (RBC) Count 3.31 mill/uL (4.20-5.40)
[2024-08-12 09:09] LABS: Anion Gap 16 mmol/L (10-20); BUN (Urea Nitrogen) 15 mg/dL (9.8-20.1); Calc. Creatinine Clearance 123 mL/min (70-130); Carbon Dioxide 34 mmol/L (23-31); Chloride 98 mmol/L (98-107); Estimated GFR 57; Glucose 82 mg/dL (80-115); Potassium 3.8 mmol/L (3.5-5.1); Sodium 144 mmol/L (136-145)
[2024-08-13 06:45] LABS: #Basophils 0.04 10x3/uL (0.0-0.2); %Basophils 0.5 % (0.0-1.0); %Eosinophils 6.9 % (0.0-10.0); %Lymphocytes 18.9 % (21.0-51.0); %Monocytes 8.1 % (0.0-10.0); %Neutrophils 64.8 % (42.0-75.0); Hematocrit 31.3 % (36.0-47.0); Hemoglobin 9.2 g/dL (12.0-16.0); Mean Corpuscular HGB CONC 29.4 g/dL (32.0-36.0); Mean Corpuscular Hemoglobin 28.7 pg (27.0-31.0); Mean Corpuscular Volume 97.5 fL (78.0-98.0); Mean Platelet Volume 9.3 fL (7.4-10.4); Platelet Count 158 10x3/uL (130-400); RBC Distribution Width 15.6 % (11.5-14.5); Red Blood Cell (RBC) Count 3.21 mill/uL (4.20-5.40)
[2024-08-13 07:02] LABS: Anion Gap 12 mmol/L (10-20); BUN (Urea Nitrogen) 16 mg/dL (9.8-20.1); Calc. Creatinine Clearance 91 mL/min (70-130); Calcium 8.6 mg/dL (7.8-10.44); Carbon Dioxide 35 mmol/L (23-31); Chloride 97 mmol/L (98-107); Estimated GFR 40; Glucose 87 mg/dL (80-115); Potassium 3.5 mmol/L (3.5-5.1); Sodium 140 mmol/L (136-145)
[2024-08-13] MEDS: Potassium Chloride 20 MEQ TAB PO SCH (08:07)
[2024-08-13 14:22] VITALS: BMI 67.0
[2024-08-14 06:51] LABS: #Basophils 0.04 10x3/uL (0.0-0.2); %Basophils 0.6 % (0.0-1.0); %Eosinophils 7.6 % (0.0-10.0); %Lymphocytes 30.1 % (21.0-51.0); %Monocytes 10.9 % (0.0-10.0); Hematocrit 31.4 % (36.0-47.0); Mean Corpuscular HGB CONC 28.7 g/dL (32.0-36.0); Mean Corpuscular Hemoglobin 28.2 pg (27.0-31.0); Mean Corpuscular Volume 98.4 fL (78.0-98.0); Mean Platelet Volume 9.5 fL (7.4-10.4); Platelet Count 157 10x3/uL (130-400); RBC Distribution Width 15.8 % (11.5-14.5); Red Blood Cell (RBC) Count 3.19 mill/uL (4.20-5.40)
[2024-08-14 06:56] LABS: Anion Gap 12 mmol/L (10-20); BUN (Urea Nitrogen) 19 mg/dL (9.8-20.1); Calc. Creatinine Clearance 105 mL/min (70-130); Calcium 8.4 mg/dL (7.8-10.44); Carbon Dioxide 35 mmol/L (23-31); Chloride 98 mmol/L (98-107); Estimated GFR 48; Glucose 81 mg/dL (80-115); Potassium 3.5 mmol/L (3.5-5.1); Sodium 141 mmol/L (136-145)
[2024-08-14] MEDS: Potassium Chloride 20 MEQ TAB PO SCH (08:52)
[2024-08-14] MEDS: Carvedilol 3.125 MG TAB PO SCH (17:25)
[2024-08-15 06:28] LABS: #Basophils 0.05 10x3/uL (0.0-0.2); %Basophils 0.9 % (0.0-1.0); %Eosinophils 7.1 % (0.0-10.0); %Lymphocytes 34.6 % (21.0-51.0); %Monocytes 10.5 % (0.0-10.0); %Neutrophils 46.2 % (42.0-75.0); Hematocrit 30.9 % (36.0-47.0); Hemoglobin 8.9 g/dL (12.0-16.0); Mean Corpuscular HGB CONC 28.8 g/dL (32.0-36.0); Mean Corpuscular Hemoglobin 28.6 pg (27.0-31.0); Mean Corpuscular Volume 99.4 fL (78.0-98.0); Mean Platelet Volume 9.5 fL (7.4-10.4); Platelet Count 172 10x3/uL (130-400); RBC Distribution Width 15.8 % (11.5-14.5); Red Blood Cell (RBC) Count 3.11 mill/uL (4.20-5.40)
[2024-08-15 06:34] LABS: Anion Gap 10 mmol/L (10-20); BUN (Urea Nitrogen) 15 mg/dL (9.8-20.1); Calc. Creatinine Clearance 113 mL/min (70-130); Calcium 8.7 mg/dL (7.8-10.44); Carbon Dioxide 34 mmol/L (23-31); Chloride 100 mmol/L (98-107); Estimated GFR 52; Glucose 76 mg/dL (80-115); Potassium 3.9 mmol/L (3.5-5.1); Sodium 140 mmol/L (136-145)
[2024-08-15 07:41] VITALS: BP 128/80; TEMP 97.6
[2024-08-15 09:49] LABS: Anisocytosis SLIGHT = 6-15 cells HPF (0-5); Macrocytosis SLIGHT = 6-15 cells HPF (0-5); Ovalocytes SLIGHT = 2-5 cells HPF (0-1); Platelet Adequacy Comment Platelets Normal; Polychromasia SLIGHT = 2-3 cells HPF (0-2); Stomatocytes SLIGHT = 2-5 cells HPF (0-1)
== END 2024-08-15 10:11 | DRG 871 ==
LOC: ERS 08:45 → ERHOLD 13:24 → IMCU/EMU 16:57 → T4-A 08-08 10:15
PROVIDERS: ADMIT Internal Medicine; ATTEND Hospitalist
DX: A41.52 Sepsis due to Pseudomonas (principal); I50.33 Acute on chronic diastolic (congestive) heart failure; L89.893 Pressure ulcer of other site, stage 3; J96.21 Acute and chronic respiratory failure with hypoxia; J14 Pneumonia due to Hemophilus influenzae; J15.1 Pneumonia due to Pseudomonas; E66.2 Morbid (severe) obesity with alveolar hypoventilation; N13.30 Unspecified hydronephrosis; I5A Non-ischemic myocardial injury (non-traumatic); Z68.44 Body mass index [BMI] 60.0-69.9, adult; A41.3 Sepsis due to Hemophilus influenzae; F41.9 Anxiety disorder, unspecified; F32.A Depression, unspecified; E78.5 Hyperlipidemia, unspecified; E11.9 Type 2 diabetes mellitus without complications; I11.0 Hypertensive heart disease with heart failure; Z93.0 Tracheostomy status; Z88.8 Allergy status to other drugs, medicaments and biological substances; Z88.0 Allergy status to penicillin; Z88.5 Allergy status to narcotic agent; Z88.1 Allergy status to other antibiotic agents; Z90.710 Acquired absence of both cervix and uterus; Z98.890 Other specified postprocedural states; Z71.3 Dietary counseling and surveillance; Y95 Nosocomial condition
CPT/HCPCS: 36415; 36416; 71045; 74176; 80048; 80053; 80202; 81001; 82565; 82805; 83605; 83690; 83735; 83880; 84484; 85025; 85610; 85730; 87040; 87070; 87077; 87081; 87086; 87149; 87186; 87205; 87428; 87449; 87633; 87899; 93005; 94640; 94760; 96365; 96375; 97139; J0456; J0692; J0744; J1650; J1940; J2919; J3370; J7050; J7611; J7620; J7626

== ENCOUNTER 2025-03-04 04:42 | Emergency (ER) | payer MEDICARE, MEDICAID | END 2025-03-04 07:10 | LOC: ERS 04:42 | DX: T82.534A Leakage of infusion catheter, initial encounter (principal); E66.9 Obesity, unspecified | CPT/HCPCS: 99283 ==

== ENCOUNTER 2025-03-24 06:34 | Inpatient (IN) | payer MEDICARE, MEDICAID ==
[2025-03-24 07:04] LABS: Base Excess 16.2 mEq/L (-2.0 to +3.0); Calcium, Ionized (venous) 1.07 mmol/L (1.16-1.32); Chloride (VBG) 94 mmol/L (98-106); Hematocrit-VBG 33 % (36.0-47.0); Hemoglobin (Hb) 11.2 g/dL (11.7-16.1); Potassium (VBG) 4.24 mmol/L (3.70-5.30); Sodium 141 mmol/L (133-146)
[2025-03-24 07:17] LABS: #Basophils 0.07 10x3/uL (0.0-0.2); #Eosinophils 0.31 10x3/uL (0.0-0.7); #Monocytes 0.80 10x3/uL (0.11-0.59); #Neutrophils 5.31 10x3/uL (1.40-6.50); %Basophils 0.8 % (0.0-1.0); %Eosinophils 3.6 % (0.0-10.0); %Lymphocytes 24.5 % (21.0-51.0); %Monocytes 9.2 % (0.0-10.0); %Neutrophils 61.1 % (42.0-75.0); Hematocrit 33.1 % (36.0-47.0); Hemoglobin 9.2 g/dL (12.0-16.0); Mean Corpuscular Hemoglobin 28.4 pg (27.0-31.0); Mean Corpuscular Volume 102.2 fL (78.0-98.0); Platelet Count 186 10x3/uL (130-400); Red Blood Cell (RBC) Count 3.24 mill/uL (4.20-5.40); White Blood Cell (WBC) Count 8.69 10x3/uL (4.8-10.8)
[2025-03-24 07:41] LABS: ALT (SGPT) 10 U/L (Less than 34); AST (SGOT) 24 U/L (11-34); Albumin 2.7 g/dL (3.1-4.5); Alkaline Phosphatase 81 U/L (40-110); Anion Gap 15 mmol/L (10-20); BUN (Urea Nitrogen) 18 mg/dL (9.8-20.1); Bilirubin, Total 0.2 mg/dL (0.3-1.2); Calc. Creatinine Clearance 0 mL/min (70-130); Calcium 9.1 mg/dL (7.8-10.44); Carbon Dioxide 39 mmol/L (23-31); Chloride 92 mmol/L (98-107); Globulin 4.7 g/dL (2.4-3.5); Glucose 88 mg/dL (83-110); Potassium 4.3 mmol/L (3.5-5.1); Sodium 142 mmol/L (136-145)
[2025-03-24] MEDS ORDERED: diphenhydrAMINE 50 MG/ML VIAL ONE (07:49)
[2025-03-24] MEDS ORDERED: Famotidine/PF 20 mg/2ml Vial ONE (07:50)
[2025-03-24] MEDS ORDERED: Magnesium 2 GM/50 ML BAG (IN WATER) ONE (07:52)
[2025-03-24] MEDS ORDERED: cefTRIAXone (ROCEPHIN) 1 GM VIAL ONE (08:10)
[2025-03-24] MEDS ORDERED: Ondansetron PF 4 MG/2 ML Vial IVP PRN (09:56)
[2025-03-24] MEDS ORDERED: Melatonin 3 MG TAB PO PRN (09:56)
[2025-03-24] MEDS ORDERED: Guaifenesin DM 100-10/5 ML UDCUP PO PRN (09:56)
[2025-03-24] MEDS ORDERED: Acetaminophen 325 MG TAB PO PRN (09:56)
[2025-03-24] MEDS ORDERED: Azithromycin 500 MG VIAL ONE (10:05)
[2025-03-24 10:14] LABS: Base Excess 16.2 mEq/L (-2.0 to +3.0); Calcium, Ionized (venous) 1.10 mmol/L (1.16-1.32); Chloride (VBG) 94 mmol/L (98-106); Hematocrit-VBG 32 % (36.0-47.0); Hemoglobin (Hb) 11.0 g/dL (11.7-16.1); Potassium (VBG) 4.07 mmol/L (3.70-5.30); Sodium 142 mmol/L (133-146)
[2025-03-24] MEDS ORDERED: Iopamidol-370 76% 500 ML MDV (1 ML CHARGE) ONE (10:18)
[2025-03-24] MEDS ORDERED: Sodium Chloride For Inhalation 0.9% 3 ML NEB NEB PRN (10:30)
[2025-03-24 11:28] VITALS: BMI 59.1
[2025-03-24 14:01] LABS: Actual Bicarbonate (HCO3a) 49.5 mEq/L (22-28); Base Excess (BEa) 16.9 mEq/L (-2.0 to +3.0); CO2 Tension 132.0 mmHg (35.0-45.0); Calcium, Ionized (arterial) 1.19 mmol/L (1.12-1.30); Hematocrit-ABG 31 % (36.0-47.0); Hemoglobin (Hb) 10.7 g/dL (12.0-16.0); O2 Tension (PaO2), arterial 116.1 mmHg (> 70.0); Potassium - ABG Lab 4.29 mmol/L (3.70-5.30); pH, Arterial 7.192 (7.35-7.45)
[2025-03-24 14:02] LABS: Puncture Site Left Radial artery
[2025-03-24] MEDS: Vancomycin (BATCH) 2.5 GM in Premix 1 BAG IVPB SCH (15:46)
[2025-03-24] MEDS: Carvedilol 3.125 MG TAB PO SCH (20:06)
[2025-03-24] MEDS: DULoxetine 30 MG CAP PO SCH (20:07)
[2025-03-24] MEDS: Famotidine/PF 20 mg/2ml Vial SLOW IVP SCH (20:11)
[2025-03-24] MEDS: TOBRAMYCIN 300 MG/5 ML AMP (INHALATION) IH SCH (20:11)
[2025-03-24] MEDS: Mometasone 100 MCG/Formoterol 5 MCG 120 PUFF INHALER INH SCH (20:11)
[2025-03-24 21:17] LABS: Actual Bicarbonate (HCO3a) 40.8 mEq/L (22-28); Base Excess (BEa) 16.8 mEq/L (-2.0 to +3.0); CO2 Tension 46.5 mmHg (35.0-45.0); Calcium, Ionized (arterial) 1.11 mmol/L (1.12-1.30); Hematocrit-ABG 29 % (36.0-47.0); Hemoglobin (Hb) 9.9 g/dL (12.0-16.0); Potassium - ABG Lab 4.06 mmol/L (3.70-5.30); pH, Arterial 7.561 (7.35-7.45)
[2025-03-24 21:19] LABS: O2 Tension (PaO2), arterial 51.3 mmHg (> 70.0)
[2025-03-24] MEDS: Clotrimazole 1 % Cream 30 GM TUBE TOP SCH (22:38)
[2025-03-24] MEDS: Ketorolac Tromethamine 30 MG (1 mL) VIAL IVP SCH (23:31)
[2025-03-25] MEDS: hydrALAZINE 20 MG/ML VIAL SLOW IVP PRN (04:21)
[2025-03-25 04:47] LABS: Vancomycin, Random 43.1 ug/mL (See Comment)
[2025-03-25 04:49] LABS: ALT (SGPT) 8 U/L (Less than 34); AST (SGOT) 24 U/L (11-34); Albumin 2.6 g/dL (3.1-4.5); Alkaline Phosphatase 81 U/L (40-110); Anion Gap 20 mmol/L (10-20); BUN (Urea Nitrogen) 22 mg/dL (9.8-20.1); Bilirubin, Total 0.3 mg/dL (0.3-1.2); Calc. Creatinine Clearance 117 mL/min (70-130); Calcium 9.0 mg/dL (7.8-10.44); Carbon Dioxide 38 mmol/L (23-31); Chloride 92 mmol/L (98-107); Globulin 4.6 g/dL (2.4-3.5); Glucose 163 mg/dL (83-110); Potassium 4.1 mmol/L (3.5-5.1); Sodium 146 mmol/L (136-145)
[2025-03-25] MEDS: Aspirin Chewable 81 MG TAB PO SCH (08:47)
[2025-03-25] MEDS: Simvastatin 10 MG TAB PO SCH (08:48)
[2025-03-25] MEDS: Pregabalin 25 MG CAP PO SCH (08:48)
[2025-03-25] MEDS: Enoxaparin 40 MG (0.4 mL) SYRINGE SC SCH (10:33)
[2025-03-25 12:41] VITALS: BMI 59.1
[2025-03-25 13:52] LABS: Actual Bicarbonate (HCO3v) 44.5 mEq/L (22-28)
[2025-03-25 13:53] LABS: Actual Bicarbonate (HCO3v) 45.7 mEq/L (22-28)
[2025-03-25 14:34] VITALS: BP 151/72
[2025-03-25] MEDS: Vancomycin HCl 750 MG in Sodium Chloride 0.9% 250 ML 250 ML IVPB SCH (15:44)
[2025-03-25 15:56] VITALS: TEMP 98
== END 2025-03-25 18:00 | disposition hospice, inpatient (51) | DRG 208 ==
LOC: ERS 06:34 → 2NO 09:50 → CCU 14:22 → OBSVTOIN 15:32
PROVIDERS: ADMIT Family Medicine; ATTEND Hospitalist
PROC: 5A1945Z Respiratory Ventilation, 24-96 Consecutive Hours (ICD-10-PCS; principal; 2025-03-24)
PROC: 3E03329 Introduction of Other Anti-infective into Peripheral Vein, Percutaneous Approach (ICD-10-PCS; 2025-03-24)
PROC: 4A133R1 Monitoring of Arterial Saturation, Peripheral, Percutaneous Approach (ICD-10-PCS; 2025-03-24)
DX: J18.9 Pneumonia, unspecified organism (principal); J96.21 Acute and chronic respiratory failure with hypoxia; L89.323 Pressure ulcer of left buttock, stage 3; L89.313 Pressure ulcer of right buttock, stage 3; J96.22 Acute and chronic respiratory failure with hypercapnia; I50.32 Chronic diastolic (congestive) heart failure; J44.1 Chronic obstructive pulmonary disease with (acute) exacerbation; E66.2 Morbid (severe) obesity with alveolar hypoventilation; Z68.43 Body mass index [BMI] 50.0-59.9, adult; J44.0 Chronic obstructive pulmonary disease with (acute) lower respiratory infection; Z66 Do not resuscitate; Z51.5 Encounter for palliative care; E78.5 Hyperlipidemia, unspecified; G25.81 Restless legs syndrome; E03.9 Hypothyroidism, unspecified; M10.9 Gout, unspecified; K21.9 Gastro-esophageal reflux disease without esophagitis; D64.9 Anemia, unspecified; F41.9 Anxiety disorder, unspecified; F32.A Depression, unspecified; G47.00 Insomnia, unspecified; Z90.49 Acquired absence of other specified parts of digestive tract; Z98.890 Other specified postprocedural states; Z88.8 Allergy status to other drugs, medicaments and biological substances; Z88.5 Allergy status to narcotic agent; Z88.1 Allergy status to other antibiotic agents; Z88.0 Allergy status to penicillin; Z91.040 Latex allergy status; Z91.02 Food additives allergy status; Z90.710 Acquired absence of both cervix and uterus; Z79.899 Other long term (current) drug therapy; Z79.82 Long term (current) use of aspirin; Z79.2 Long term (current) use of antibiotics; Z79.01 Long term (current) use of anticoagulants; Z79.52 Long term (current) use of systemic steroids; Z79.1 Long term (current) use of non-steroidal anti-inflammatories (NSAID); Z79.890 Hormone replacement therapy; Z87.01 Personal history of pneumonia (recurrent); I11.0 Hypertensive heart disease with heart failure; E11.9 Type 2 diabetes mellitus without complications; Z99.81 Dependence on supplemental oxygen; Z88.6 Allergy status to analgesic agent; Z91.041 Radiographic dye allergy status; Z86.73 Personal history of transient ischemic attack (TIA), and cerebral infarction without residual deficits; Z78.1 Physical restraint status; Z93.0 Tracheostomy status
CPT/HCPCS: 36415; 36600; 71045; 71275; 80053; 80202; 82805; 83605; 83880; 84484; 85025; 87040; 93005; 94002; 94003; 94640; 96365; 96367; 96375; 96376; G0378; J0360; J0456; J0696; J1200; J1650; J1885; J2060; J2185; J2919; J3373; J3475; Q9967

== ENCOUNTER 2025-03-25 18:23 | Inpatient (IN) | payer OTHER ==
[2025-03-25] MEDS ORDERED: Acetaminophen 325 MG TAB PO PRN (19:02)
[2025-03-25] MEDS ORDERED: diphenhydrAMINE 25 MG CAP PO PRN (19:02)
[2025-03-25] MEDS ORDERED: diphenhydrAMINE 50 MG/ML VIAL IVP PRN (19:03)
[2025-03-25] MEDS ORDERED: Ondansetron PF 4 MG/2 ML Vial IVP PRN (19:04)
[2025-03-25] MEDS ORDERED: Bisacodyl 10 MG SUPP PR PRN (19:07)
[2025-03-25] MEDS ORDERED: Atropine Sulfate 1% Ophth Soln 5 ml Bottle SL PRN (19:07)
[2025-03-26] MEDS: Scopolamine 1 mg/72 hour Patch TOP PRN (09:01)
[2025-03-27 08:33] VITALS: BP 106/64; TEMP 97.3
[2025-03-27] MEDS: Glycopyrrolate 0.4 MG/ 2 ML VIAL SLOW IVP PRN (17:23)
== END 2025-03-27 17:40 | disposition expired | DRG 951 ==
LOC: CCU 18:23 → T4-B 22:02
PROVIDERS: ADMIT Family Medicine; ATTEND Family Medicine
DX: Z51.5 Encounter for palliative care (principal); J15.0 Pneumonia due to Klebsiella pneumoniae; J96.21 Acute and chronic respiratory failure with hypoxia; I50.32 Chronic diastolic (congestive) heart failure; J44.1 Chronic obstructive pulmonary disease with (acute) exacerbation; E66.2 Morbid (severe) obesity with alveolar hypoventilation; E78.5 Hyperlipidemia, unspecified; E66.9 Obesity, unspecified; E11.9 Type 2 diabetes mellitus without complications; I11.0 Hypertensive heart disease with heart failure; Z88.0 Allergy status to penicillin; Z88.8 Allergy status to other drugs, medicaments and biological substances; Z88.1 Allergy status to other antibiotic agents; Z91.040 Latex allergy status; Z98.890 Other specified postprocedural states; K21.9 Gastro-esophageal reflux disease without esophagitis; E03.9 Hypothyroidism, unspecified; D64.9 Anemia, unspecified; F41.9 Anxiety disorder, unspecified; F32.A Depression, unspecified; M10.9 Gout, unspecified; G47.00 Insomnia, unspecified
CPT/HCPCS: 94640; J2060